=== PATIENT | female | born 1945 | race Caucasian/White ===

== ENCOUNTER → 2016-11-15 | Outpatient (CLI) | payer MEDICARE ==
--- NOTE | 2016-11-15 16:33 | CT ---
EXAMINATION TYPE: CT sinus wo con DATE OF EXAM: 11/15/2016 4:27 PM COMPARISON: CT facial bones September 17, 2012 HISTORY: Sinus pressure, cough, sore throat, and low grade fever. Chronic sinusitis per order CT DLP: 666.00 mGycm. Automated Exposure Control for Dose Reduction was Utilized. TECHNIQUE: CT scan of the sinuses is performed without contrast, axial images are obtained, coronal r eformatted images are also reviewed. FINDINGS: There is new mild to moderate mucosal thickening in the dominant right sphenoid sinus with some patchy opacification along right lateral aspect identified. The maxillary, ethmoid, and bilatera l frontal sinuses are well aerated without suspicious opacification. Left sphenoid sinus is felt wit hin normal limits The ostiomeatal complex is patent bilaterally on the coronal images. Visualized portion of mastoid air cells show no abnormal opacification. The globes are intact bilate rally. Visualized portion of brain parenchyma is unremarkable. IMPRESSION: Acute on chronic right sphenoid sinus disease is now present.
== END | disposition home or self-care (01) ==
LOC: RADCTMAIN 15:43
PROVIDERS: ATTEND Internal Medicine
DX: J01.30 Acute sphenoidal sinusitis, unspecified (principal); J32.3 Chronic sphenoidal sinusitis
CPT/HCPCS: 70486

== ENCOUNTER → 2017-01-20 | Outpatient (CLI) | payer MEDICARE ==
[2017-01-20 08:32] LABS: Ionized Calcium 5.7 mg/dL (4.5-5.3)
[2017-01-20 10:54] LABS: Hemoglobin A1C 6.1 % (4.2-6.1)
[2017-01-20 11:40] LABS: ALT 50 U/L (9-52); AST 32 U/L (14-36); Alkaline Phosphatase 70 U/L (38-126); Anion Gap 8 mmol/L; Blood Urea Nitrogen 15 mg/dL (7-17); Calcium 10.6 mg/dL (8.4-10.2); Carbon Dioxide 30 mmol/L (22-30); Chloride 106 mmol/L (98-107); Cholesterol 217 mg/dL (<200); Glucose 101 mg/dL (74-99); HDL Cholesterol 98 mg/dL (40-60); Magnesium 2.1 mg/dL (1.6-2.3); Non-African American GFR(MDRD) >60 (>60 ml/min/1.73 sqM); Potassium 4.5 mmol/L (3.5-5.1); Sodium 144 mmol/L (137-145); Triglycerides 99 mg/dL (<150)
[2017-01-20 17:13] LABS: ACTH <5.00 pg/mL (0.00-45.99)
== END ==
LOC: LABWHC1 07:59
PROVIDERS: ATTEND Internal Medicine Endocrinology, Diabetes & Metabolism
DX: E27.9 Disorder of adrenal gland, unspecified (principal); I10 Essential (primary) hypertension; E55.9 Vitamin D deficiency, unspecified; R73.09 Other abnormal glucose
CPT/HCPCS: 36415; 80053; 80061; 82024; 82306; 82330; 82533; 83036; 83735; 83970

== ENCOUNTER → 2017-02-20 | Outpatient (CLI) | payer MEDICARE ==
--- NOTE | 2017-02-20 14:04 | MM ---
Reason for exam: screening (asymptomatic). Last mammogram was performed 1 year and 3 months ago. History: Patient is postmenopausal. Family history of premenopausal breast cancer in mother at age 50. Reductions of both breasts, July 2005. Benign stereotactic core biopsy of the right breast, February 23, 2003. Benign stereotactic core biopsy of the left breast, August 28, 2000. Benign core biopsy of the left breast. Benign core biopsy of the right breast. Benign excisional biopsy of the right breast. Took estrogen for 20 years beginning at age 47. Physical Findings: A clinical breast exam by your physician is recommended on an annual basis and results should be correlated with mammographic findings. MG 3D Screening Mammo W/Cad Bilateral CC and MLO view(s) were taken. Prior study comparison: November 24, 2015, bilateral MG 3d screening mammo w/cad. June 28, 2014, bilateral MG diagnostic mammo w CAD CHARY. There are scattered fibroglandular densities. Finding: There are stable typically benign calcifications. There are typically benign calcifications. There is no discrete abnormality. Stable post operative changes. No significant changes in finding since November 24, 2015 and June 28, 2014. ASSESSMENT: Benign, BI-RAD 2 RECOMMENDATION: Routine screening mammogram of both breasts in 1 year.
== END | disposition home or self-care (01) ==
LOC: RADMAMWWP 09:43
PROVIDERS: ATTEND Internal Medicine Critical Care Medicine
DX: Z12.31 Encounter for screening mammogram for malignant neoplasm of breast (principal)
CPT/HCPCS: 77063; G0202

== ENCOUNTER → 2017-03-20 | Outpatient (CLI) | payer MEDICARE ==
--- NOTE | 2017-03-20 11:05 | US ---
EXAMINATION TYPE: US venous Doppler duplex LE LT DATE OF EXAM: 03/20/2017 10:34 AM COMPARISON: US 30 July 2016 CLINICAL HISTORY: M11.262 M25.562 Left Knee and calf pain. Torn left meniscus per patient. SIDE PERFORMED: Left TECHNIQUE: The lower extremity deep venous system is examined utilizing real time linear array sonog esteban with graded compression, Doppler sonography and color-flow sonography. VESSELS IMAGED: Common Femoral Vein Deep Femoral Vein Greater Saphenous Vein * Femoral Vein Popliteal Vein Small Saphenous Vein * Proximal Calf Veins (* superficial vessels) There is normal compressibility and color flow, normal spectral Doppler waveforms Left Leg: Negative for DVT Tech findings called to Sara at Dr Shetty's Office at exam's end. IMPRESSION: No evident deep venous thrombosis within the deep veins of the left lower extremity as de scribed, follow-up as indicated.
== END | disposition home or self-care (01) ==
LOC: RADUSWWP 10:06
PROVIDERS: ATTEND Orthopaedic Surgery
DX: M25.562 Pain in left knee (principal); M79.669 Pain in unspecified lower leg

== ENCOUNTER → 2017-04-14 | Outpatient (CLI) | payer MEDICARE ==
[2017-04-14 09:43] LABS: Aty Lym Flag Slight; CH 32.4; HCT 40.2 % (34.0-46.0); HDW 2.52; HGB 13.6 gm/dL (11.4-16.0); MCH 32.4 pg (25.0-35.0); MCHC 33.7 g/dL (31.0-37.0); MCV 95.9 fL (80.0-100.0); Mean Platelet Volume 6.8; RBC 4.19 m/uL (3.80-5.40); RDW 12.8 % (11.5-15.5); WBC 3.5 k/uL (3.8-10.6); WBC (Perox) 3.63
[2017-04-14 10:54] LABS: Add Differential Manual Differential
[2017-04-14 10:58] LABS: Nucleated Red Blood Cells 0 /100 WBC (0-0); Total Cells Counted 100
[2017-04-14 10:59] LABS: Manual Review Performed
[2017-04-14 12:03] LABS: ALT 42 U/L (9-52); AST 38 U/L (14-36); Alkaline Phosphatase 60 U/L (38-126); Anion Gap 9 mmol/L; Blood Urea Nitrogen 9 mg/dL (7-17); Calcium 10.4 mg/dL (8.4-10.2); Carbon Dioxide 29 mmol/L (22-30); Chloride 105 mmol/L (98-107); Glucose 96 mg/dL (74-99); Non-African American GFR(MDRD) >60 (>60 ml/min/1.73 sqM); Sodium 143 mmol/L (137-145); Total Bilirubin 0.4 mg/dL (0.2-1.3); Total Protein 6.5 g/dL (6.3-8.2)
== END | disposition home or self-care (01) ==
LOC: LABWHC1 08:38
PROVIDERS: ATTEND Internal Medicine Endocrinology, Diabetes & Metabolism
DX: R00.2 Palpitations (principal); I10 Essential (primary) hypertension; E21.0 Primary hyperparathyroidism; R73.09 Other abnormal glucose; D34 Benign neoplasm of thyroid gland; E27.9 Disorder of adrenal gland, unspecified
CPT/HCPCS: 36415; 80053; 82306; 84439; 84443; 84481; 85025

== ENCOUNTER → 2017-05-08 | Outpatient (CLI) | payer MEDICARE | END | disposition home or self-care (01) | LOC: LABWHC1 11:32 | PROVIDERS: ATTEND Psychiatry & Neurology Neurology | DX: G60.9 Hereditary and idiopathic neuropathy, unspecified (principal); G62.9 Polyneuropathy, unspecified; D68.9 Coagulation defect, unspecified | CPT/HCPCS: 36415; 82607; 84165; 84207; 85730 ==

== ENCOUNTER → 2017-05-14 | Outpatient (CLI) | payer MEDICARE ==
[2017-05-14 19:18] LABS: Blood Urea Nitrogen 16 mg/dL (7-17); Non-African American GFR(MDRD) >60 (>60 ml/min/1.73 sqM)
--- NOTE | 2017-05-14 20:11 | CT ---
EXAMINATION TYPE: CT abdomen w con DATE OF EXAM: 05/14/2017 COMPARISON: 10/07/2015 HISTORY: Bilateral upper quadrant pain, worse on left x several months. Some lower abdominal pain. CT DLP: 561.90 mGycm Automated exposure control for dose reduction was used. TECHNIQUE: Helical acquisition of images was performed from the lung bases through the top of iliac crest to include entire abdomen. CONTRAST: Performed with Oral Contrast and with IV Contrast, patient injected with 100 mL of Omnipaque 300. FINDINGS: Lung bases are clear. There is no pleural effusion. There is no pericardial effusion. Liver spleen pancreas gallbladder appear normal. Bile ducts are not dilated. There is no adrenal mass . There are multiple bilateral renal cortical cysts that measure up to 2.5 cm. There is no hydronephr osis. There is no retroperitoneal adenopathy. I see no bony destructive process. I see no intestinal wall thickening. There are no dilated loops. There is no ascites. IMPRESSION: SMALL RENAL CORTICAL CYSTS WITH PROBABLY NO CHANGE COMPARED TO OLD CT SCAN. SPONDYLOTIC CHANGES NOTED IN THE LUMBAR SPINE. THERE IS MILD SPINAL STENOSIS AT L4-5.
== END | disposition home or self-care (01) ==
LOC: RADCTMAIN 18:44
PROVIDERS: ATTEND Internal Medicine Critical Care Medicine
DX: R10.84 Generalized abdominal pain (principal)
CPT/HCPCS: 82565; 84520; 74160; 36415; Q9967

== ENCOUNTER → 2017-06-05 | Outpatient (CLI) | payer MEDICARE | END | disposition home or self-care (01) | LOC: LABWHC1 09:24 | PROVIDERS: ATTEND Pathology Anatomic Pathology & Clinical Pathology | DX: Z02.89 Encounter for other administrative examinations (principal) | CPT/HCPCS: 36415 ==

== ENCOUNTER 2017-06-27 10:59 | Day surgery (SDC) | payer MEDICARE ==
[2017-06-25 10:06] VITALS: BMI 29.1
[~2017-06-27 10:59] MED LIST: DEXAMETHASONE SOD PHOSPHATE 10 MG/ML 1 ML VIAL IV ONE; HYDROmorphone 1 MG/ML 1 ML SYRINGE IVP PRN; LACTATED RINGERS 1,000 ML IV SCH; MIDAZOLAM 2 MG/2 ML VIAL IV PRN; ONDANSETRON 4 MG/2 ML VIAL IVP ONE; Pre Op ABX Message 1 EACH MISC MISCELLANE ONE
[2017-06-27 11:21] VITALS: RESP 16
[2017-06-27] MEDS ORDERED: LIDOCAINE 1% 20 ML VIAL (10MG/ML) FOR IV START INTRADERMA ONE (11:34)
[2017-06-27 11:39] LABS: Glucose,Whole Blood 101 mg/dL (75-99)
[2017-06-27] MEDS ORDERED: HYDROCORTISONE SUCCINATE 100 MG/2 ML VIAL IV ONE (11:46)
[2017-06-27] MEDS ORDERED: SUCCINYLCHOLINE CHLORIDE 100 MG/5 ML SYR IV ONE (12:36)
[2017-06-27] MEDS ORDERED: fentaNYL (PF) 50 MCG/ML 2 ML AMP ONE (12:36)
[2017-06-27] MEDS ORDERED: MIDAZOLAM 2 MG/2 ML VIAL ONE (12:36)
[2017-06-27] MEDS ORDERED: LIDOCAINE 1% INJ 10MG/ML (20 ML MDV) ONE (12:36)
[2017-06-27] MEDS ORDERED: BUPIVACAINE (PF) 0.25% 30 ML VIAL INTRAARTIC ONE (12:36)
[2017-06-27] MEDS ORDERED: PROPOFOL 10 MG/ML 20 ML VIAL IV ONE (12:36)
[2017-06-27] MEDS ORDERED: KETOROLAC 30 MG/ML 1 ML VIAL ONE (12:36)
[2017-06-27 13:46] VITALS: TEMP 98
--- NOTE | 2017-06-27 13:52 | P.OP ---
Date of Procedure: 06/27/17 Preoperative Diagnosis: Postoperative Diagnosis: Procedure(s) Performed: PREOPERATIVE DIAGNOSIS: 1. Right knee lateral meniscus tear 2. Right knee osteoarthritis, tricompartmental POSTOPERATIVE DIAGNOSIS: 1. Right knee lateral meniscus tear, degenerative posterior horn 2. Right knee medial meniscus tear, posterior horn degenerative 3. Right knee osteoarthritis, patellofemoral, grade 3, medial grade 2, lateral grade 4 PROCEDURES PERFORMED: 1. Right knee arthroscopy, with partial lateral meniscectomy (25)%, posterior horn 2. Arthroscopic partial medial meniscectomy 10%, posterior horn 2. Right knee arthroscopic chondroplasty of patellofemoral and lateral compartments 2. Right knee arthroscopic partial synovectomy ANESTHESIA: owner spa director: None COMPLICATIONS: none ESTIMATED BLOOD LOSS: Less than 10 ml DISPOSITION: To post-anesthesia care unit INDICATIONS: Mrs. Thorpe is a 71-year-old female with a history of right knee pain consistent with arthritis and meniscus tear. She is having mechanical symptoms of catching snapping and popping. Patient presents to the operating room today for arthroscopy with trimming of the meniscus or repair as necessary as well as chondroplasty or smoothing of the articular surfaces. I have explained the procedure in detail as well as potential risks and complications as being inclusive of but not limited to: Bleeding, infection, scarring, discomfort, blood vessel and/or nerve damage, failure to relieve symptoms, persistence or recurrence and/or worsening of symptoms, blood clot, pulmonary embolism, limp, , and other risks, including the need for knee replacement. The consent form has been signed. PROCEDURE: After appropriate consent was obtained, the patient was taken to the operating room and placed supine on the operating table. General anesthesia was initiated. The knee was examined under anesthesia. Medial collateral, lateral collateral, anterior and posterior cruciate ligaments were all intact. Range of motion was 0-125 with mild crepitus in the patellofemoral compartment. Mild effusion but no soft tissue swelling was noted. Prepping and draping of the operative knee was performed in the usual sterile fashion using ChloraPrep. Care was taken that all pressure points were adequately padded. Leg lion and pneumotourniquet were used. ``Time-out" was called according to [facility] standards, confirming patient identity, surgical procedure, side, and antibiotic administration. The surgical portals were placed directly next to the patellar tendon medially and laterally. Camera and instruments were carefully inserted into the knee and arthroscopy was performed. Patellofemoral joint was first inspected. Mild synovitis was seen, and was resected where it appeared particularly inflamed. Patellofemoral joint was noted to be arthritic, with grade 3 changes present over 80 %. Chondroplasty was performed using a shaver and radiofrequency probe, removing unstable cartilage elements and smoothing the surface to eliminate step-off. Lateral compartment was then examined. Lateral meniscus tear was noted involving the posterior horn and appeared to be a stellate-type tear after visualization and probing. The meniscus tear was resected using a combination of basket forceps and shaver. Approximately 25 % of the meniscus was resected. The remaining meniscus was noted to be intact and stable. Hyaline cartilage showed grade 4 changes especially over the lateral femoral condyle. Chondroplasty was performed using a shaver and radiofrequency at a low setting. Medial compartment was then examined. Medial meniscus tear was noted involving the posterior horn and appeared to be a minimal undersurface degenerative-type tear after visualization and probing. The meniscus tear was resected using a combination of basket forceps and shaver. Approximately 10 % of the meniscus was resected. The remaining meniscus was noted to be intact and stable. Hyaline cartilage showed grade 2 changes without need for chondroplasty. Cruciate ligaments were noted to be intact. No loose bodies or ganglion cysts were noted around the cruciate ligaments. Medial and lateral gutters showed no evidence of loose bodies, but some mild synovitis was present and was resected with a shaver. Portals were then closed with 4-0 Monocryl suture. A quantity of Marcaine solution was injected into the knee and around the portal sites. Steri-Strips were applied and tourniquet was deflated. Sterile dressing and light compressive dressing was applied using Webril and WEN wrap. Patient tolerated the procedure well and taken to recovery room in stable condition. Sponge and needle counts were correct. Implants: Indications for Procedure: Operative Findings: Description of Procedure:
[2017-06-27] MEDS ORDERED: MEPERIDINE 50 MG/ML SYRINGE IVP ONE (14:16)
[2017-06-27] MEDS ORDERED: LACTATED RINGERS 1,000 ML IV ONE (14:20)
[2017-06-27 15:43] VITALS: PULSE 65
[2017-06-27 15:59] VITALS: BP 124/61
--- NOTE | 2017-07-02 08:31 | CDI ---
Dr. Kendrick Shetty Mrs. Tohrpe was seen on 06/27 for arthroscopic menisectomy and chondroplasty. The H&P indicates the laterality of the procedure to be on the Left knee. However, the OR indicates the procedure was done on the Right knee. Please clarify this conflicting documentation. Please clarify: *Menisectomy/Chondroplasty done on the LEFT knee *Menisectomy/Chondroplasty done on the RIGHT knee PLEASE RESPOND TO THIS QUERY BY DICTATING AN ADDENDUM TO YOUR OPERATIVE REPORT. Thank you for your assistance. RICH Kearney If you have any question, please contact Ornamental Iron Worker, Janey Rodriguez at . [employer]
--- NOTE | 2017-07-22 20:09 | CDI ---
Dr. Kendrick Shetty Mrs. Thorpe was seen on 06/27 for arthroscopic menisectomy and chondroplasty. The H&P and anesthesia record indicate the laterality of the procedure to be on the Left knee. However, the OR indicates the procedure was done on the Right knee. Please clarify this conflicting documentation. Please clarify: *Menisectomy/Chondroplasty done on the LEFT knee *Menisectomy/Chondroplasty done on the RIGHT knee PLEASE RESPOND TO THIS QUERY BY DICTATING AN ADDENDUM TO YOUR OPERATIVE REPORT. Thank you for your assistance. RICH Kearney If you have any question, please contact Drafter Plumbing, Janey Rodriguez at . [facility]ICJeff
== END 2017-06-27 17:00 | disposition home or self-care (01) ==
LOC: OR 10:59
PROVIDERS: ATTEND Orthopaedic Surgery
DX: M23.251 Derangement of posterior horn of lateral meniscus due to old tear or injury, right knee (principal); M23.221 Derangement of posterior horn of medial meniscus due to old tear or injury, right knee; M17.11 Unilateral primary osteoarthritis, right knee; M65.9 Synovitis and tenosynovitis, unspecified
CPT/HCPCS: 29880; J2250; J1100; J1720; J2175; J2405; J2001; J3010; J1885; J0330; J2704

== ENCOUNTER → 2017-09-01 | Outpatient (CLI) | payer MEDICARE | END | disposition home or self-care (01) | LOC: LABWHC1 12:53 | PROVIDERS: ATTEND Internal Medicine Critical Care Medicine | DX: R10.9 Unspecified abdominal pain (principal) | CPT/HCPCS: 36415; 80074 ==

== ENCOUNTER → 2017-11-12 | Outpatient (CLI) | payer MEDICARE ==
--- NOTE | 2017-11-12 13:26 | XR ---
EXAMINATION TYPE: XR chest w ap lordotic DATE OF EXAM: 11/12/2017 COMPARISON: 11/05/2017 HISTORY: Abnormal chest x-ray TECHNIQUE: Apical lordotic, PA, and lateral views of the chest are obtained. FINDINGS: There is no focal air space opacity, pleural effusion, or pneumothorax seen. The cardiac silhouette size is within normal limits. The osseous structures are intact. IMPRESSION: No acute cardiopulmonary process.
[2017-11-12 20:40] LABS: Parathyroid Hormone Intact 58.9 pg/mL (14.0-72.0)
[2017-11-12 22:37] LABS: DHEA Sulfate <3.0 ug/dL (26.0-430.0)
== END | disposition home or self-care (01) ==
LOC: LABWHC1 12:14
PROVIDERS: ATTEND Internal Medicine Endocrinology, Diabetes & Metabolism
DX: R91.8 Other nonspecific abnormal finding of lung field (principal); E83.52 Hypercalcemia; E27.9 Disorder of adrenal gland, unspecified
CPT/HCPCS: 36415; 71047; 82330; 82627; 83970; 86334; 86335

== ENCOUNTER → 2018-01-19 | Outpatient (CLI) | payer MEDICARE ==
[2018-01-19 09:33] LABS: Ionized Calcium 5.7 mg/dL (4.5-5.3)
[2018-01-19 09:49] LABS: ALT 30 U/L (9-52); AST 26 U/L (14-36); Alkaline Phosphatase 62 U/L (38-126); Anion Gap 7 mmol/L; Blood Urea Nitrogen 11 mg/dL (7-17); Calcium 10.6 mg/dL (8.4-10.2); Carbon Dioxide 32 mmol/L (22-30); Chloride 102 mmol/L (98-107); Cholesterol 173 mg/dL (<200); Glucose 93 mg/dL (74-99); HDL Cholesterol 82 mg/dL (40-60); LDL Cholesterol,Calculated 78 mg/dL (0-99); Potassium 4.6 mmol/L (3.5-5.1); Sodium 141 mmol/L (137-145); Total Bilirubin 0.9 mg/dL (0.2-1.3); Total Protein 6.7 g/dL (6.3-8.2); Triglycerides 63 mg/dL (<150)
[2018-01-19 17:17] LABS: Parathyroid Hormone Intact 46.2 pg/mL (14.0-72.0)
[2018-01-19 17:37] LABS: Vitamin D 25 Hydroxy 66.1 ng/mL (30.0-100.0)
[2018-01-19 19:52] LABS: Hemoglobin A1C 5.8 % (4.0-6.0)
== END | disposition home or self-care (01) ==
LOC: LABWHC1 08:35
PROVIDERS: ATTEND Internal Medicine Endocrinology, Diabetes & Metabolism
DX: E55.9 Vitamin D deficiency, unspecified (principal); E27.9 Disorder of adrenal gland, unspecified; D34 Benign neoplasm of thyroid gland; E78.5 Hyperlipidemia, unspecified
CPT/HCPCS: 36415; 80053; 80061; 82306; 82330; 83036; 83970; 84443

== ENCOUNTER → 2018-03-02 | Outpatient (CLI) | payer MEDICARE ==
--- NOTE | 2018-03-03 08:53 | MM ---
Reason for exam: additional evaluation requested from prior study. Last mammogram was performed 1 year ago. History: Patient is postmenopausal. Family history of premenopausal breast cancer in mother at age 50. Reductions of both breasts, July 2005. Benign stereotactic core biopsy of the right breast, February 23, 2003. Benign stereotactic core biopsy of the left breast, August 28, 2000. Benign core biopsy of the left breast. Benign core biopsy of the right breast. Benign excisional biopsy of the right breast. Took estrogen for 20 years beginning at age 47. Physical Findings: Nurse Summary: 0.5cm nodule in the right breast at 2 o'clock (nurse john). MG 3D Diag Mammo W/Cad CHARY Bilateral CC and MLO view(s) were taken. Prior study comparison: February 20, 2017, bilateral MG 3d screening mammo w/cad. November 24, 2015, bilateral MG 3d screening mammo w/cad. There are scattered fibroglandular densities. Finding: There are typically benign calcifications in both breasts. No suspicious abnormality. Bilateral post surgical change. Bilateral biopsy markers noted. These results were verbally communicated with the patient and result sheet given to the patient on 03/02/18. ASSESSMENT: Benign, BI-RAD 2 RECOMMENDATION: Routine screening mammogram of both breasts in 1 year.
== END | disposition home or self-care (01) ==
LOC: RADMAMWWP 10:10
PROVIDERS: ATTEND Internal Medicine Critical Care Medicine
DX: N64.4 Mastodynia (principal)
CPT/HCPCS: 77066; G0279

== ENCOUNTER → 2018-04-07 | Day surgery (SDC) | payer MEDICARE ==
[2018-03-31 09:10] VITALS: BMI 27.5
[~2018-04-07] MED LIST changes: +BUPIVACAINE (PF) 0.75% 5 ML, HYALURONIDASE, HUMAN RECOMB 150 UNIT, LIDOCAINE 2% (PF) 10... MISCELLANE ONE; +CYCLOPENTOLATE 1% OPHTH SOLN 2 ML BTL OP ONE; -DEXAMETHASONE SOD PHOSPHATE 10 MG/ML 1 ML VIAL IV ONE; +FLURBIPROFEN 0.03% OPHTH DROPS 2.5 ML BTL OP ONE; +GENTAMICIN/PREDNISOL AC OPHTH OINT 3.5GM OPHTHALMIC ONE; -HYDROmorphone 1 MG/ML 1 ML SYRINGE IVP PRN; +LIDOCAINE 1% 20 ML VIAL (10MG/ML) FOR IV START INTRADERMA PRN; -ONDANSETRON 4 MG/2 ML VIAL IVP ONE; +PHENYLEPHRINE 10% OPHTH DROPS 5 ML BTL OP ONE; -Pre Op ABX Message 1 EACH MISC MISCELLANE ONE; +TIMOLOL 0.5% OPHTH DROPS 5 ML BTL OP ONE
== END ==
LOC: OR 12:00
PROVIDERS: ATTEND Ophthalmology
DX: Z53.9 Procedure and treatment not carried out, unspecified reason (principal); H25.13 Age-related nuclear cataract, bilateral; Z88.1 Allergy status to other antibiotic agents

== ENCOUNTER → 2018-04-21 | Outpatient (CLI) | payer MEDICARE ==
[2018-04-21 17:11] LABS: Blood Urea Nitrogen 15 mg/dL (7-17)
--- NOTE | 2018-04-21 18:23 | CT ---
EXAMINATION TYPE: CT angio chest DATE OF EXAM: 04/21/2018 6:13 PM COMPARISON: NONE HISTORY: Patient complains of low grade fever and chest contusions post fall [address] DLP: 542 mGycm Automated exposure control for dose reduction was used. CONTRAST: CTA scan of the thorax is performed with IV Contrast, patient injected with 100 mL of Isovue 370, pul monary embolism protocol. There are 3-D post processed images.. FINDINGS: There is some coarsening of interstitial markings in the lower lung reyes. There is no evidence of a pulmonary mass. There is no pleural effusion. Heart appears enlarged. There is a rounded 5 cm densit y at the right cardiac border at the diaphragm. There is no mediastinal adenopathy. There are no hil ar masses. There is normal contrast opacification of the pulmonary arteries. I see no filling defect. There is no evidence of thoracic aortic aneurysm or dissection. IMPRESSION: NO EVIDENCE OF PULMONARY EMBOLISM. MINIMAL PULMONARY FIBROTIC CHANGES. 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
== END | disposition home or self-care (01) ==
LOC: RADCTMAIN 16:30
PROVIDERS: ATTEND Orthopaedic Surgery
DX: I26.99 Other pulmonary embolism without acute cor pulmonale (principal); M25.561 Pain in right knee; S80.01XD Contusion of right knee, subsequent encounter; M25.572 Pain in left ankle and joints of left foot; S92.102D Unspecified fracture of left talus, subsequent encounter for fracture with routine healing; M79.661 Pain in right lower leg; S80.11XD Contusion of right lower leg, subsequent encounter; S92.355D Nondisplaced fracture of fifth metatarsal bone, left foot, subsequent encounter for fracture with routine healing; R07.82 Intercostal pain
CPT/HCPCS: 82565; 84520; 71275; 36415; Q9967

== ENCOUNTER 2018-05-23 11:45 | Emergency (ER) | payer MEDICARE ==
--- NOTE | 2018-05-23 12:40 | ED ---
General Adult HPI - General Chief complaint: Skin/Abscess/Foreign Body Stated complaint: Rash on forehead Time Seen by Provider: 05/23/18 12:11 Source: patient, RN notes reviewed Mode of arrival: wheelchair Limitations: no limitations - History of Present Illness Initial comments: Patient is a pleasant 72-year-old female presenting to the emergency department with rash. Onset was around the fifth or seventh. Patient did see her primary care physician several days ago and was started on Valtrex. Patient states rash has progressed since that time. Patient does have mild discomfort. Patient states there is some mild irritation as well. Patient's original lesion started on the right upper eyelid/eyebrow region. Patient states this has slightly improved. Patient also has developed lesions of her right forehead and a couple in her right frontal scalp. Patient is unclear if there is any ear discomfort. Patient does have some chronic headaches. Patient states there is some discomfort of the skin near the area of the lesions. Patient states overall is becoming somewhat worse. - Related Data Home Medications Medication Instructions Recorded Confirmed Acetaminophen/Diphenhydramine 1 - 2 tab PO HS PRN 04/13/15 03/31/18 [Tylenol PM 500-25mg] Aspirin 81 mg PO BID 04/13/15 03/31/18 Azelastine HCl 2 sprays EA NOSTRIL BID 04/13/15 03/31/18 Diltiazem Oral [Cardizem*] 30 mg PO QAM 04/13/15 03/31/18 Hypromellose [Artificial Tears] 1 drop BOTH EYES TID PRN 04/13/15 03/31/18 Montelukast [Singulair] 10 mg PO HS 04/13/15 03/31/18 cycloSPORINE [Restasis] 1 drop BOTH EYES BID 04/13/15 03/31/18 Olopatadine HCl [Pataday] 1 drop BOTH EYES QAM 10/03/15 03/31/18 Rosuvastatin Calcium [Crestor] 10 mg PO HS 12/05/15 03/31/18 Budesonide/Formoterol Fumarate 2 puff IH BID 03/13/16 03/31/18 [Symbicort 80-4.5 Mcg Inhaler] Ranitidine HCl 150 mg PO HS 03/13/16 03/31/18 Albuterol Nebulized [Ventolin 2.5 mg INHALATION Q4H PRN 06/25/17 03/31/18 Nebulized] Baclofen 15 mg PO HS 06/25/17 03/31/18 Cetirizine HCl [Zyrtec] 10 mg PO DAILY 06/25/17 03/31/18 Diltiazem HCl 60 mg PO HS 06/25/17 03/31/18 Fluticasone Nasal [place] [Flonase 1 spray EA NOSTRIL DAILY PRN 06/25/17 03/31/18 Nasal [place]] Hydrocortisone [Cortef] 10 mg PO QAM 06/25/17 03/31/18 Bcaa 2 cap PO BID 03/31/18 Biotagen 1 scoop PO DAILY 03/31/18 Curcumin 1 each PO BID 03/31/18 Digestive Enzyme 1 tab PO TID-W/MEALS 03/31/18 Fish Oil 2300mg 2,300 mg PO DAILY 03/31/18 Gi Revive 2 tsp PO BID 03/31/18 Personalized Nutrition Compoun 1 package PO DAILY 03/31/18 Prasterone (Dhea)/Calcium Carb 10 mg PO DAILY 03/31/18 03/31/18 [Dhea 10 mg Tablet] Therbiotic Complete 1 cap PO DAILY 03/31/18 Ut Syngery 1 cap PO BID-W/MEALS 03/31/18 Previous Rx's Medication Instructions Recorded Sodium Chloride 0.65% Nasal [Deep 2 spray NASAL QID PRN #0 spray 12/08/15 Sea (Saline)] Allergies Allergy/AdvReac Type Severity Reaction Status Date / Time levofloxacin [From Levaquin] Allergy Rash/Hives Verified 05/23/18 11:58 Milk Containing Products AdvReac avoids Verified 05/23/18 11:58 [Dairy] dairy products wheat AdvReac avoids Verified 05/23/18 11:58 wheat products processed foods AdvReac avoids Uncoded 05/23/18 11:58 processed foods Review of Systems ROS Statement: Those systems with pertinent positive or pertinent negative responses have been documented in the HPI. ROS Other: All systems not noted in ROS Statement are negative. Constitutional: Denies: fever, chills Eyes: Denies: eye pain ENT: Denies: ear pain Respiratory: Denies: cough Cardiovascular: Denies: chest pain Endocrine: Denies: fatigue Gastrointestinal: Denies: abdominal pain Genitourinary: Denies: dysuria Musculoskeletal: Denies: back pain Skin: Reports: rash Neurological: Reports: headache (Patient states she does have chronic headaches and is on Neurontin secondary to this. Headaches are unchanged.). 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 History of Any Multi-Drug Resistant Organisms: C-DIFF Date of last positivie culture/infection: 09-27-2015 MDRO Source:: stool Past Surgical History: Adenoidectomy, Breast Surgery, Heart Catheterization, Hysterectomy, Joint Replacement, Orthopedic Surgery, Tonsillectomy Additional Past Surgical History / Comment(s): parathyroidectomy, left shoulder arthroscopy -bone spurs removed), epidural injections in back , egd/dilations for pyloric stenosis, pyloroplasty(d/T ulcer),colonoscopy-neg, lt breast bx neg , ventral hernia repair,mole on neck removed-neg, mainor breast reduction and abdominalplasty, LT KNEE SCOPE Past Anesthesia/Blood Transfusion Reactions: No Reported Reaction Additional Past Anesthesia/Blood Transfusion Reaction / Comment(s): takes a little while to wake up.no hx blood transfusion. Past Psychological History: No Psychological Hx Reported Smoking Status: Never smoker Past Alcohol Use History: None Reported Past Drug Use History: None Reported - Past Family History Brother(s) Family Medical History: Coronary Artery Disease (CAD) Additional Family Medical History / Comment(s): heart stents,2nd brother CABG Mother Family Medical History: Cancer Additional Family Medical History / Comment(s): ovarian and breast cancer Father Family Medical History: Coronary Artery Disease (CAD), Hyperlipidemia, Hypertension Additional Family Medical History / Comment(s): quad bypass in his 40's General Exam Limitations: no limitations General appearance: alert, in no apparent distress Head exam: Present: atraumatic Eye exam: Present: normal appearance, PERRL, EOMI, other (Flurosyn staining of the right eye does not reveal any uptake or dendritic change.) ENT exam: Present: normal oropharynx Neck exam: Present: normal inspection Respiratory exam: Present: normal lung sounds bilaterally Cardiovascular Exam: Present: regular rate, normal rhythm GI/Abdominal exam: Present: soft. Absent: tenderness Neurological exam: Present: alert Psychiatric exam: Present: normal affect, normal mood Skin exam: Present: other (Patient does have a single lesion of her right upper eyelid near the eyebrow that does appear to be improving.There may be a small eschar. Lesion of the right forehead does have some secondary satellite lesions. There is a small area of vesicular appearance. Scalp has 2-3 lesions as well. All lesions have mild tenderness.) Course Vital Signs 05/23/18 11:53 Temperature 98.1 F Pulse Rate 63 Respiratory 17 Rate Blood Pressure 143/79 O2 Sat by Pulse 100 Oximetry Medical Decision Making - Medical Decision Making Patient presents with symptoms similar to shingles/herpes zoster. Patient is informed of this and that she is on appropriate treatment. There is no signs of secondary infection at this time. Patient is advised that she can try medicated shampoo for her scalp if desired. Patient is advised of need for close follow-up with ophthalmology. Patient states she does see Dr. Springer. Disposition Clinical Impression: Shingles Disposition: HOME SELF-CARE Condition: Stable Instructions: Shingles (ED) Additional Instructions: Please follow-up with [facility] physician in the next couple days for recheck. Please follow-up with ophthalmology on Friday. Return for fever, increased rash, increased redness, swelling, eye problems, worsening symptoms or any other concerns. You may use Selsun Blue or other similar medicated shampoo to the scalp only. Is patient prescribed a controlled substance at d/c from ED?: No Referrals: Robson Curtis DO [Primary Care Provider] - 1-2 days Daren Cabrales MD [STAFF PHYSICIAN] - 1-2 days Franco French MD [STAFF PHYSICIAN] - 1-2 days Time of Disposition: 12:40
[2018-05-23 12:56] VITALS: BP 139/78; PULSE 70; RESP 16; TEMP 98
== END 2018-05-23 12:55 | disposition home or self-care (01) ==
LOC: EC 11:45
DX: B02.9 Zoster without complications (principal); J45.909 Unspecified asthma, uncomplicated; K21.9 Gastro-esophageal reflux disease without esophagitis; I10 Essential (primary) hypertension; E78.5 Hyperlipidemia, unspecified; G47.30 Sleep apnea, unspecified; Z99.89 Dependence on other enabling machines and devices; Z95.818 Presence of other cardiac implants and grafts; Z79.82 Long term (current) use of aspirin; Z79.51 Long term (current) use of inhaled steroids; Z79.52 Long term (current) use of systemic steroids; Z79.899 Other long term (current) drug therapy; Z88.1 Allergy status to other antibiotic agents; Z91.011 Allergy to milk products; Z91.018 Allergy to other foods
CPT/HCPCS: 99282

== ENCOUNTER → 2018-05-29 | Outpatient (CLI) | payer MEDICARE ==
--- NOTE | 2018-05-30 16:59 | ECHOF ---
Referral Reason:J98.5 Mass in the Mediastinum MEASUREMENTS -------- HEIGHT: 165.1 cm WEIGHT: 75.7 kg BP: RVIDd: 2.4 cm (< 3.3) IVSd: 1.1 cm (0.6 - 1.1) LVIDd: 4.0 cm (3.9 - 5.3) LVPWd: 1.0 cm (0.6 - 1.1) IVSs: 1.3 cm LVIDs: 2.6 cm LVPWs: 1.2 cm LA Diam: 3.0 cm (2.7 - 3.8) LAESV Index (A-L): 23.89 ml/m Ao Diam: 2.9 cm (2.0 - 3.7) AV Cusp: 1.8 cm (1.5 - 2.6) LA Diam: 3.8 cm (2.7 - 3.8) MV EXCURSION: 20.824 mm (> 18.000) MV EF SLOPE: 90 mm/s (70 - 150) EPSS: 0.4 cm MV E Mateo: 0.55 m/s MV DecT: 281 ms MV A Mateo: 0.81 m/s MV E/A Ratio: 0.67 RAP: 5.00 mmHg RVSP: 20.18 mmHg FINDINGS -------- Sinus rhythm. This was a technically good study. LV size, wall thickness and systolic function are normal, with an EF greater than 55%. The left hemal tricular size is normal. The right ventricle is normal in size. The left atrial size is normal. Normal LA size by volume 22+/-6 ml/m2. The right atrial size is normal. The aortic valve is trileaflet, and appears structurally normal. No aortic stenosis or regurgitation. The mitral valve is normal. Mild mitral regurgitation is present. Mild tricuspid regurgitation present. There is no evidence of pulmonary hypertension. The right v entricular systolic pressure, as measured by Doppler, is 20.18mmHg. Trace/mild (physiologic) pulmonic regurgitation. The aortic root size is normal. There is no pericardial effusion. CONCLUSIONS -------- 1. Sinus rhythm. 2. LV size, wall thickness and systolic function are normal, with an EF greater than 55%. 3. The left ventricular size is normal. 4. The left atrial size is normal. 5. The right atrial size is normal. 6. The aortic valve is trileaflet, and appears structurally normal. No aortic stenosis or regurgitati on. 7. Mild mitral regurgitation is present. 8. Mild tricuspid regurgitation present. 9. There is no evidence of pulmonary hypertension. 10. Trace/mild (physiologic) pulmonic regurgitation. 11. The aortic root size is normal. 12. There is no pericardial effusion. AUTO WASHER: Patt Miner RDCS
== END | disposition home or self-care (01) ==
LOC: RADECHMAIN 12:54
PROVIDERS: ATTEND Thoracic Surgery (Cardiothoracic Vascular Surgery)
DX: I08.1 Rheumatic disorders of both mitral and tricuspid valves (principal); Z88.1 Allergy status to other antibiotic agents
CPT/HCPCS: 93306

== ENCOUNTER → 2018-06-11 | Outpatient (CLI) | payer MEDICARE ==
[2018-06-11 08:11] LABS: Blood Urea Nitrogen 14 mg/dL (7-17)
--- NOTE | 2018-06-11 09:43 | CT ---
EXAMINATION TYPE: CT chest abdomen w con DATE OF EXAM: 06/11/2018 COMPARISON: 04/21/2018 and 05/14/2017 and 10/07/2015 HISTORY: 72-year-old female Mediastinal mass, inferior vena cava syndrome. TECHNIQUE: Contiguous axial scanning of the abdomen chest and abdomen following administration of 100 ml Isovue 300 IV contrast. Delayed images through the kidneys and coronal/sagittal reconstructions performed. CT DLP: 519.3 mGycm Automated exposure control for dose reduction was used. FINDINGS: Chest: Heart normal size without pericardial effusion. Mild coronary vessel calcifications are present. Mild atherosclerotic calcifications with conventional arch was a branching anatomy and normal aortic caliber. Small 8 mm nodule the left thyroid gland. No thoracic lymphadenopathy. Redemonstrated dilatation of the thoracic IVC at 4.5 cm wide. In retrospect, this was present back to at least 10/07/2015. There may be focal narrowing as the IVC descends to the liver but most of the h epatic IVC is normal caliber as is the remainder of the abdominal IVC. Minimal scattered emphysematous cysts. Mild subpleural interstitial scarring in the upper lungs. No c onsolidation or pleural effusion. ABDOMEN: Liver normal size. No focal liver lesion. No biliary ductal dilatation. Portal venous system is paten t Gallbladder, adrenal glands, spleen, and mildly atrophic pancreas show no gross abnormality. Multiple hypodense lesions in the kidneys, some of which are too small for accurate CT characterizati on, largest measuring 2.0 cm lateral right kidney compatible with cysts. No dilated small bowel, free fluid, or free air. No mesenteric or retroperitoneal lymphadenopathy. Normal appendix. Scattered moderate stool without pericolonic inflammatory change seen in the visuali zed upper abdomen. Bones: Degenerative disc disease and levoconvex scoliosis lumbar spine. Mild superior endplate compression d eformity of T11 was present back on 04/21/2018 but seems to be new from 05/14/2017. IMPRESSION: 1. 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 UNCHANGED BACK TO AT LEAST 10/07/2015. POSSIBLE POST STENOTIC DILATATION GIVEN SOMEWHAT NARROWED APPEARANCE TO THE IVC AT THE JUNCTION WITH THE HEPATIC IV C. 2. THE HEPATIC IVC AND THE REMAINDER OF THE ABDOMINAL IVC ARE NORMAL CALIBER AND PATENCY IS MAINTAINE D. 3. MINIMAL EMPHYSEMATOUS CHANGE.
== END | disposition home or self-care (01) ==
LOC: RADCTMAIN 07:25
PROVIDERS: ATTEND Thoracic Surgery (Cardiothoracic Vascular Surgery)
DX: J43.9 Emphysema, unspecified (principal); I87.8 Other specified disorders of veins
CPT/HCPCS: 82565; 84520; 71260; 74160; 36415; Q9967

== ENCOUNTER → 2018-07-30 | Outpatient (CLI) | payer MEDICARE ==
[2018-07-30 10:29] LABS: ALT 24 U/L (9-52); AST 24 U/L (14-36); Albumin 3.9 g/dL (3.5-5.0); Alkaline Phosphatase 55 U/L (38-126); Anion Gap 4 mmol/L; Blood Urea Nitrogen 11 mg/dL (7-17); Calcium 10.3 mg/dL (8.4-10.2); Carbon Dioxide 32 mmol/L (22-30); Chloride 106 mmol/L (98-107); Cholesterol 196 mg/dL (<200); Glucose 92 mg/dL (74-99); HDL Cholesterol 65 mg/dL (40-60); LDL Cholesterol,Calculated 120 mg/dL (0-99); Potassium 4.3 mmol/L (3.5-5.1); Sodium 142 mmol/L (137-145); Total Bilirubin 0.7 mg/dL (0.2-1.3); Total Protein 6.4 g/dL (6.3-8.2); Triglycerides 56 mg/dL (<150)
[2018-07-30 17:32] LABS: Vitamin D 25 Hydroxy 59.3 ng/mL (30.0-100.0)
[2018-07-30 17:48] LABS: Parathyroid Hormone Intact 56.8 pg/mL (14.0-72.0)
[2018-07-30 18:20] LABS: ACTH 14.3 pg/mL (0.00-45.99)
[2018-07-30 19:37] LABS: Hemoglobin A1C 5.5 % (4.0-6.0)
== END | disposition home or self-care (01) ==
LOC: LABWHC1 08:38
PROVIDERS: ATTEND Internal Medicine Endocrinology, Diabetes & Metabolism
DX: E55.9 Vitamin D deficiency, unspecified (principal); E27.9 Disorder of adrenal gland, unspecified; D34 Benign neoplasm of thyroid gland; E21.0 Primary hyperparathyroidism; I10 Essential (primary) hypertension; R73.09 Other abnormal glucose
CPT/HCPCS: 36415; 80053; 80061; 82024; 82306; 82533; 83036; 83970; 84443

== ENCOUNTER → 2018-08-04 | Outpatient (CLI) | payer MEDICARE | LOC: LABWHC1 06:40 | PROVIDERS: ATTEND Internal Medicine | DX: R53.83 Other fatigue (principal) | CPT/HCPCS: 36415 ==

== ENCOUNTER → 2019-01-14 | Outpatient (CLI) | payer MEDICARE | END | disposition home or self-care (01) | LOC: LABWHC1 08:28 | PROVIDERS: ATTEND Internal Medicine Endocrinology, Diabetes & Metabolism | DX: E27.0 Other adrenocortical overactivity (principal) | CPT/HCPCS: 36415; 82024; 82533 ==

== ENCOUNTER → 2019-03-11 | Outpatient (CLI) | payer MEDICARE ==
[2019-03-11 11:41] LABS: Albumin 4.2 g/dL (3.80-4.90); Albumin/Globulin Ratio 2.47 (1.60-3.17); Anion Gap 7.3 mmol/L (4.00-12.00); Calcium 10.3 mg/dL (8.7-10.3); Carbon Dioxide 30.7 mmol/L (21.6-31.8); Globulin 1.7 g/dL (1.6-3.3); Potassium 3.9 mmol/L (3.5-5.5); Total Bilirubin 0.8 mg/dL (0.2-1.2); Total Protein 5.9 g/dL (6.2-8.2)
[2019-03-11 12:21] LABS: T4, Free (Free Thyroxine) 0.8 ng/dL (0.80-1.80)
[2019-03-11 14:36] LABS: Hemoglobin A1C 5.8 % (4.0-6.0)
== END | disposition home or self-care (01) ==
LOC: LABWHC1 07:32
PROVIDERS: ATTEND Internal Medicine Endocrinology, Diabetes & Metabolism
DX: E21.0 Primary hyperparathyroidism (principal); E78.5 Hyperlipidemia, unspecified; R73.09 Other abnormal glucose
CPT/HCPCS: 36415; 80053; 80061; 82024; 82533; 83036; 84439; 84443

== ENCOUNTER → 2019-03-24 | Outpatient (CLI) | payer MEDICARE ==
--- NOTE | 2019-03-24 12:02 | BD ---
EXAMINATION TYPE: Axial Bone Density DATE OF EXAM: 03/24/2019 COMPARISON: 06.06.2016 CLINICAL HISTORY: M 85.80 Height: 65 Weight: 170.4 FRAX RISK QUESTIONS: Alcohol (3 or more units per day): no Family History (Parent hip fracture): no Glucocorticoids (More than 3mos): yes (Ex: prednisone, prednisolone, methylprednisolone, dexamethasone, and hydrocortisone). History of Fracture in Adulthood: yes Secondary Osteoporosis: 1. Type 1 Diabetes: no 2. Hyperthyroidism: no 3. Menopause before 45: yes 4. Malnutrition: no 5. Chronic liver disease: no Rheumatoid Arthritis: no Current Tobacco Use: no RISK FACTORS HISTORY OF: Family History of Osteoporosis: no Active: sometimes Diet low in dairy products/other sources of calcium: no Postmenopausal woman: hysterectomy age 45 Lost more than 2 inches in height since high school: no Frequent falls: no Adrenal Insufficiency: yes MEDICATIONS: many supplements, crestor, baclofen, allergy meds, inhalers, heart meds, Neurontin, aspi rin, hydrocortisone Prednisone or other steroids: yes How Lon years Additional History: EXAM MEASUREMENTS: Bone mineral densitometry was performed using the [employer] System. Bone mineral density as measured about the Lumbar spine is: ----- L1-L4(G/cm2): 1.198 T Score Values are as follows: ----- L2: -1.0 ----- L3: 1.3 ----- L4: 1.3 ----- L1-L4: 0.1 Bone mineral density has: decreased -0.1 % since study of: 06.06.2016 Bone mineral density about the R hip (g/cm2): 0.827 Bone mineral density about the L hip (g/cm2): 0.761 T Score values are as follows: -----R Neck: -1.5 -----L Neck: -2.0 -----R Total: -1.2 -----L Total: -1.8 Bone mineral density has: decreased -7.3 % since study of: 06.06.2016 IMPRESSION: Osteopenia (T Score between -2.5 and -1). There is slightly increased risk of fracture and the patient may be considered for treatment. Re-Screen 2-5 years. NOTE: T-SCORE=SD OF THE YOUNG ADULT MEAN.
== END | disposition home or self-care (01) ==
LOC: RADBDWWP 08:02
PROVIDERS: ATTEND Internal Medicine Endocrinology, Diabetes & Metabolism
DX: M85.80 Other specified disorders of bone density and structure, unspecified site (principal)
CPT/HCPCS: 77080

== ENCOUNTER → 2019-04-27 | Outpatient (CLI) | payer MEDICARE | END | disposition home or self-care (01) | LOC: LABWHC1 09:03 | PROVIDERS: ATTEND Internal Medicine Endocrinology, Diabetes & Metabolism | DX: E27.9 Disorder of adrenal gland, unspecified (principal) | CPT/HCPCS: 36415; 82024; 82533 ==

== ENCOUNTER → 2019-06-08 | Outpatient (CLI) | payer MEDICARE ==
[2019-06-08 16:07] LABS: Appearance,Urine Clear (Clear); Bilirubin,Urine Negative (Negative); Blood,Urine Moderate (Negative); Color,Urine Yellow; Glucose,Urine (UA) Negative (Negative); Ketones,Urine Negative (Negative); Leukocyte Esterase,Urine Small (Negative); Nitrite,Urine Negative (Negative); PH, Urine 7.5 (5.0-8.0); Protein,Urine Negative (Negative); RBC,Urine 10 /hpf (0-5); Specific Gravity,Urine 1.006 (1.001-1.035); Squamous Epithelial Cell,Urine 1 /hpf (0-4); Urobilinogen,Urine <2.0 mg/dL (<2.0); WBC,Urine 6 /hpf (0-5)
== END | disposition home or self-care (01) ==
LOC: LABWHC1 14:13
PROVIDERS: ATTEND Internal Medicine Critical Care Medicine
DX: N39.0 Urinary tract infection, site not specified (principal)
CPT/HCPCS: 81001; 87086

== ENCOUNTER → 2019-06-09 | Outpatient (CLI) | payer MEDICARE ==
--- NOTE | 2019-06-10 10:13 | MM ---
Reason for exam: additional evaluation requested from prior study. Last mammogram was performed 1 year and 3 months ago. History: Patient is postmenopausal. Family history of premenopausal breast cancer in mother at age 50. Reductions of both breasts, July 2005. Benign stereotactic core biopsy of the right breast, February 23, 2003. Benign stereotactic core biopsy of the left breast, August 28, 2000. Benign core biopsy of the left breast. Benign core biopsy of the right breast. Benign excisional biopsy of the right breast. Took estrogen for 20 years beginning at age 47. Physical Findings: Nurse did not find any significant physical abnormalities on exam. MG 3D Diag Mammo W/Cad CHARY Bilateral CC and MLO view(s) were taken. Prior study comparison: March 02, 2018, bilateral MG 3d diag mammo w/cad CHARY. February 20, 2017, bilateral MG 3d screening mammo w/cad. There are scattered fibroglandular densities. Benign appearing bilateral calcifications. Lateral left middle depth asymmetry appears stable. Left biopsy marker noted. These results were verbally communicated with the patient and result sheet given to the patient on 06/09/19. ASSESSMENT: Benign, BI-RAD 2 RECOMMENDATION: Routine screening mammogram of both breasts in 1 year. Manage on a clinical basis with regard to right lateral erythema, improving per history.
== END | disposition home or self-care (01) ==
LOC: RADMAMWWP 13:35
PROVIDERS: ATTEND Internal Medicine Critical Care Medicine
DX: N64.4 Mastodynia (principal)
CPT/HCPCS: 77066; G0279; 77062

== ENCOUNTER → 2019-06-10 | Outpatient (CLI) | payer MEDICARE | LOC: CPPFTMAIN 13:50 | PROVIDERS: ATTEND Internal Medicine Critical Care Medicine | DX: J45.909 Unspecified asthma, uncomplicated (principal) | CPT/HCPCS: 94060; 94726; 94729 ==

== ENCOUNTER → 2019-07-14 | Outpatient (CLI) | payer MEDICARE ==
[2019-07-14 18:08] LABS: Amorphous Sediment,Urine Rare /hpf; Appearance,Urine Clear (Clear); Bacteria,Urine Rare /hpf; Bilirubin,Urine Negative (Negative); Blood,Urine Moderate (Negative); Color,Urine Light Yellow; Glucose,Urine (UA) Negative (Negative); Ketones,Urine Negative (Negative); Leukocyte Esterase,Urine Small (Negative); Mucus,Urine Rare /hpf; Nitrite,Urine Negative (Negative); PH, Urine 6.5 (5.0-8.0); Protein,Urine Negative (Negative); RBC,Urine 39 /hpf (0-5); Specific Gravity,Urine 1.004 (1.001-1.035); Squamous Epithelial Cell,Urine 1 /hpf (0-4); Urobilinogen,Urine <2.0 mg/dL (<2.0); WBC,Urine 8 /hpf (0-5)
== END | disposition home or self-care (01) ==
LOC: LABWHC1 16:05
PROVIDERS: ATTEND Internal Medicine Critical Care Medicine
DX: R50.82 Postprocedural fever (principal)
CPT/HCPCS: 36415; 81001; 87040; 87086

== ENCOUNTER → 2019-07-22 | Outpatient (CLI) | payer MEDICARE ==
[2019-07-22 09:17] LABS: Basophils # (A) 0.1 k/uL (0-0.2); Basophils % (A) 1 %; Eosinophils # (A) 0.2 k/uL (0-0.7); Eosinophils % (A) 3 %; HGB 11.7 gm/dL (11.4-16.0); Lymphocytes # (A) 2.1 k/uL (1.0-4.8); Lymphocytes % (A) 39 %; MCH 31.7 pg (25.0-35.0); MCHC 32.5 g/dL (31.0-37.0); MCV 97.5 fL (80.0-100.0); Mean Platelet Volume 6.6; Monocytes # (A) 0.4 k/uL (0-1.0); Monocytes % (A) 8 %; Neutrophils # (A) 2.5 k/uL (1.3-7.7); Neutrophils % (A) 46 %; Platelet Count 325 k/uL (150-450); RDW 12.9 % (11.5-15.5); WBC 5.5 k/uL (3.8-10.6)
[2019-07-22 16:37] LABS: Vitamin D 25 Hydroxy 34.5 ng/mL (30.0-100.0)
[2019-07-22 16:40] LABS: African American GFR (CKD) 106.3 (60.0-200.0); Albumin 4.2 g/dL (3.80-4.90); Albumin/Globulin Ratio 2.21 (1.60-3.17); Anion Gap 8.1 mmol/L (4.00-12.00); BUN/Creat Ratio 16.67 Ratio (12.00-20.00); Calcium 10.6 mg/dL (8.7-10.3); Carbon Dioxide 24.9 mmol/L (21.6-31.8); Globulin 1.9 g/dL (1.6-3.3); Potassium 4.1 mmol/L (3.5-5.5); Total Bilirubin 0.5 mg/dL (0.3-1.2); Total Protein 6.1 g/dL (6.2-8.2)
[2019-07-22 18:40] LABS: ACTH 20.7 pg/mL (0.00-45.99)
== END | disposition home or self-care (01) ==
LOC: LABWHC1 08:46
PROVIDERS: ATTEND Internal Medicine Infectious Disease
DX: E27.40 Unspecified adrenocortical insufficiency (principal); M81.0 Age-related osteoporosis without current pathological fracture; E55.9 Vitamin D deficiency, unspecified
CPT/HCPCS: 36415; 80053; 82024; 82306; 82533; 83970; 85025

== ENCOUNTER 2019-08-09 19:31 | Emergency (ER) | payer MEDICARE ==
[2019-08-09 20:56] LABS: Basophils # (A) 0.1 k/uL (0-0.2); Basophils % (A) 1 %; Eosinophils # (A) 0.1 k/uL (0-0.7); Eosinophils % (A) 1 %; HCT 38.4 % (34.0-46.0); HGB 13.1 gm/dL (11.4-16.0); Lymphocytes # (A) 2.5 k/uL (1.0-4.8); Lymphocytes % (A) 27 %; MCH 31.7 pg (25.0-35.0); MCHC 34.1 g/dL (31.0-37.0); MCV 93.2 fL (80.0-100.0); Monocytes # (A) 0.6 k/uL (0-1.0); Monocytes % (A) 7 %; Neutrophils # (A) 5.8 k/uL (1.3-7.7); Neutrophils % (A) 63 %; Platelet Count 368 k/uL (150-450); RBC 4.12 m/uL (3.80-5.40); RDW 12.5 % (11.5-15.5); WBC 9.2 k/uL (3.8-10.6)
[2019-08-09 21:03] LABS: Appearance,Urine Clear (Clear); Bilirubin,Urine Negative (Negative); Blood,Urine Moderate (Negative); Color,Urine Light Yellow; Glucose,Urine (UA) Negative (Negative); Ketones,Urine Negative (Negative); Leukocyte Esterase,Urine Small (Negative); Mucus,Urine Rare /hpf; Nitrite,Urine Negative (Negative); PH, Urine 6.5 (5.0-8.0); Protein,Urine Negative (Negative); RBC,Urine 10 /hpf (0-5); Specific Gravity,Urine 1.003 (1.001-1.035); Squamous Epithelial Cell,Urine <1 /hpf (0-4); Urobilinogen,Urine <2.0 mg/dL (<2.0); WBC,Urine 4 /hpf (0-5)
[2019-08-09 21:05] LABS: ALT 25 U/L (9-52); AST 29 U/L (14-36); African American GFR (CKD) >90 (>60 ml/min/1.73 sqM); Albumin 4.5 g/dL (3.5-5.0); Alkaline Phosphatase 111 U/L (38-126); Anion Gap 14 mmol/L; Blood Urea Nitrogen 9 mg/dL (7-17); Calcium 11.4 mg/dL (8.4-10.2); Carbon Dioxide 24 mmol/L (22-30); Chloride 103 mmol/L (98-107); Creatine Kinase 57 U/L (30-135); Glucose 97 mg/dL (74-99); Phosphorus 3.3 mg/dL (2.5-4.5); Potassium 3.8 mmol/L (3.5-5.1); Sodium 141 mmol/L (137-145); Total Bilirubin 0.6 mg/dL (0.2-1.3); Total Protein 7.5 g/dL (6.3-8.2)
--- NOTE | 2019-08-09 21:06 | ED ---
Arrhythmia/Palpitations HPI - General Chief Complaint: Arrhythmia/Palpitations Stated Complaint: Heart Palpitations, Dizziness Time Seen by Provider: 08/09/19 20:26 Source: patient, RN notes reviewed, old records reviewed Mode of arrival: wheelchair Limitations: no limitations - History of Present Illness Initial Comments: This is a 73-year-old female the ER for evaluation. Patient is today for evaluation of palpitations and elevated heart rate. Patient does have history of atrial tachycardia of some sort and blood pressure which she does take dil tiazem 4. Patient fell and she had palpitations heart rate in the 120s prior to arrival. Symptoms resolved patient was not doing anything cardioverted no significant physical activity no chest pain or shortness of breath and diaphoresis. Patient denies drug or alcohol abuse. No other recent change in medications, patient currently asymptomatic MD Complaint: "heart racing", palpitations -: minutes(s), hour(s) Context: occurred during rest Arrhythmia History: SVT, on anti-coagulants Treatments Prior to Arrival: calcium channel gina - Related Data Home Medications Medication Instructions Recorded Confirmed Aspirin 81 mg PO BID 04/13/15 08/09/19 Diltiazem Oral [Cardizem*] 30 mg PO QAM 04/13/15 08/09/19 Montelukast [Singulair] 10 mg PO 04/13/15 08/09/19 Budesonide/Formoterol Fumarate 2 puff INHALATION RT-BID 03/13/16 08/09/19 [Symbicort 80-4.5 Mcg Inhaler] Albuterol Nebulized [Ventolin 2.5 mg INHALATION RT-QID PRN 06/25/17 08/09/19 Nebulized] Baclofen 10 mg PO 06/25/17 08/09/19 Diltiazem HCl 60 mg PO 06/25/17 08/09/19 Bcaa 2 cap PO BID 03/31/18 08/09/19 Biotagen 1 scoop PO DAILY 03/31/18 08/09/19 Digestive Enzyme 1 tab PO TID-W/MEALS 03/31/18 08/09/19 Gi Revive 2 tsp PO BID 03/31/18 08/09/19 Personalized Nutrition Compoun 1 package PO DAILY 03/31/18 08/09/19 Therbiotic Complete 1 cap PO DAILY 03/31/18 08/09/19 Cholecalciferol [Vitamin D3 (25 5,000 unit PO HS 08/09/19 08/09/19 Mcg = 1000 Iu)] Diltiazem Oral [Cardizem Oral] 30 mg PO ONCE PRN 08/09/19 08/09/19 Pregabalin [Lyrica] 50 mg PO BID 08/09/19 08/09/19 Rosuvastatin Calcium [Crestor] 10 mg PO HS 08/09/19 08/09/19 Allergies Allergy/AdvReac Type Severity Reaction Status Date / Time levofloxacin [From Levaquin] Allergy Rash/Hives Verified 08/09/19 20:26 Milk Containing Products AdvReac avoids Verified 08/09/19 20:26 [Dairy] dairy products wheat AdvReac avoids Verified 08/09/19 20:26 wheat products processed foods AdvReac avoids Uncoded 08/09/19 20:26 processed foods Review of Systems ROS Statement: Those systems with pertinent positive or pertinent negative responses have been documented in the HPI. ROS Other: All systems not noted in ROS Statement are negative. 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 History of Any Multi-Drug Resistant Organisms: C-DIFF Date of last positivie culture/infection: 09-27-2015 MDRO Source:: stool Past Surgical History: Adenoidectomy, Breast Surgery, Heart Catheterization, Hysterectomy, Joint Replacement, Orthopedic Surgery, Tonsillectomy Additional Past Surgical History / Comment(s): parathyroidectomy, left shoulder arthroscopy -bone spurs removed), epidural injections in back , egd/dilations for pyloric stenosis, pyloroplasty(d/T ulcer),colonoscopy-neg, lt breast bx neg, ventral hernia repair,mole on neck removed-neg, mainor breast reduction and abdominalplasty, LT KNEE SCOPE, spinal fusion 06/17/19 Past Anesthesia/Blood Transfusion Reactions: No Reported Reaction Additional Past Anesthesia/Blood Transfusion Reaction / Comment(s): takes a little while to wake up.no hx blood transfusion. Past Psychological History: No Psychological Hx Reported Smoking Status: Never smoker Past Alcohol Use History: None Reported Past Drug Use History: None Reported - Past Family History Brother(s) Family Medical History: Coronary Artery Disease (CAD) Additional Family Medical History / Comment(s): heart stents,2nd brother CABG Mother Family Medical History: Cancer Additional Family Medical History / Comment(s): ovarian and breast cancer Father Family Medical History: Coronary Artery Disease (CAD), Hyperlipidemia, Hypertension Additional Family Medical History / Comment(s): quad bypass in his 40's General Exam Limitations: no limitations General appearance: alert, in no apparent distress, anxious Head exam: Present: atraumatic, normocephalic, normal inspection Eye exam: Present: normal appearance, PERRL, EOMI. Absent: scleral icterus, con junctival injection, periorbital swelling ENT exam: Present: normal exam, mucous membranes moist Neck exam: Present: normal inspection. Absent: tenderness, meningismus, lymphadenopathy Respiratory exam: Present: normal lung sounds bilaterally. Absent: respiratory distress, wheezes, rales, rhonchi, stridor Cardiovascular Exam: Present: regular rate, normal rhythm, normal heart sounds. Absent: systolic murmur, diastolic murmur, rubs, gallop, clicks GI/Abdominal exam: Present: soft, normal bowel sounds. Absent: distended, tenderness, guarding, rebound, rigid Extremities exam: Present: normal inspection, full ROM, normal capillary refill. Absent: tenderness, pedal edema, joint swelling, calf tenderness Back exam: Present: normal inspection Neurological exam: Present: alert, oriented X3, CN II-XII intact Psychiatric exam: Present: normal affect, normal mood Skin exam: Present: warm, dry, intact, normal color. 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 Symptoms resolved here in ER patient's a symptomatically labwork is normal EKG is negative and patient can be discharged home - Lab Data Result diagrams: 08/09/19 20:22 08/09/19 20:22 Lab Results 08/09/19 08/09/19 08/09/19 Range/Units 20:20 20:22 20:22 WBC 9.2 (3.8-10.6) k/uL RBC 4.12 (3.80-5.40) m/uL Hgb 13.1 (11.4-16.0) gm/dL Hct 38.4 (34.0-46.0) % MCV 93.2 (80.0-100.0) fL MCH 31.7 (25.0-35.0) pg MCHC 34.1 (31.0-37.0) g/dL RDW 12.5 (11.5-15.5) % Plt Count 368 (150-450) k/uL Neutrophils % 63 % Lymphocytes % 27 % Monocytes % 7 % Eosinophils % 1 % Basophils % 1 % Neutrophils # 5.8 (1.3-7.7) k/uL Lymphocytes # 2.5 (1.0-4.8) k/uL Monocytes # 0.6 (0-1.0) k/uL Eosinophils # 0.1 (0-0.7) k/uL Basophils # 0.1 (0-0.2) k/uL PT (9.0-12.0) sec INR (<1.2) APTT (22.0-30.0) sec Sodium 141 (137-145) mmol/L Potassium 3.8 (3.5-5.1) mmol/L Chloride 103 (98-107) mmol/L Carbon Dioxide 24 (22-30) mmol/L Anion Gap 14 mmol/L BUN 9 (7-17) mg/dL Creatinine 0.53 (0.52-1.04) mg/dL Est GFR (CKD-EPI)AfAm >90 (>60 ml/min/1.73 sqM) Est GFR (CKD-EPI)NonAf >90 (>60 ml/min/1.73 sqM) Glucose 97 (74-99) mg/dL Calcium 11.4 H (8.4-10.2) mg/dL Phosphorus 3.3 (2.5-4.5) mg/dL Magnesium 2.0 (1.6-2.3) mg/dL Total Bilirubin 0.6 (0.2-1.3) mg/dL AST 29 (14-36) U/L ALT 25 (9-52) U/L Alkaline Phosphatase 111 (38-126) U/L Creatine Kinase 57 (30-135) U/L Troponin I (0.000-0.034) ng/mL NT-Pro-B Natriuret Pep pg/mL Total Protein 7.5 (6.3-8.2) g/dL Albumin 4.5 (3.5-5.0) g/dL TSH 1.800 (0.465-4.680) mIU/L Urine Color Light Yellow Urine Appearance Clear (Clear) Urine pH 6.5 (5.0-8.0) Ur Specific [place] 1.003 (1.001-1.035) Urine Protein Negative (Negative) Urine Glucose (UA) Negative (Negative) Urine Ketones Negative (Negative) Urine Blood Moderate H (Negative) Urine Nitrite Negative (Negative) Urine Bilirubin Negative (Negative) Urine Urobilinogen <2.0 (<2.0) mg/dL Ur Leukocyte Esterase Small H (Negative) Urine RBC 10 H (0-5) /hpf Urine WBC 4 (0-5) /hpf Ur Squamous Epith Cells <1 (0-4) /hpf Urine Mucus Rare H (None) /hpf 08/09/19 08/09/19 08/09/19 Range/Units 20:22 20:22 20:22 WBC (3.8-10.6) k/uL RBC (3.80-5.40) m/uL Hgb (11.4-16.0) gm/dL Hct (34.0-46.0) % MCV (80.0-100.0) fL MCH (25.0-35.0) pg MCHC (31.0-37.0) g/dL RDW (11.5-15.5) % Plt Count (150-450) k/uL Neutrophils % % Lymphocytes % % Monocytes % % Eosinophils % % Basophils % % Neutrophils # (1.3-7.7) k/uL Lymphocytes # (1.0-4.8) k/uL Monocytes # (0-1.0) k/uL Eosinophils # (0-0.7) k/uL Basophils # (0-0.2) k/uL PT 11.1 (9.0-12.0) sec INR 1.0 (<1.2) APTT 24.6 (22.0-30.0) sec Sodium (137-145) mmol/L Potassium (3.5-5.1) mmol/L Chloride (98-107) mmol/L Carbon Dioxide (22-30) mmol/L Anion Gap mmol/L BUN (7-17) mg/dL Creatinine (0.52-1.04) mg/dL Est GFR (CKD-EPI)AfAm (>60 ml/min/1.73 sqM) Est GFR (CKD-EPI)NonAf (>60 ml/min/1.73 sqM) Glucose (74-99) mg/dL Calcium (8.4-10.2) mg/dL Phosphorus (2.5-4.5) mg/dL Magnesium (1.6-2.3) mg/dL Total Bilirubin (0.2-1.3) mg/dL AST (14-36) U/L ALT (9-52) U/L Alkaline Phosphatase (38-126) U/L Creatine Kinase (30-135) U/L Troponin I <0.012 (0.000-0.034) ng/mL NT-Pro-B Natriuret Pep 189 pg/mL Total Protein (6.3-8.2) g/dL Albumin (3.5-5.0) g/dL TSH (0.465-4.680) mIU/L Urine Color Urine Appearance (Clear) Urine pH (5.0-8.0) Ur Specific [place] (1.001-1.035) Urine Protein (Negative) Urine Glucose (UA) (Negative) Urine Ketones (Negative) Urine Blood (Negative) Urine Nitrite (Negative) Urine Bilirubin (Negative) Urine Urobilinogen (<2.0) mg/dL Ur Leukocyte Esterase (Negative) Urine RBC (0-5) /hpf Urine WBC (0-5) /hpf Ur Squamous Epith Cells (0-4) /hpf Urine Mucus (None) /hpf - Radiology Data Radiology results: report reviewed (This x-rays negative for acute disease), image reviewed Disposition Clinical Impression: Tachycardia, Palpitations Disposition: HOME SELF-CARE Condition: Good Instructions (If sedation given, give patient instructions): Heart Palpitations (ED) Is patient prescribed a controlled substance at d/c from ED?: No Referrals: Robson Curtis DO [Primary Care Provider] - 1-2 days
[2019-08-09 21:09] LABS: Partial Thromboplastin Time 24.6 sec (22.0-30.0); Prothrombin Time 11.1 sec (9.0-12.0)
--- NOTE | 2019-08-09 21:09 | XR ---
EXAMINATION TYPE: XR chest 2V DATE OF EXAM: 08/09/2019 COMPARISON: 12/19/2017 12/19/2017 HISTORY: Syncope TECHNIQUE: Frontal and lateral views of the chest are obtained. FINDINGS: Heart and mediastinum are normal. Lungs are clear. Diaphragm is normal. There are chest le ads. Bony thorax is intact. IMPRESSION: Normal chest. No change.
[2019-08-09 23:09] VITALS: BP 133/88; PULSE 78; RESP 18; TEMP 98
== END 2019-08-09 23:04 | disposition home or self-care (01) ==
LOC: EC 19:31
DX: R00.2 Palpitations (principal); R00.0 Tachycardia, unspecified; J45.909 Unspecified asthma, uncomplicated; E78.5 Hyperlipidemia, unspecified; I10 Essential (primary) hypertension; M19.90 Unspecified osteoarthritis, unspecified site; G47.30 Sleep apnea, unspecified; Z88.1 Allergy status to other antibiotic agents; Z91.011 Allergy to milk products; Z91.018 Allergy to other foods; Z79.01 Long term (current) use of anticoagulants; Z79.51 Long term (current) use of inhaled steroids; Z79.82 Long term (current) use of aspirin; Z79.899 Other long term (current) drug therapy; Z95.818 Presence of other cardiac implants and grafts; Z98.1 Arthrodesis status; Z86.79 Personal history of other diseases of the circulatory system; Z99.89 Dependence on other enabling machines and devices; Z82.49 Family history of ischemic heart disease and other diseases of the circulatory system
CPT/HCPCS: 36415; 71046; 80053; 81001; 82550; 83735; 83880; 84100; 84443; 84484; 85025; 85610; 85730; 93005; 99285

== ENCOUNTER → 2019-08-13 | Outpatient (CLI) | payer MEDICARE ==
[2019-08-13 11:29] LABS: Ionized Calcium 6.2 mg/dL (4.5-5.3)
[2019-08-13 12:56] LABS: ACTH 36.3 pg/mL (0.00-45.99)
[2019-08-13 13:39] LABS: Vitamin D 25 Hydroxy 56.9 ng/mL (30.0-100.0)
[2019-08-13 14:01] LABS: African American GFR (CKD) 106.3 (60.0-200.0); Albumin 4.3 g/dL (3.80-4.90); Albumin/Globulin Ratio 2.15 (1.60-3.17); Anion Gap 9.7 mmol/L (4.00-12.00); BUN/Creat Ratio 13.33 Ratio (12.00-20.00); Carbon Dioxide 24.3 mmol/L (21.6-31.8); Phosphorus 3.2 mg/dL (2.4-5.1); Potassium 4.1 mmol/L (3.5-5.5); Total Bilirubin 0.6 mg/dL (0.3-1.2); Total Protein 6.3 g/dL (6.2-8.2)
[2019-08-13 18:24] LABS: Calcium 24 Hour,Urine 206.4 mg/24Hr (100.0-250.0)
== END | disposition home or self-care (01) ==
LOC: LABWHC1 06:40
PROVIDERS: ATTEND Internal Medicine
DX: E21.0 Primary hyperparathyroidism (principal); E27.9 Disorder of adrenal gland, unspecified
CPT/HCPCS: 36415; 80053; 81050; 82024; 82306; 82330; 82340; 82533; 83970; 84100

== ENCOUNTER 2019-08-19 08:28 | Inpatient (IN) | payer MEDICARE ==
[2019-08-19 10:35] LABS: Basophils % (A) 1 %; Eosinophils # (A) 0.1 k/uL (0-0.7); Eosinophils % (A) 2 %; HCT 36.8 % (34.0-46.0); HGB 12.2 gm/dL (11.4-16.0); Lymphocytes # (A) 1.9 k/uL (1.0-4.8); Lymphocytes % (A) 36 %; MCH 32.3 pg (25.0-35.0); MCHC 33.1 g/dL (31.0-37.0); MCV 97.4 fL (80.0-100.0); Mean Platelet Volume 5.8; Monocytes # (A) 0.4 k/uL (0-1.0); Monocytes % (A) 7 %; Neutrophils # (A) 2.7 k/uL (1.3-7.7); Neutrophils % (A) 51 %; Platelet Count 297 k/uL (150-450); RBC 3.78 m/uL (3.80-5.40); RDW 12.5 % (11.5-15.5); WBC 5.3 k/uL (3.8-10.6)
[2019-08-19 10:44] LABS: Partial Thromboplastin Time 24.1 sec (22.0-30.0); Prothrombin Time 10.6 sec (9.0-12.0)
[2019-08-19 10:48] LABS: ALT 22 U/L (9-52); AST 29 U/L (14-36); African American GFR (CKD) >90 (>60 ml/min/1.73 sqM); Albumin 4.1 g/dL (3.5-5.0); Alkaline Phosphatase 98 U/L (38-126); Anion Gap 7 mmol/L; Blood Urea Nitrogen 9 mg/dL (7-17); Carbon Dioxide 27 mmol/L (22-30); Chloride 108 mmol/L (98-107); Creatine Kinase 50 U/L (30-135); Glucose 91 mg/dL (74-99); Magnesium 2.1 mg/dL (1.6-2.3); Potassium 3.8 mmol/L (3.5-5.1); Sodium 142 mmol/L (137-145); Total Bilirubin 0.5 mg/dL (0.2-1.3); Total Protein 6.8 g/dL (6.3-8.2)
[2019-08-19 11:04] LABS: D-Dimer 4.03 mg/L FEU (<0.60)
--- NOTE | 2019-08-19 11:27 | CT ---
EXAMINATION TYPE: CT angio chest DATE OF EXAM: 08/19/2019 COMPARISON: 06/29/2018 HISTORY: 73 year-old female shortness of breath, Positive DVT TECHNIQUE: Contiguous axial scanning of the chest performed with IV Contrast, patient injected with 8 0 mL of Isovue 370. Coronal/sagittal MIP reconstructions performed. CT DLP: 367.2 mGycm Automated exposure control for dose reduction was used. FINDINGS: Heart limits of normal in size without pericardial effusion. Aorta is normal caliber with conventional arch vessel branching anatomy. Satisfactory opacification of the pulmonary arterial system with a segmental branch pulmonary embolus left upper lobe. No flattening of the interventricular septum or reflux of contrast into the hepatic veins. No thoracic lymphadenopathy by CT size criteria. Prominent dependent atelectasis. Calcified granuloma right lower lobe. Mild biapical pleural-parenchy mal scarring. Right upper lobe emphysematous cyst. Visualized upper abdomen shows unilateral right renal cyst measuring 2.1 cm and suggestion of a tiny hernia. Bones: No osseous destructive process. IMPRESSION: 1. EXAM POSITIVE FOR A SOLITARY SEGMENTAL BRANCH LEFT UPPER LOBE PULMONARY EMBOLUS. 2. COPD WITH MINIMAL EMPHYSEMATOUS CYST IN THE RIGHT UPPER LOBE. Findings called to the Dr. Blount in the ER at 11:24 AM.
--- NOTE | 2019-08-19 12:47 | ED ---
Extremity Problem HPI - General Chief complaint: Extremity Problem,Nontraumatic Stated complaint: positive DVT Time Seen by Provider: 08/19/19 09:01 Source: patient, RN notes reviewed Mode of arrival: wheelchair Limitations: no limitations - History of Present Illness Initial comments: This is a 73-year-old female who was sent in today by her doctor for venous Dopplers to rule out DVT. She does have positive findings on both lower extremities to the popliteal veins. Additionally she does states she's been having some intermittent episodes of shortness of breath no overt chest pain no palpitations or other symptoms. She currently does have an event monitor on she's had on for about 2 weeks and will extend out to MD Complaint: extremity pain, extremity swelling - Related Data Home Medications Medication Instructions Recorded Confirmed Diltiazem Oral [Cardizem*] 30 mg PO QAM 04/13/15 08/19/19 Montelukast [Singulair] 10 mg PO HS 04/13/15 08/19/19 Budesonide/Formoterol Fumarate 2 puff INHALATION RT-BID 03/13/16 08/19/19 [Symbicort 80-4.5 Mcg Inhaler] Albuterol Nebulized [Ventolin 2.5 mg INHALATION RT-QID PRN 06/25/17 08/19/19 Nebulized] Baclofen 10 mg PO HS 06/25/17 08/19/19 Diltiazem HCl 60 mg PO HS 06/25/17 08/19/19 Cholecalciferol [Vitamin D3 (25 5,000 unit PO HS 08/09/19 08/19/19 Mcg = 1000 Iu)] Pregabalin [Lyrica] 50 mg PO BID 08/09/19 08/19/19 Rosuvastatin Calcium [Crestor] 10 mg PO HS 08/09/19 08/19/19 L.acidoph,Paracasei, B.lactis 1 cap PO TID 08/19/19 08/19/19 [Probiotic] Allergies Allergy/AdvReac Type Severity Reaction Status Date / Time levofloxacin [From Levaquin] Allergy Rash/Hives Verified 08/19/19 09:44 lacosamide [From Vimpat] AdvReac Confusion Verified 08/19/19 09:44 Milk Containing Products AdvReac avoids Verified 08/19/19 09:44 [Dairy] dairy products wheat AdvReac avoids Verified 08/19/19 09:44 wheat products processed foods AdvReac avoids Uncoded 08/19/19 09:44 processed foods Review of Systems ROS Statement: Those systems with pertinent positive or pertinent negative responses have been documented in the HPI. ROS Other: All systems not noted in ROS Statement are negative. Past Medical History Past Medical History: Asthma, Eye Disorder, GERD/Reflux, Hyperlipidemia, Hypertension, Osteoarthritis (OA), Skin Disorder, Sleep Apnea/CPAP/BIPAP, Thyroid Disorder Additional Past Medical History / Comment(s): chronic neck pain, back pain- ddd/djd, BILAT cataracts, shingles 2004, SECONDARY adrenal insufficiency R/T HEALTH SAFETY COORDINATOR STEROID USE History of Any Multi-Drug Resistant Organisms: C-DIFF Date of last positivie culture/infection: 09-27-2015 MDRO Source:: stool Past Surgical History: Adenoidectomy, Breast Surgery, Heart Catheterization, Hysterectomy, Joint Replacement, Orthopedic Surgery, Tonsillectomy Additional Past Surgical History / Comment(s): parathyroidectomy, left shoulder arthroscopy -bone spurs removed), epidural injections in back , egd/dilations f or pyloric stenosis, pyloroplasty(d/T ulcer),colonoscopy-neg, lt breast bx neg, ventral hernia repair,mole on neck removed-neg, mainor breast reduction and abdominalplasty, LT KNEE SCOPE, spinal fusion 06/17/19 Past Anesthesia/Blood Transfusion Reactions: No Reported Reaction Additional Past Anesthesia/Blood Transfusion Reaction / Comment(s): takes a li ttle while to wake up.no hx blood transfusion. Past Psychological History: No Psychological Hx Reported Smoking Status: Never smoker Past Alcohol Use History: None Reported Past Drug Use History: None Reported - Past Family History Brother(s) Family Medical History: Coronary Artery Disease (CAD) Additional Family Medical History / Comment(s): heart stents,2nd brother CABG Mother Family Medical History: Cancer Additional Family Medical History / Comment(s): ovarian and breast cancer Father Family Medical History: Coronary Artery Disease (CAD), Hyperlipidemia, Hypertension Additional Family Medical History / Comment(s): quad bypass in his 40's General Exam - General Exam Comments Initial Comments: This is a well-developed well-nourished awake alert oriented x 3 female Limitations: no limitations General appearance: alert, in no apparent distress Head exam: Present: atraumatic, normocephalic, normal inspection Eye exam: Present: normal appearance, PERRL, EOMI. Absent: scleral icterus, conjunctival injection, periorbital swelling ENT exam: Present: normal exam, mucous membranes moist Neck exam: Present: normal inspection. Absent: tenderness, meningismus, lymphadenopathy Respiratory exam: Present: normal lung sounds bilaterally. Absent: respiratory distress, wheezes, rales, rhonchi, stridor Cardiovascular Exam: Present: regular rate, normal rhythm, normal heart sounds. Absent: systolic murmur, diastolic murmur, rubs, gallop, clicks GI/Abdominal exam: Present: soft, normal bowel sounds. Absent: distended, tenderness, guarding, rebound, rigid Extremities exam: Present: full ROM, tenderness, normal capillary refill, calf tenderness. Absent: pedal edema, joint swelling Back exam: Present: normal inspection Neurological exam: Present: alert, oriented X3, CN II-XII intact Psychiatric exam: Present: normal affect, normal mood Skin exam: Present: warm, dry, intact, normal color. Absent: rash Course Vital Signs 08/19/19 08/19/19 08/19/19 08:29 09:00 09:30 Temperature 97.4 F L Pulse Rate 78 82 Respiratory 18 Rate Blood Pressure 152/79 147/82 150/69 O2 Sat by Pulse 98 99 99 Oximetry 08/19/19 08/19/19 08/19/19 10:00 12:00 12:30 Temperature Pulse Rate 88 82 80 Respiratory 18 18 16 Rate Blood Pressure 155/74 119/85 171/77 O2 Sat by Pulse 98 100 100 Oximetry 08/19/19 13:00 Temperature Pulse Rate 79 Respiratory 16 Rate Blood Pressure 175/76 O2 Sat by Pulse 100 Oximetry Medical Decision Making - Medical Decision Making Patient will be admitted I did discuss case with Dr. Curtis. Patient be admitted to Dr. Billings's group. - Lab Data Result diagrams: 08/19/19 10:12 08/19/19 10:12 Lab Results 08/19/19 08/19/19 08/19/19 Range/Units 10:12 10:12 10:12 WBC 5.3 (3.8-10.6) k/uL RBC 3.78 L (3.80-5.40) m/uL Hgb 12.2 (11.4-16.0) gm/dL Hct 36.8 (34.0-46.0) % MCV 97.4 (80.0-100.0) fL MCH 32.3 (25.0-35.0) pg MCHC 33.1 (31.0-37.0) g/dL RDW 12.5 (11.5-15.5) % Plt Count 297 (150-450) k/uL Neutrophils % 51 % Lymphocytes % 36 % Monocytes % 7 % Eosinophils % 2 % Basophils % 1 % Neutrophils # 2.7 (1.3-7.7) k/uL Lymphocytes # 1.9 (1.0-4.8) k/uL Monocytes # 0.4 (0-1.0) k/uL Eosinophils # 0.1 (0-0.7) k/uL Basophils # 0.0 (0-0.2) k/uL PT 10.6 (9.0-12.0) sec INR 1.0 (<1.2) APTT 24.1 (22.0-30.0) sec D-Dimer 4.03 H (<0.60) mg/L FEU Sodium 142 (137-145) mmol/L Potassium 3.8 (3.5-5.1) mmol/L Chloride 108 H (98-107) mmol/L Carbon Dioxide 27 (22-30) mmol/L Anion Gap 7 mmol/L BUN 9 (7-17) mg/dL Creatinine 0.50 L (0.52-1.04) mg/dL Est GFR (CKD-EPI)AfAm >90 (>60 ml/min/1.73 sqM) Est GFR (CKD-EPI)NonAf >90 (>60 ml/min/1.73 sqM) Glucose 91 (74-99) mg/dL Calcium 11.0 H (8.4-10.2) mg/dL Magnesium 2.1 (1.6-2.3) mg/dL Total Bilirubin 0.5 (0.2-1.3) mg/dL AST 29 (14-36) U/L ALT 22 (9-52) U/L Alkaline Phosphatase 98 (38-126) U/L Creatine Kinase 50 (30-135) U/L Troponin I (0.000-0.034) ng/mL Total Protein 6.8 (6.3-8.2) g/dL Albumin 4.1 (3.5-5.0) g/dL 08/19/19 Range/Units 10:12 WBC (3.8-10.6) k/uL RBC (3.80-5.40) m/uL Hgb (11.4-16.0) gm/dL Hct (34.0-46.0) % MCV (80.0-100.0) fL MCH (25.0-35.0) pg MCHC (31.0-37.0) g/dL RDW (11.5-15.5) % Plt Count (150-450) k/uL Neutrophils % % Lymphocytes % % Monocytes % % Eosinophils % % Basophils % % Neutrophils # (1.3-7.7) k/uL Lymphocytes # (1.0-4.8) k/uL Monocytes # (0-1.0) k/uL Eosinophils # (0-0.7) k/uL Basophils # (0-0.2) k/uL PT (9.0-12.0) sec INR (<1.2) APTT (22.0-30.0) sec D-Dimer (<0.60) mg/L FEU Sodium (137-145) mmol/L Potassium (3.5-5.1) mmol/L Chloride (98-107) mmol/L Carbon Dioxide (22-30) mmol/L Anion Gap mmol/L BUN (7-17) mg/dL Creatinine (0.52-1.04) mg/dL Est GFR (CKD-EPI)AfAm (>60 ml/min/1.73 sqM) Est GFR (CKD-EPI)NonAf (>60 ml/min/1.73 sqM) Glucose (74-99) mg/dL Calcium (8.4-10.2) mg/dL Magnesium (1.6-2.3) mg/dL Total Bilirubin (0.2-1.3) mg/dL AST (14-36) U/L ALT (9-52) U/L Alkaline Phosphatase (38-126) U/L Creatine Kinase (30-135) U/L Troponin I <0.012 (0.000-0.034) ng/mL Total Protein (6.3-8.2) g/dL Albumin (3.5-5.0) g/dL - EKG Data -: EKG Interpreted by Me EKG shows normal: sinus rhythm (Sinus rhythm with PACs rate was 70. Interval 182 QRS duration 96 QT since QTC 422/435) - Radiology Data Radiology results: report reviewed (I did review the imaging and report bilateral popliteal vein DVTs additionally a left upper lobe), image reviewed Critical Care Time Critical Care Time: Yes Critical Care Time: 31 minutes of critical care time which includes initial presentation with history physical labs x-rays several reevaluation the patient discussed with patient and her regarding findings discussed with the admitting physician consultation the patient wears neck mentation the above Disposition Clinical Impression: Pulmonary embolism on left, DVT, bilateral lower limbs Disposition: ADMITTED IP TO THIS [facility] Condition: Fair Referrals: Robson Curtis DO [Primary Care Provider] - 1-2 days
[2019-08-19] MEDS ORDERED: HEPARIN SODIUM,PORCINE 5,000 UNIT/ML 1 ML VIAL IV PRN (13:29)
[2019-08-19] MEDS ORDERED: HEPARIN SODIUM,PORCINE 10,000 UNIT/ML 1 ML VIAL IV ONE (13:29)
[2019-08-19] MEDS ORDERED: NALOXONE 0.4 MG/ML 1 ML VIAL IV PRN (13:32)
[2019-08-19] MEDS ORDERED: ALBUTEROL NEBULIZED 2.5 MG/3 ML INHALATION PRN (13:36)
[2019-08-19] MEDS: HEPARIN SOD,PORK IN 0.45% NACL 25,000 UNIT in 0.45% NACL 1 250ML.BAG IV SCH (13:40)
[2019-08-19] MEDS ORDERED: SODIUM CHLORIDE 0.9% 1,000 ML IV SCH (13:45)
[2019-08-19] MEDS ORDERED: INFLUENZA VACCINE (6 MOS+) 60 MCG/0.5 ML SYRINGE IM ONE (15:17)
[2019-08-19] MEDS ORDERED: ALPRAZolam 0.25 MG TAB PO PRN (16:05)
[2019-08-19] MEDS ORDERED: diphenhydrAMINE 25 MG CAP PO PRN (16:05)
[2019-08-19] MEDS ORDERED: HYDROcodone/APAP 5-325MG 1 EACH TAB PO PRN (16:25)
[2019-08-19] MEDS: ACETAMINOPHEN TAB 325 MG TAB PO SCH (16:54)
[2019-08-19] MEDS: LACTOBACILLUS ACIDOPH & BULGAR 1 EACH PACKET PO SCH ×2 (16:54→20:22)
[2019-08-19] MEDS: ATORVASTATIN 20 MG TAB PO SCH ×2 (16:57→20:33)
--- NOTE | 2019-08-19 17:03 | CT ---
EXAMINATION TYPE: CT brain wo con DATE OF EXAM: 08/19/2019 COMPARISON: 10/03/2015 HISTORY: Headache. CT DLP: 1098.4 mGycm Automated exposure control for dose reduction was used. FINDINGS: Ventricles have normal size. There is no mass effect nor midline shift. There is no sign of intracran ial hemorrhage. The calvarium is intact. IMPRESSION: NEGATIVE CT SCAN OF THE BRAIN. NO CHANGE.
--- NOTE | 2019-08-19 18:38 | HP ---
HISTORY AND PHYSICAL CHIEF COMPLAINTS: Episode of palpitation, shortness of breath and as well as leg swelling. HISTORY OF PRESENT ILLNESS: This 73-year-old woman with a past medical history of multiple medical problems including GERD, history of hypertension, hyperlipidemia, history of DJD, history of sleep apnea, history of C difficile, history of breast surgery, adenoidectomy, being followed by Dr. Curtis in the outpatient setting, recently had a spinal fusion surgery at [facility]. The patient is recovering from the surgery, but 1 week ago, the patient had an episode of palpitation and tachycardia. Patient also had shortness of breath after that. The patient evaluated in outpatient setting by patient's own dairy manager in [facility] who recommended an ultrasound of the legs which showed bilateral veins. Patient came to [facility] and was admitted for further evaluation and treatment. D-dimer was elevated. CT angio of the chest showed evidence of left upper lobe subsegmental pulmonary embolism. Patient admitted to the hospital for further evaluation and treatment. IV heparin was initiated. There is no history of fever, rigors or chills. No history of headache, loss of consciousness or seizures. The patient reports that the patient was supposed to have at least 2 or 3 hours walking time, but the patient is only doing up to 1 according to her. There is no history of any fever, rigor or chills. No history of headache, loss of consciousness, seizures. PAST MEDICAL HISTORY: History of asthma, history of GERD, hypertension, hyperlipidemia, sleep apnea, history of the C difficile, history of pneumonia, history of DJD, spinal fusion. Hyperparathyroidism. MEDICATIONS: Prior to admission include: 1. Tylenol 650 q.6h p.r.n. 2. Benadryl 25 mg q.h.s. 3. Vitamin D2 50,000 q.7 days. 4. Astepro 274 mcg nasally b.i.d. 5. Probiotic 1 capsule t.i.d. 6. Albuterol 2.5 q.i.d. p.r.n. 7. Crestor 10 mg q.h.s. 8. Lyrica 50 mg p.o. b.i.d. 9. Singulair 10 mg q.h.s. 10.Cardizem 30 mg q.a.m. 11.Diltiazem 60 mg q.h.s. 12.Vitamin D3 5000 q.h.s. 13.Symbicort 80/4.5 two puffs b.i.d. 14.Baclofen 10 mg q.h.s. ALLERGIES: LEVAQUIN, VIMPAT, DAIRY, WHEAT AND PROCESSED FOODS. FAMILY HISTORY: History of hypertension, hyperlipidemia, history of ovarian cancer, history of breast cancer. SOCIAL HISTORY: No history of smoking. No history of alcohol. REVIEW OF SYSTEMS: ENT: No diminished vision. No diminished hearing. CARDIOVASCULAR: No angina or palpitations. RESPIRATORY: As mentioned earlier. GI no nausea or vomiting. no dysuria. NERVOUS SYSTEM: No numbness or weakness. ALLERGY/IMMUNOLOGY: No asthma or hayfever. MUSCULOSKELETAL as mentioned earlier. HEMATOLOGY/ONCOLOGY: No history of anemia. ENDOCRINE: No history of diabetes or hypothyroidism. CONSTITUTIONAL: As mentioned earlier. DERMATOLOGY: Negative. RHEUMATOLOGY negative. PSYCHIATRY as mentioned earlier. PHYSICAL EXAMINATION: Alert and oriented times three. Pulse 75. Blood pressure 155/97, respiration 18, temperature 97.4, pulse ox 98% on room air. HEENT: Conjunctivae normal. Oral mucosa moist. NECK is no jugular venous distention. No carotid bruit. No lymph node enlargement. Cardiovascular system: S1, S2. No S3, no S4. RESPIRATIONS: Breath sounds diminished in the bases. No rhonchi. No crackles. ABDOMEN: Soft, nontender. No mass palpable. LEGS: No edema. No swelling. NERVOUS SYSTEM: Higher functions as mentioned earlier. Moves all 4 limbs. No focal motor or sensory deficits. Lymphatics: No lymph nodes palpable in the neck, axillae or groin. SKIN: No ulcer, rashes or bleeding. JOINTS: No active deforming arthropathy. LEGS: Minimal bilateral pitting edema present. LABS: WBC 5.2, hemoglobin 12.2. D-dimer 4.03, calcium is 11. ASSESSMENT: 1. Acute bilateral leg deep vein thrombosis and acute pulmonary embolism. 2. Elevated D-dimer. 3. Hypercalcemia secondary to hyperparathyroidism. 4. History of asthma. 5. History of recent spinal fusion surgery for degenerative joint disease. 6. History of hypertension. 7. Hyperlipidemia. 8. History of pneumonia. 9. History of sleep apnea. 10.History of hypothyroidism. 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 12.History of irritable bowel syndrome. 13.History of adrenal insufficiency. 14.History of C difficile colitis. 15.FULL CODE. RECOMMENDATIONS AND DISCUSSION: This 73-year-old woman who presented with multiple complex medical issues, at this time, I recommend continue the current medications, management and symptomatic treatment. IV heparin was initiated. We will monitor the PT, INR closely. Closely follow with Dr. Curtis. Otherwise, the patient will be a candidate for one of the non- vitamin K anticoagulants. Otherwise, resume the home medications. Symptomatic treatment. I would also recommend a 2D echo with Doppler and further recommendations to follow. A copy of this dictation being forwarded to Dr. Curtis who is the primary physician. I would also recommend a CT scan of the brain which the patient is complaining of some vague headaches as well as tinnitus of the left ear also which might require outpatient followup. VALERIY / AIRAMN: [id number] / MTDD
[2019-08-19] MEDS: SYMBICORT 80-4.5 MCG INHALER INHALATION SCH (19:39)
[2019-08-19] MEDS: PREGABALIN 50 MG CAP PO SCH (20:31)
[2019-08-19] MEDS: CHOLECALCIFEROL 1,000 UNIT TAB PO SCH (20:31)
[2019-08-19] MEDS: DILTIAZEM ORAL 60 MG TAB PO SCH (20:31)
[2019-08-19] MEDS: BACLOFEN 10 MG TAB PO SCH (20:31)
[2019-08-19] MEDS: MONTELUKAST 10 MG TAB PO SCH (20:33)
[2019-08-19] MEDS: AZELASTINE 137MCG/SPRAY NASAL SCH (20:33)
[2019-08-19] MEDS: diphenhydrAMINE 25 MG CAP PO SCH (20:42)
[2019-08-20] MEDS: ACETAMINOPHEN TAB 325 MG TAB PO SCH ×4 (00:44→17:38)
[2019-08-20 03:43] LABS: Basophils % (A) 0 %; Eosinophils # (A) 0.2 k/uL (0-0.7); Eosinophils % (A) 3 %; HCT 34.2 % (34.0-46.0); HGB 11.4 gm/dL (11.4-16.0); Lymphocytes # (A) 2.5 k/uL (1.0-4.8); Lymphocytes % (A) 45 %; MCH 32.5 pg (25.0-35.0); MCHC 33.2 g/dL (31.0-37.0); MCV 97.8 fL (80.0-100.0); Mean Platelet Volume 5.8; Monocytes # (A) 0.4 k/uL (0-1.0); Monocytes % (A) 7 %; Neutrophils # (A) 2.3 k/uL (1.3-7.7); Neutrophils % (A) 42 %; Platelet Count 281 k/uL (150-450); RDW 12.5 % (11.5-15.5); WBC 5.7 k/uL (3.8-10.6)
[2019-08-20] MEDS: SYMBICORT 80-4.5 MCG INHALER INHALATION SCH ×2 (07:49→20:22)
[2019-08-20] MEDS: PREGABALIN 50 MG CAP PO SCH ×2 (08:45→21:58)
[2019-08-20] MEDS: DILTIAZEM ORAL 30 MG TAB PO SCH (08:45)
[2019-08-20] MEDS: AZELASTINE 137MCG/SPRAY NASAL SCH ×2 (08:48→21:59)
[2019-08-20] MEDS: HEPARIN SOD,PORK IN 0.45% NACL 25,000 UNIT in 0.45% NACL 1 250ML.BAG IV SCH ×2 (08:49→13:50)
[2019-08-20] MEDS: LACTOBACILLUS ACIDOPH & BULGAR 1 EACH PACKET PO SCH (09:06)
--- NOTE | 2019-08-20 11:34 | ECHOF ---
Referral Reason:chf MEASUREMENTS -------- HEIGHT: 165.1 cm WEIGHT: 78.0 kg BP: 131/71 IVSd: 0.9 cm (0.6 - 1.1) LVIDd: 4.2 cm (3.9 - 5.3) LVPWd: 1.1 cm (0.6 - 1.1) IVSs: 1.3 cm LVIDs: 3.1 cm LVPWs: 1.5 cm LA Diam: 3.0 cm (2.7 - 3.8) LAESV Index (A-L): 21.01 ml/m Ao Diam: 3.1 cm (2.0 - 3.7) AV Cusp: 1.7 cm (1.5 - 2.6) LA Diam: 3.0 cm (2.7 - 3.8) MV EXCURSION: 21.150 mm (> 18.000) MV EF SLOPE: 111 mm/s (70 - 150) EPSS: 0.3 cm MV E Mateo: 0.50 m/s MV DecT: 281 ms MV A Mateo: 0.81 m/s MV E/A Ratio: 0.63 RAP: 5.00 mmHg RVSP: 14.07 mmHg TAPSE: 23.60 mm FINDINGS -------- Sinus rhythm. This was a technically good study. LV size, wall thickness and systolic function are normal, with an EF greater than 55%. The left hemal tricular size is normal. The right ventricle is normal in size. The left atrial size is normal. The right atrial size is normal. The aortic valve is trileaflet, and appears structurally normal. No aortic stenosis or regurgitation. Mild mitral annular calcification present. Mild mitral regurgitation is present. Mild tricuspid regurgitation present. Right ventricular systolic pressure is normal at < 35 mmHg. There is no evidence of pulmonary hypertension. There is no pulmonic regurgitation present. The aortic root size is normal. There is no pericardial effusion. CONCLUSIONS -------- 1. Sinus rhythm. 2. This was a technically good study. 3. LV size, wall thickness and systolic function are normal, with an EF greater than 55%. 4. The left ventricular size is normal. 5. The right ventricle is normal in size. 6. The left atrial size is normal. 7. The right atrial size is normal. 8. The aortic valve is trileaflet, and appears structurally normal. No aortic stenosis or regurgitati on. 9. Mild mitral annular calcification present. 10. Mild mitral regurgitation is present. 11. Mild tricuspid regurgitation present. 12. Right ventricular systolic pressure is normal at < 35 mmHg. 13. There is no evidence of pulmonary hypertension. 14. There is no pulmonic regurgitation present. 15. The aortic root size is normal. 16. There is no pericardial effusion. CROSSING FLAGMAN: Patt Miner RDCS
--- NOTE | 2019-08-20 15:27 | CONS ---
CONSULTATION PULMONARY/CRITICAL CARE CONSULTATION: DATE OF CONSULTATION: 08/20/2019 This is a 73-year-old female with multiple medical problems, who apparently was seen by her weed inspector recently. She apparently was noted to have increasing leg swelling and some soreness in her legs. For that reason, a Doppler was ordered. The Dopplers were positive bilaterally for DVT. Anyway, the patient states that she also was noticing some intermittent shortness of breath. No chest pain, palpitations, or chest pressure. The patient apparently was seen in the emergency room on August 19, admitted with a diagnosis is bilateral DVT and pulmonary embolism. The patient is resting comfortably in bed. She is not on any supplemental oxygen. She is not having any complaints at this time. The patient recently had significant spinal surgery. She was in the hospital over at [place] for 19 days. She was inactive and sedentary during that entire time. Since she has been home, she has also been somewhat sedentary. She has been using a 4-legged walker with wheels to get around. Other than going to doctor's appointments, the patient really has not done very much. I suspect the trigger for her DVT and pulmonary embolism relates to her recent surgery as well as her inactivity. Again, the patient seems to be doing relatively well. I did explain to the patient because this was a provoked DVT, she probably could get away with 3 months of treatment. I may modify that. MEDICATIONS: Her home medications are reviewed. She is on Cardizem, Singulair, Symbicort, albuterol updrafts, baclofen, Cardizem, vitamin D3, Lyrica, Crestor, and probiotic. ALLERGIES: Include the LEVAQUIN, VIMPAT, MILK CONTAINING PRODUCTS, WHEAT and PROCESSED FOODS. MEDICAL HISTORY: Positive for chronic bronchial asthma, GERD, hyperlipidemia, hypertension, DJD, sleep apnea syndrome, adrenal insufficiency, hypothyroidism, chronic neck pain, chronic back pain, degenerative disc disease, bilateral cataracts, shingles, and C. difficile colitis. SURGICAL HISTORY: Includes adenoidectomy, breast surgery, heart catheterization, hysterectomy, joint replacement, tonsillectomy, parathyroidectomy, arthroscopy, epidural injections in the back, EGD, surgery for pyloric stenosis, pyloroplasty, colonoscopy, ventral hernia repair, bilateral breast reduction and abdominoplasty. Her most recent surgery was a spinal fusion in June at [facility]. SOCIAL HISTORY: Negative for tobacco use. No alcohol or illicit drug use. FAMILY HISTORY: Positive for father with CAD, hyperlipidemia, hypertension. He had a quadruple bypass in his 40s. Mother has a history of ovarian, breast cancer. Brother has a history of CAD with previous stents and a second brother with a bypass grafting. REVIEW OF SYSTEMS: CONSTITUTIONAL: Negative. NEUROLOGIC: Negative. HEENT: Negative. CARDIOVASCULAR: Negative. PULMONARY: Intermittent shortness of breath, more likely related to her asthma than PE. GI: Negative. : Negative. RHEUMATOLOGIC: Negative. IMMUNOLOGIC: Negative. ENDOCRINOLOGIC: Negative. DERMATOLOGIC: Negative. Her other major complaint was lower extremity edema and mild soreness. Current vital signs are reviewed, temperature is 98.5, heart rate 70, respiratory rate 18, blood pressure 129/71 mean 90, room air saturation 95%. Appears in no acute distress, whatsoever. No conversational dyspnea or use of accessory muscles. HEENT: Examination is grossly unremarkable. Mucous membranes moist. No oral lesions. NECK: Supple. Full range of motion. CARDIOVASCULAR: Examination reveals regular rhythm and rate. Heart rate 70. S1, S2 normal. No S3, S4, murmur. LUNGS: Reveal clear breath sounds. No wheezes, rhonchi, or crackles. Breath sounds equal bilaterally. ABDOMEN: Soft. Bowel sounds are heard. EXTREMITIES: Reveal very mild edema. No cyanosis or clubbing. SKIN: Without rash. NEUROLOGIC: Examination is brief but nonfocal. LABS: Reviewed. White count 5.7, hemoglobin 11.4, hematocrit 34.2, platelet count 381,000. Her D-dimer was 4.03. Her sodium and potassium were normal. Chloride is 108, CO2 is 27, anion gap is 7. BUN and creatinine were 9 and 0.5. Her stools for occult blood were negative. Calcium was 11. A CT scan of the chest was positive for a solitary segmental left upper lobe pulmonary embolism. Dopplers of the lower extremities were positive for bilateral popliteal DVT. Medications are reviewed. ASSESSMENT: 1. Bilateral lower extremity deep venous thromboses and left upper lobe pulmonary embolism. 2. Recent spinal surgery with prolonged hospitalization and significant inactivity/sedentary lifestyle, likely the risk factor for deep venous thrombosis and pulmonary embolism. 3. History of chronic bronchial asthma. 4. History of Clostridium difficile colitis. 5. History of pyloric stenosis. 6. History of gastroesophageal reflux disease. 7. History of hyperlipidemia. 8. History of hypertension. 9. Degenerative joint disease. 10.History of sleep apnea syndrome. 11.Adrenal insufficiency. 12.History of cataracts. 13.History of shingles. 14.Multiple surgical procedures including breast reduction surgery and abdominoplasty. PLAN: The patient could be started on a factor Xa inhibitor. I will see her in the office in followup. She should probably be treated for at least 3 months. She will need repeat Dopplers of the lower extremities as well as a repeat CT angiogram. Additional recommendations and suggestions are forthcoming. She can be started on a factor Xa inhibitor today. No additional recommendations are made. MMODL / IJN: [id number] /
[2019-08-20] MEDS: RIVAROXABAN 15 MG TAB PO SCH (17:33)
[2019-08-20] MEDS: BACLOFEN 10 MG TAB PO SCH (21:58)
[2019-08-20] MEDS: MONTELUKAST 10 MG TAB PO SCH (21:58)
[2019-08-20] MEDS: CHOLECALCIFEROL 1,000 UNIT TAB PO SCH (21:58)
[2019-08-20] MEDS: DILTIAZEM ORAL 60 MG TAB PO SCH (21:58)
[2019-08-20] MEDS: diphenhydrAMINE 25 MG CAP PO SCH (21:59)
[2019-08-21] MEDS: ACETAMINOPHEN TAB 325 MG TAB PO SCH ×2 (00:38→09:15)
[2019-08-21 06:19] LABS: Basophils % (A) 1 %; Eosinophils # (A) 0.1 k/uL (0-0.7); Eosinophils % (A) 3 %; HCT 34.7 % (34.0-46.0); HGB 11.5 gm/dL (11.4-16.0); Lymphocytes # (A) 2.1 k/uL (1.0-4.8); Lymphocytes % (A) 46 %; MCH 32.5 pg (25.0-35.0); MCHC 33.2 g/dL (31.0-37.0); MCV 97.9 fL (80.0-100.0); Mean Platelet Volume 5.7; Monocytes # (A) 0.4 k/uL (0-1.0); Monocytes % (A) 9 %; Neutrophils # (A) 1.8 k/uL (1.3-7.7); Neutrophils % (A) 39 %; Platelet Count 282 k/uL (150-450); RBC 3.54 m/uL (3.80-5.40); RDW 12.5 % (11.5-15.5); WBC 4.6 k/uL (3.8-10.6)
[2019-08-21] MEDS: SYMBICORT 80-4.5 MCG INHALER INHALATION SCH (08:42)
[2019-08-21] MEDS: RIVAROXABAN 15 MG TAB PO SCH (09:16)
[2019-08-21] MEDS: PREGABALIN 50 MG CAP PO SCH (09:16)
[2019-08-21] MEDS: DILTIAZEM ORAL 30 MG TAB PO SCH (09:16)
[2019-08-21] MEDS: AZELASTINE 137MCG/SPRAY NASAL SCH (09:17)
[2019-08-21 10:29] VITALS: RESP 18; TEMP 98.6
--- NOTE | 2019-08-21 12:16 | P.PN ---
Subjective Progress Note Date: 08/21/19 Principal diagnosis: PE/DVT Patient is seen today August 21 2019 in follow-up on the selective care unit. She is currently sitting up in a chair at the bedside. Awake and alert in no acute distress. She has been transitioned to Xarelto. She is maintaining O2 saturations in the upper 90s on room air. She's been afebrile. Hemodynamically stable. Objective - Vital Signs Vital signs: Vital Signs Temp 98.6 F 08/21/19 08:20 Pulse 75 08/21/19 08:20 Resp 18 08/21/19 08:20 BP 126/62 08/21/19 08:20 Pulse Ox 98 08/21/19 08:20 Intake & Output 08/20/19 08/21/19 08/21/19 18:59 06:59 18:59 Intake Total 917.033 240 250 Balance 917.033 240 250 Weight 78.1 kg Intake: Intake, IV Titration 77.033 Amount Heparin Sod,Pork in 0.45% 77.033 NaCl 25,000 unit In 0.45 % NaCl 1 250ml.bag @ 18 UNITS/KG/HR 13.88 mls/hr IV .Q18H1M [facility] Rx#: [id number] Oral 840 240 250 Other: Voiding Method Toilet # Voids 2 1 1 - Exam GENERAL EXAM: Alert, active, comfortable in no apparent distress. On room air. HEAD: Normocephalic. EYES: Normal reaction of pupils, equal size. NOSE: Clear with pink turbinates. THROAT: No erythema or exudates. NECK: No masses, no JVD. CHEST: No chest wall deformity. Back brace in place LUNGS: Equal air entry with no crackles, wheeze, rhonchi or dullness. CVS: S1 and S2 normal with no audible murmur, regular rhythm. ABDOMEN: No hepatosplenomegaly, normal bowel sounds, no guarding or rigidity. SPINE: No scoliosis or deformity SKIN: No rashes CENTRAL NERVOUS SYSTEM: No focal deficits, tone is normal in all 4 extremities. EXTREMITIES: There is no peripheral edema. No clubbing, no cyanosis. Peripheral pulses are intact. - Labs CBC & Chem 7: 08/21/19 05:40 08/19/19 10:12 Labs: Abnormal Lab Results - Last 24 Hours (Table) 08/21/19 Range/Units 05:40 RBC 3.54 L (3.80-5.40) m/uL Assessment and Plan Assessment: Impression: #1 Bilateral lower extremity DVT and a left upper lobe pulmonary embolism. #2 Recent spinal surgery with prolonged hospitalization and significant inactivity/sedentary lifestyle, likely the risk factor for the DVT and PE. #3 History of chronic bronchial asthma, currently inactive and stable. #4 Clostridium difficile colitis, history of. #5 History of pyloric stenosis. #6 History of esophageal reflux disease. #7 Hyperlipidemia. #8 Hypertension. #9 Degenerative joint disease. #10 History of sleep apnea. #11 Adrenal insufficiency. Plan: The patient was seen and evaluated by Dr. Curtis. She is stable from the pulmonary standpoint. She could be discharged home today on her Xarelto. Follow up with him in the office in 1-2 weeks' time. I, the cosigning physician, performed a history & physical examination of the patient. Lungs sounds are clear. Maintaining good O2 saturations in the 90s on room air. I discussed the assessment and plan of care with my nurse practitioner, Suzi Kolb. I attest to the above note as dictated by her.
[2019-08-21 13:42] VITALS: BP 137/63; PULSE 70
--- NOTE | 2019-08-21 17:38 | P.PN ---
Subjective Progress Note Date: 08/20/19 Principal diagnosis: Acute bilateral DVT and pulmonary embolism Patient is a 73-year-old female with a known history of hypertension, hyperlipidemia, sleep apnea, history of breast surgery, recent spinal fusion surgery at [facility] about a week ago came to ER with complaints of palpitations and tachycardia and shortness of breath. Patient was also having bilateral lower extremities swelling. Patient was found to have elevated d- dimer and CT angios the chest showed left upper lobe subsegmental pulmonary embolism. 08/20/2019 Currently patient denied any complaints of chest pain or shortness of breath. Leg swelling is much improved. Pain improved as well. Was continued on IV heparin changed to xarelto 15 mg twice daily No complaints of fever or chills. No nausea vomiting or diarrhea. FOBT negative. 2-D echo cardiac exam showed normal ejection fraction. No wall motion abnormalities noted. Current medications reviewed. Objective - Vital Signs Vital signs: Vital Signs Temp 98.5 F 08/20/19 08:30 Pulse 70 08/20/19 08:30 Resp 18 08/20/19 08:30 BP 129/71 08/20/19 08:30 Pulse Ox 95 08/20/19 08:30 Intake & Output 08/19/19 08/20/19 08/20/19 18:59 06:59 18:59 Intake Total 172.769 30.226 Output Total 1999 Balance -1999 172.769 30.226 Weight 77.111 kg 78.1 kg Intake: Intake, IV Titration 172.769 30.226 Amount Heparin Sod,Pork in 0.45% 172.769 30.226 NaCl 25,000 unit In 0.45 % NaCl 1 250ml.bag @ 18 UNITS/KG/HR 13.88 mls/hr IV .Q18H1M [facility] Rx#: [id number] Output: Urine 1999 Other: # Voids 2 # Bowel Movements 5 - Exam PHYSICAL EXAMINATION: Patient is lying in the bed comfortably, no acute distress, awake alert and mora ented.. HEENT: Normocephalic. Neck is supple. Pupils reactive. Nostrils clear. Oral cavity is moist. Ears reveal no drainage. Neck reveals no JVD, carotid bruits, or thyromegaly. CHEST EXAMINATION: Trachea is central. Symmetrical expansion. Lung reyes clear to auscultation and percussion. CARDIAC: Normal S1, S2 with no gallops. No murmurs ABDOMEN: Soft. Bowel sounds normal. No organomegaly. No abdominal bruits. Extremities: reveal no edema. Mild right calf tenderness. No clubbing or cya nosis Neurologically awake, alert, oriented x3 with well-coordinated movements. No focal deficits noted Skin: No rash or skin lesions. Psychiatric: Coperative. Nonsuicidal Musculoskeletal: No joint swelling or deformity. Normal range of motion. - Labs CBC & Chem 7: 08/21/19 05:40 08/19/19 10:12 Labs: Abnormal Lab Results - Last 24 Hours (Table) 08/19/19 08/20/19 08/20/19 Range/Units 19:47 03:22 03:22 RBC 3.50 L (3.80-5.40) m/uL APTT >200.0 H* 103.4 H* (22.0-30.0) sec 08/20/19 Range/Units 11:07 RBC (3.80-5.40) m/uL APTT 43.0 H (22.0-30.0) sec Assessment and Plan Assessment: Acute bilateral lower extremity DVT and left upper lobe subsegmental pulmonary embolism. Likely provoked Recent spinal surgery with prolonged hospitalization Asthma stable History of C. diff colitis History of pyloric stenosis GERD Hypertension Hyperlipidemia Recently joint disease History of obstructive sleep apnea Adrenal insufficiency Plan: Patient was continued on heparin drip and changed to xarelto today. Continue to monitor closely and continue the current management. Pulmonary is on board. Further conditions based on the clinical course. Anticipate discharge in next 24 hours. Xarelto Prescription was sent to pharmacy. Time with Patient: Greater than 30
[2019-08-24] MEDS ORDERED: ERGOCALCIFEROL 50,000 UNIT CAP PO SCH (09:00)
--- NOTE | 2019-08-26 15:42 | CDI ---
Documentation Clarification Form Date: 08/26/19 From: Sunitha Hwang Phone: If questions call Miri Rodriguez @ [phone], Hours-8:30 am & 5 pm M- F Admit Date: 08/19/2019 1:32:00 PM Patient Name: Odalys Thorpe Visit Number: [id number] Discharge Date: 08/21/2019 2:39:00 PM ATTENTION: The Clinical Documentation Specialists (CDI) and [facility] Coding Staff appreciate your assistance in clarifying documentation. Please respond to the clarification below the line at the bottom and electronically sign. The CDI & [facility] Coding staff will review the response and follow-up if needed. Please note: Queries are made part of the Legal Health Record. If you have any questions, please contact the author of this message via ITS. Dr. Michelle Bender Patient developed bilateral DVTs of legs and pulmonary embolism ss documented in the HP. Patient is status post recent spinal fusion at another hospital. She developed palpitation and tachycardia w SOB as on OP. US of legs showed bilateral DVT of the legs. She was admitted to showing D-dimer elevated and CT angio of chest showed evidence of LEIF subsegmental PE. Treatment: IV Heparin, Xarelto Consults: Pulm In order to accurately reflect this patients severity of illness, please clarify if bilateral leg DVTs and PE are the postop complications of the surgical procedure? Yes No Other, please specify Unable to determine yes MTDD
--- NOTE | 2019-08-31 21:34 | P.DS ---
Providers Date of admission: 08/19/19 13:32 Expected date of discharge: 08/21/19 Attending physician: Carlitos Billings Consults: 08/19/19 13:35 Consult Physician Urgent Consulting Provider: Robson Curtis Consult Reason/Comments: Pulmonary embolism Do you want consulting provider notified?: Already Contacted Primary care physician: Robson Curtis Hospital Course: Discharge diagnosis Acute bilateral lower extremity DVT and left upper lobe subsegmental pulmonary embolism. Likely provoked Recent spinal surgery with prolonged hospitalization Asthma stable History of C. diff colitis History of pyloric stenosis GERD Hypertension Hyperlipidemia Recently joint disease History of obstructive sleep apnea Adrenal insufficiency Hospital course Patient is a 73-year-old female with a known history of hypertension, hyperlipidemia, sleep apnea, history of breast surgery, recent spinal fusion surgery at [facility] about a week ago came to ER with complaints of palpitations and tachycardia and shortness of breath. Patient was also having bilateral lower extremities swelling. Patient was found to have elevated d- dimer and CT angios the chest showed left upper lobe subsegmental pulmonary embolism. 08/20/2019 Currently patient denied any complaints of chest pain or shortness of breath. Leg swelling is much improved. Pain improved as well. Was continued on IV heparin changed to xarelto 15 mg twice daily No complaints of fever or chills. No nausea vomiting or diarrhea. FOBT negative. 2-D echo cardiac exam showed normal ejection fraction. No wall motion abnormalities noted. Current medications reviewed. Plan: Patient was continued on heparin drip and changed to xarelto. PHYSICAL EXAMINATION: Patient is lying in the bed comfortably, no acute distress, awake alert and oriented.. HEENT: Normocephalic. Neck is supple. Pupils reactive. Nostrils clear. Oral cavity is moist. Ears reveal no drainage. Neck reveals no JVD, carotid bruits, or thyromegaly. CHEST EXAMINATION: Trachea is central. Symmetrical expansion. Lung reyes clear to auscultation and percussion. CARDIAC: Normal S1, S2 with no gallops. No murmurs ABDOMEN: Soft. Bowel sounds normal. No organomegaly. No abdominal bruits. Extremities: reveal no edema. No clubbing or cyanosis Neurologically awake, alert, oriented x3 with well-coordinated movements. No focal deficits noted Skin: No rash or skin lesions. Psychiatric: Coperative. Nonsuicidal Musculoskeletal: No joint swelling or deformity. Normal range of motion. Vital Signs Temp 98.6 F 08/21/19 08:20 Pulse 75 08/21/19 08:20 Resp 18 08/21/19 08:20 BP 126/62 08/21/19 08:20 Pulse Ox 98 08/21/19 08:20 Total time taken greater than 35 minutes including 18 minutes for counseling and coordination of care. Patient Condition at Discharge: Fair Plan - Discharge Summary Discharge Rx Participant: No New Discharge Prescriptions: New Rivaroxaban [Xarelto Starter Pack] 1 each PO DIRECTED #1 packet Continue Montelukast [Singulair] 10 mg PO HS Diltiazem Oral [Cardizem*] 30 mg PO QAM Budesonide/Formoterol Fumarate [Symbicort 80-4.5 Mcg Inhaler] 2 puff INHALATION RT-BID Diltiazem HCl 60 mg PO HS Baclofen 10 mg PO HS Albuterol Nebulized [Ventolin Nebulized] 2.5 mg INHALATION RT-QID PRN PRN Reason: Shortness Of Breath Rosuvastatin Calcium [Crestor] 10 mg PO HS Pregabalin [Lyrica] 50 mg PO BID Cholecalciferol [Vitamin D3 (25 Mcg = 1000 Iu)] 5,000 unit PO HS L.acidoph,Paracasei, B.lactis [Probiotic] 1 cap PO TID Azelastine HCl [Astepro] 274 mcg NASAL BID Acetaminophen Tab [Tylenol] 650 mg PO Q6H Ergocalciferol [Vitamin D2 (DRISDOL)] 50,000 unit PO Q7D diphenhydrAMINE [Benadryl] 25 mg PO HS Discharge Medication List Diltiazem Oral [Cardizem*] 30 mg PO QAM 04/13/15 [History] Montelukast [Singulair] 10 mg PO HS 04/13/15 [History] Budesonide/Formoterol Fumarate [Symbicort 80-4.5 Mcg Inhaler] 2 puff INHALATION RT-BID 03/13/16 [History] Albuterol Nebulized [Ventolin Nebulized] 2.5 mg INHALATION RT-QID PRN 06/25/17 [History] Baclofen 10 mg PO HS 06/25/17 [History] Diltiazem HCl 60 mg PO HS 06/25/17 [History] Cholecalciferol [Vitamin D3 (25 Mcg = 1000 Iu)] 5,000 unit PO HS 08/09/19 [H istory] Pregabalin [Lyrica] 50 mg PO BID 08/09/19 [History] Rosuvastatin Calcium [Crestor] 10 mg PO HS 08/09/19 [History] Acetaminophen Tab [Tylenol] 650 mg PO Q6H 08/19/19 [History] Azelastine HCl [Astepro] 274 mcg NASAL BID 08/19/19 [History] Ergocalciferol [Vitamin D2 (DRISDOL)] 50,000 unit PO Q7D 08/19/19 [History] L.acidoph,Paracasei, B.lactis [Probiotic] 1 cap PO TID 08/19/19 [History] diphenhydrAMINE [Benadryl] 25 mg PO HS 08/19/19 [History] Rivaroxaban [Xarelto Starter Pack] 1 each PO DIRECTED #1 packet 08/21/19 [Rx] Follow up Appointment(s)/Referral(s): Robson Curtis DO [Primary Care Provider] - 09/01/19 10:15 am (Please keep previous follow up appointment.) Patient Instructions/Handouts: Pulmonary Embolism (DC), Deep Vein Thrombosis (DC), Safe Use of Anticoagulants (DC) Activity/Diet/Wound Care/Special Instructions: Xarelto covered by insurance, copay is $40/month. Free day coupon to be mariana lied. Rx filled at [facility]. D/C RX patient. Discharge Disposition: HOME SELF-CARE
== END 2019-08-21 14:39 | disposition home or self-care (01) | DRG 300 ==
LOC: EC 08:28 → 3SCARD 13:32
PROVIDERS: ADMIT Hospitalist; ATTEND Hospitalist
DX: T81.718A Complication of other artery following a procedure, not elsewhere classified, initial encounter (principal); I97.89 Other postprocedural complications and disorders of the circulatory system, not elsewhere classified; I82.403 Acute embolism and thrombosis of unspecified deep veins of lower extremity, bilateral; E27.49 Other adrenocortical insufficiency; I26.93 Single subsegmental thrombotic pulmonary embolism without acute cor pulmonale; T81.72XA Complication of vein following a procedure, not elsewhere classified, initial encounter; Z23 Encounter for immunization; E89.2 Postprocedural hypoparathyroidism; J45.909 Unspecified asthma, uncomplicated; K21.9 Gastro-esophageal reflux disease without esophagitis; E03.9 Hypothyroidism, unspecified; E78.5 Hyperlipidemia, unspecified; I10 Essential (primary) hypertension; G47.33 Obstructive sleep apnea (adult) (pediatric); M19.90 Unspecified osteoarthritis, unspecified site; G89.29 Other chronic pain; M54.2 Cervicalgia; M54.9 Dorsalgia, unspecified; K58.9 Irritable bowel syndrome, unspecified; Z79.51 Long term (current) use of inhaled steroids; Z79.899 Other long term (current) drug therapy; Z86.19 Personal history of other infectious and parasitic diseases; Z87.01 Personal history of pneumonia (recurrent); Z98.890 Other specified postprocedural states; Z98.1 Arthrodesis status; Z90.710 Acquired absence of both cervix and uterus; Z98.42 Cataract extraction status, left eye; Z98.41 Cataract extraction status, right eye; Z96.1 Presence of intraocular lens; Z87.2 Personal history of diseases of the skin and subcutaneous tissue; Z88.1 Allergy status to other antibiotic agents; Z91.02 Food additives allergy status; Z91.011 Allergy to milk products; Z88.8 Allergy status to other drugs, medicaments and biological substances; Z91.018 Allergy to other foods; Z82.49 Family history of ischemic heart disease and other diseases of the circulatory system; Z80.3 Family history of malignant neoplasm of breast; Z80.41 Family history of malignant neoplasm of ovary; Z83.49 Family history of other endocrine, nutritional and metabolic diseases; Y83.4 Other reconstructive surgery as the cause of abnormal reaction of the patient, or of later complication, without mention of misadventure at the time of the procedure
CPT/HCPCS: 36415; 70450; 71275; 80053; 82272; 82550; 83735; 84484; 85025; 85379; 85610; 85730; 93005; 93306; 94640; 96365; 96376; 99285

== ENCOUNTER → 2019-08-19 | Outpatient (CLI) | payer MEDICARE ==
--- NOTE | 2019-08-19 08:08 | US ---
EXAMINATION TYPE: US venous doppler duplex LE BI DATE OF EXAM: 08/19/2019 7:41 AM COMPARISON: Left lower extremity venous ultrasound March 20, 2017. CLINICAL HISTORY: R60.0 EDEMA,R50.9 LOW GRADE FEVER. Edema and redness bilateral legs, worse on the r ight. Spinal fusion surgery 06/28 SIDE PERFORMED: bilateral TECHNIQUE: The lower extremity deep venous system is examined utilizing real time linear array sonog esteban with graded compression, doppler sonography and color-flow sonography. VESSELS IMAGED: External Iliac Vein (EIV) Common Femoral Vein Deep Femoral Vein Greater Saphenous Vein * Femoral Vein Popliteal Vein Small Saphenous Vein * Proximal Calf Veins (* superficial vessels) Right Leg: +Positive for DVT right popiteal vein Left Leg: +positive for DVT left popliteal vein Grayscale, color doppler, spectral doppler imaging performed of the deep veins of the bilateral lower extremities. There is normal flow, compressibility, vascular waveforms above the popliteal veins. IMPRESSION: Bilateral acute DVT involving the popliteal veins on current study. Ordering physician made aware of results by apparatus engineering technologist shortly after exam was completed.
== END | disposition home or self-care (01) ==
LOC: RADUSWWP 07:06
PROVIDERS: ATTEND Internal Medicine
DX: I82.433 Acute embolism and thrombosis of popliteal vein, bilateral (principal); R50.9 Fever, unspecified
CPT/HCPCS: 93970

== ENCOUNTER → 2019-09-14 | Outpatient (CLI) | payer MEDICARE ==
--- NOTE | 2019-09-14 09:22 | US ---
EXAMINATION TYPE: US venous doppler duplex LE DATE OF EXAM: 09/14/2019 8:56 AM COMPARISON: Prior ultrasound August 19, 2019 CLINICAL HISTORY: I82.453 DVT, R60.0 EDEMA BOTH LEGS. SIDE PERFORMED: Bilateral TECHNIQUE: The lower extremity deep venous system is examined utilizing real time linear array sonog esteban with graded compression, doppler sonography and color-flow sonography. VESSELS IMAGED: External Iliac Vein (EIV) Common Femoral Vein Deep Femoral Vein Greater Saphenous Vein * Femoral Vein Popliteal Vein Small Saphenous Vein * Proximal Calf Veins (* superficial vessels) Right Leg: Positive for DVT right popliteal vein Left Leg: Negative for DVT Bakers cyst measuring 5.1 x 1.2 x 1.9cm Grayscale, color doppler, spectral doppler imaging performed of the deep veins of the bilateral lower extremities. There is normal flow, compressibility, vascular waveforms about the popliteal vein lev el bilaterally. IMPRESSION: Interval resolution of acute DVT left lower extremity. Persistent occlusive thrombus rig ht popliteal vein level noted.
== END | disposition home or self-care (01) ==
LOC: RADUSWWP 08:12
PROVIDERS: ATTEND Internal Medicine
DX: I82.431 Acute embolism and thrombosis of right popliteal vein (principal); I26.99 Other pulmonary embolism without acute cor pulmonale; R00.2 Palpitations; R60.0 Localized edema
CPT/HCPCS: 93970

== ENCOUNTER → 2019-09-21 | Outpatient (CLI) | payer MEDICARE ==
--- NOTE | 2019-09-22 08:30 | NM ---
EXAMINATION TYPE: NM parathyroid w/spect DATE OF EXAM: 09/21/2019 COMPARISON: NONE HISTORY: Hyperparathyroidism TECHNIQUE: Following administration of 25.1 mCi Tc99m Sestamibi. Anterior projection images of the neck and ches t were obtained 10 minutes and 3 hours post injection. SPECT images of the neck and chest were obtai nilda and reconstructed in three axes. FINDINGS: Thyroid tracer washout: Delayed images demonstrate near-complete tracer washout from the thyroid. Parathyroid uptake: None. The two-hour delayed images do not demonstrate any focal abnormal persisten t uptake in the region of the parathyroid glands to suggest parathyroid adenoma. Normal uptake: There is physiological tracer uptake in the myocardium, liver, salivary glands, and th yroid gland. IMPRESSION: Normal parathyroid imaging study. No evidence for mediastinal uptake to suggest mediastinal parathyro id adenoma
== END | disposition home or self-care (01) ==
LOC: RADNMMAIN 11:25
PROVIDERS: ATTEND Internal Medicine Critical Care Medicine
DX: E21.3 Hyperparathyroidism, unspecified (principal)
CPT/HCPCS: 78071; A9500

== ENCOUNTER → 2019-09-30 | Outpatient (CLI) | payer MEDICARE ==
[2019-09-30 18:06] LABS: African American GFR (CKD) 106.3 (60.0-200.0); BUN/Creat Ratio 16.67 Ratio (12.00-20.00); Calcium 9.8 mg/dL (8.7-10.3); Non-African American GFR(CKD) 91.7 (60.0-200.0); Potassium 4.1 mmol/L (3.5-5.5)
== END | disposition home or self-care (01) ==
LOC: LABWHC1 08:26
PROVIDERS: ATTEND Internal Medicine
DX: E27.40 Unspecified adrenocortical insufficiency (principal); E83.52 Hypercalcemia
CPT/HCPCS: 36415; 80048; 82024; 82533; 83970

== ENCOUNTER → 2019-10-28 | Outpatient (CLI) | payer MEDICARE ==
[~2019-10-28] MED LIST changes: -BUPIVACAINE (PF) 0.75% 5 ML, HYALURONIDASE, HUMAN RECOMB 150 UNIT, LIDOCAINE 2% (PF) 10... MISCELLANE ONE; -CYCLOPENTOLATE 1% OPHTH SOLN 2 ML BTL OP ONE; -FLURBIPROFEN 0.03% OPHTH DROPS 2.5 ML BTL OP ONE; -GENTAMICIN/PREDNISOL AC OPHTH OINT 3.5GM OPHTHALMIC ONE; -LACTATED RINGERS 1,000 ML IV SCH; -LIDOCAINE 1% 20 ML VIAL (10MG/ML) FOR IV START INTRADERMA PRN; -MIDAZOLAM 2 MG/2 ML VIAL IV PRN; -PHENYLEPHRINE 10% OPHTH DROPS 5 ML BTL OP ONE; +SODIUM CHLORIDE 0.9% 500 ML 500 ML in EMPTY BAG 1 BAG IV PRN; -TIMOLOL 0.5% OPHTH DROPS 5 ML BTL OP ONE; +ZOLEDRONIC ACID 5 MG in SODIUM CHLORIDE 0.9% 100 ML IV NR
[2019-10-28 12:49] VITALS: BP 154/80; PULSE 71; RESP 18; TEMP 98
== END | disposition home or self-care (01) ==
LOC: PROCWHC3 12:20
PROVIDERS: ATTEND Internal Medicine
DX: M81.0 Age-related osteoporosis without current pathological fracture (principal)
CPT/HCPCS: 96365; J3489

== ENCOUNTER → 2019-11-12 | Outpatient (CLI) | payer MEDICARE ==
[2019-11-12 12:34] LABS: African American GFR (CKD) >90 (>60 ml/min/1.73 sqM); Blood Urea Nitrogen 12 mg/dL (7-17); Non-African American GFR(CKD) >90 (>60 ml/min/1.73 sqM)
--- NOTE | 2019-11-12 13:29 | US ---
EXAMINATION TYPE: US venous doppler duplex LE BI DATE OF EXAM: 11/12/2019 1:08 PM COMPARISON: NONE CLINICAL HISTORY: 74-year-old female I82.409 ACUTE EMBOLISMS DEEP VEIN LOWER EXT. SIDE PERFORMED: Bilateral TECHNIQUE: The lower extremity deep venous system is examined utilizing real time linear array sonog esteban with graded compression, doppler sonography and color-flow sonography. FINDINGS: VESSELS IMAGED: External Iliac Vein (EIV) Common Femoral Vein Deep Femoral Vein Greater Saphenous Vein * Femoral Vein Popliteal Vein Small Saphenous Vein * Proximal Calf Veins (* superficial vessels) Right Leg: Improvement of right popliteal vein DVT, there is flow seen in popliteal vein, the color flow is narrowed compatible with nonocclusive, mural based thrombus. Left Leg: Negative for DVT There is a small to moderate-sized 4.3 x 3.8 x 1.1 cm Mccray's cyst noted on the left. IMPRESSION: 1. No evidence for DVT within the left lower extremity imaged from the groin to the upper calf. 2. On the right, there is been improvement with partial clearance of his popliteal DVT. Now, residual , nonocclusive chronic DVT remains.
--- NOTE | 2019-11-12 14:23 | CT ---
CT CHEST FOR PULMONARY EMBOLISM. EXAMINATION TYPE: CT angio chest DATE OF EXAM: 11/12/2019 INDICATION: History of PE 10-19. CT DLP: 260.4 mGycm, Automated exposure control for dose reduction was used. CONTRAST: Patient injected with 100 mL of Isovue 370. COMPARISON: 08/19/2019 TECHNIQUE: CT of the chest is performed on a spiral scan at 2 mm thick sections. Study is performed with intravenous contrast timed for evaluation for pulmonary embolism. This will limit additional po rtions of the evaluation. 3-D MIP images reconstructed by the technologist are reviewed on the compu ter in the coronal and sagittal planes. FINDINGS: No persistent filling defects are evident to suggest an acute pulmonary embolism. No mediastinal or hilar adenopathy enlarged by CT criteria is evident. The ascending aorta diameter at the level of the main pulmonary artery is 3.2 cm. The main pulmonary artery diameter at the bifur cation is 2.1 cm. No right heart strain is evident. Lung windows are clear. Limited CT section through the upper abdomen are unremarkable. IMPRESSIONS: 1. No acute pulmonary embolism. 2. Previous left upper lobe pulmonary embolism is not identified on the current study.
== END | disposition home or self-care (01) ==
LOC: RADUSWWP 12:01
PROVIDERS: ATTEND Internal Medicine Critical Care Medicine
DX: I82.501 Chronic embolism and thrombosis of unspecified deep veins of right lower extremity (principal); I82.91 Chronic embolism and thrombosis of unspecified vein; I82.409 Acute embolism and thrombosis of unspecified deep veins of unspecified lower extremity; Z88.1 Allergy status to other antibiotic agents
CPT/HCPCS: 82565; 84520; 93970; 71275; 36415; Q9967

== ENCOUNTER → 2019-11-26 | Outpatient (CLI) | payer MEDICARE ==
[2019-11-26 17:52] LABS: African American GFR (CKD) 105.5 (60.0-200.0); Albumin 4.3 g/dL (3.80-4.90); Albumin/Globulin Ratio 2.39 (1.60-3.17); Anion Gap 10.1 mmol/L (4.00-12.00); BUN/Creat Ratio 18.33 Ratio (12.00-20.00); Calcium 9.4 mg/dL (8.7-10.3); Carbon Dioxide 24.9 mmol/L (21.6-31.8); Chol/HDL Ratio 2.32; Globulin 1.8 g/dL (1.6-3.3); LDL Cholesterol,Calculated 72.4 mg/dL (0.0-131.0); Non-African American GFR(CKD) 91.1 (60.0-200.0); Potassium 4.1 mmol/L (3.5-5.5); Total Bilirubin 0.6 mg/dL (0.3-1.2); Total Protein 6.1 g/dL (6.2-8.2); VLDL Calculation 14.6 mg/dL (5.00-40.00)
== END | disposition home or self-care (01) ==
LOC: LABWHC1 07:37
PROVIDERS: ATTEND Internal Medicine
DX: E21.0 Primary hyperparathyroidism (principal); M81.0 Age-related osteoporosis without current pathological fracture; E55.9 Vitamin D deficiency, unspecified; E78.5 Hyperlipidemia, unspecified; E27.40 Unspecified adrenocortical insufficiency
CPT/HCPCS: 36415; 80053; 80061; 82024; 82306; 82533; 83970; 84681

== ENCOUNTER → 2019-12-24 | Outpatient (CLI) | payer MEDICARE ==
--- NOTE | 2019-12-24 14:43 | US ---
EXAMINATION TYPE: US thyroid st tissue head/neck DATE OF EXAM: 12/24/2019 COMPARISON: US 02/29/2016 CLINICAL HISTORY: E04.1 THYROID NODULE. F/U nodules GLAND SIZE: Right Lobe: 4.5 x 1.1 x 1.4 cm Overall Parenchyma: homogenous Left Lobe: 4.5 x 1.1 x 1.3 cm Overall Parenchyma: homogeneous Isthmus Thickness: 0.2 cm NODULES RIGHT: # of nodules measured on right: 1 1. 0.6 X 0.3 x 0.5 cm hypoechoic mixed nodule at the lower pole with well-defined margins;This nodu le is wider than tall and shows intranodular vascularity. Prior size: 0.6 x 0.3 x 0.5 cm LEFT: # of nodules measured on left: 1 1. 0.9 X 0.7 x 0.8 cm hypoechoic solid nodule at the mid pole with well-defined margins;This nodule is wider than tall and shows intranodular vascularity. Prior size: 1.0 x 0.6 x 0.7 cm Bilateral neck scanned, no evidence of lymphadenopathy. Stable sub-centimeter nodules bilaterally. IMPRESSION: Small bilateral thyroid nodules, less than 1 cm at this time. No significant change from the prior.
== END | disposition home or self-care (01) ==
LOC: RADUSWWP 13:20
PROVIDERS: ATTEND Allergy & Immunology
DX: E04.2 Nontoxic multinodular goiter (principal)
CPT/HCPCS: 76536

== ENCOUNTER → 2019-12-24 | Outpatient (CLI) | payer MEDICARE ==
--- NOTE | 2019-12-24 14:29 | US ---
EXAMINATION TYPE: US venous doppler duplex LE RT DATE OF EXAM: 12/24/2019 1:55 PM COMPARISON: US 11/12/2019 CLINICAL HISTORY: right leg dvt I82.409. F/U previous DVT right leg SIDE PERFORMED: Right TECHNIQUE: The lower extremity deep venous system is examined utilizing real time linear array sonog esteban with graded compression, doppler sonography and color-flow sonography. VESSELS IMAGED: External Iliac Vein (EIV) Common Femoral Vein Deep Femoral Vein Greater Saphenous Vein * Femoral Vein Popliteal Vein Small Saphenous Vein * Proximal Calf Veins (* superficial vessels) Right Leg: Negative for acute DVT, thrombus within right popliteal vein shows improvement with angelique r blood flow and compressibility IMPRESSION: Improved blood flow and compressibility of the popliteal vein in comparison to prior 11/12 with small eccentric chronic deep venous thrombosis focally in the popliteal vein. No acute de ep venous thrombosis.
== END | disposition home or self-care (01) ==
LOC: RADUSWWP 13:23
PROVIDERS: ATTEND Internal Medicine Critical Care Medicine
DX: I82.401 Acute embolism and thrombosis of unspecified deep veins of right lower extremity (principal)

== ENCOUNTER → 2020-03-27 | Outpatient (CLI) | payer MEDICARE ==
--- NOTE | 2020-03-27 15:50 | MR ---
EXAMINATION TYPE: MR lumbar spine wo con DATE OF EXAM: 03/27/2020 COMPARISON: Prior MRI lumbar spine October 17, [address] abdomen May 14, 2017 HISTORY: Pressure, Numbness and Pain on the Rt Side of lower back into Front of thighs. Limited Mobil ity. Spinal stenosis status post arthrodesis and other biomechanical lesions all per order. TECHNIQUE: Multiplanar, multisequence imaging of the lumbar spine is performed without IV contrast. FINDINGS: There is redemonstration of right lateral positioning L4 on L3. Sagittal images redemonstra te straightening of lumbar spine. Interval surgery with artifact from posterior interpedicular rods a nd screws at L4 and L5 levels bilaterally. Alignment stable at this level. Multilevel disc desiccatio n redemonstrated. Mild to moderate disc space narrowing L2-L3 through L4-L5 levels again seen. The co nus medullaris remains stable in position and signal ending mid T12 level. Mild to moderate multileve l anterior spurring with heterogeneous Modic type II endplate changes for reference anterior L2-L3 le savita. Axial images show the T12-L1 and L1-L2 levels to remain within normal limits. Axial images at L2-L3 level redemonstrate mild to moderate broad disc bulge minimally effacing anteri or thecal sac and causing mild left-sided anterior inferior neural foraminal narrowing. Right-sided n eural foramen is patent. No significant change from prior MRI. Axial images at L3-L4 level show artifact from posterior fusion hardware. There is moderate broad-bas ed posterior disc protrusion redemonstrated more prominent from prior study with mild to moderate fac et arthropathy and ligament flavum hypertrophy. There is effacement the anterior and the posterior la teral thecal sac. There is mild right greater than left bilateral anterior inferior neural foraminal narrowing. Axial images at L4-L5 level show moderate facet degenerative changes bilaterally slightly effacing po sterior lateral thecal sac. There is successful posterior decompression. Artifact from posterior fusi on hardware. There is new left paracentral/foraminal disc protrusion axial image 11 of effacing anter olateral thecal sac and causing fairly moderate left-sided neural foraminal narrowing. Right-sided ne ural foramen is patent. Axial images at L5-S1 level shows broad disc bulge with central disc protrusion component mildly effa cing anterior thecal sac with moderate facet degenerative changes bilaterally. Progression from prior MRI noted. Bilateral neural foramina are felt patent. Several simple-appearing thin-walled cysts are thought present scattered throughout both kidneys. Par aspinal muscle bulk preserved. IMPRESSION: Interval L4-L5 surgery with stable alignment. Multilevel degenerative changes as detailed above with progression in degenerative findings from prior MRI noted at L3-L4 and L5-S1 levels.
== END | disposition home or self-care (01) ==
LOC: RADMRIMAIN 14:37
PROVIDERS: ATTEND Specialist
DX: M48.062 Spinal stenosis, lumbar region with neurogenic claudication (principal); M99.83 Other biomechanical lesions of lumbar region; Z98.1 Arthrodesis status
CPT/HCPCS: 72148

== ENCOUNTER → 2020-03-28 | Outpatient (CLI) | payer MEDICARE ==
--- NOTE | 2020-03-28 16:12 | US ---
LOWER EXTREMITY VENOUS INSUFFICIENCY CLINICAL HISTORY: M25.472,I82.501 DVT EDEMA. Swelling bilateral ankles SIDE PERFORMED: Bilateral 1) Color flow is present and patency is documented in the following vessels. No DVT or SVT is noted . EIV Common Femoral Vein Deep Femoral Vein Femoral Vein Popliteal Vein Proximal Calf Veins Greater Saph Vein Upper Small Saph Vein 2) There is venous reflux noted at the following venous levels: No reflux noted IMPRESSION: 1. Bilateral lower extremity ultrasound without evidence of venous reflux.
== END | disposition home or self-care (01) ==
LOC: RADUSMAIN 15:06
PROVIDERS: ATTEND Internal Medicine
DX: I82.501 Chronic embolism and thrombosis of unspecified deep veins of right lower extremity (principal); M25.472 Effusion, left ankle
CPT/HCPCS: 93970

== ENCOUNTER → 2020-04-05 | Outpatient (CLI) | payer MEDICARE ==
[2020-04-05 15:51] LABS: African American GFR (CKD) 105.5 (60.0-200.0); Albumin/Globulin Ratio 1.82 (1.60-3.17); Anion Gap 7.7 mmol/L (4.00-12.00); BUN/Creat Ratio 16.67 Ratio (12.00-20.00); Calcium 9.9 mg/dL (8.7-10.3); Carbon Dioxide 29.3 mmol/L (21.6-31.8); Globulin 2.2 g/dL (1.6-3.3); Non-African American GFR(CKD) 91.1 (60.0-200.0); Phosphorus 3.3 mg/dL (2.4-5.1); Potassium 4.2 mmol/L (3.5-5.5); Total Bilirubin 0.7 mg/dL (0.3-1.2); Total Protein 6.2 g/dL (6.2-8.2)
== END | disposition home or self-care (01) ==
LOC: LABWHC1 08:13
PROVIDERS: ATTEND Internal Medicine
DX: E21.0 Primary hyperparathyroidism (principal); E27.40 Unspecified adrenocortical insufficiency
CPT/HCPCS: 36415; 80053; 82533; 83970; 84100

== ENCOUNTER 2020-04-28 12:04 | Emergency (ER) | payer MEDICARE ==
[2020-04-28 12:12] VITALS: RESP 18
[2020-04-28] MEDS ORDERED: ONDANSETRON 4 MG/2 ML VIAL IVP STA (12:34)
[2020-04-28] MEDS ORDERED: SODIUM CHLORIDE 0.9% 1,000 ML IV STA (12:34)
[2020-04-28] MEDS ORDERED: IBUPROFEN 600 MG TAB PO STA ×2 (12:35→13:56)
[2020-04-28] MEDS ORDERED: ACETAMINOPHEN TAB 500 MG TAB PO STA (12:36)
--- NOTE | 2020-04-28 13:11 | ED ---
General Adult HPI - General Chief complaint: Nausea/Vomiting/Diarrhea Stated complaint: fever, nausea/vomiting Time Seen by Provider: 04/28/20 12:10 Source: patient, RN notes reviewed, old records reviewed Mode of arrival: wheelchair Limitations: no limitations - History of Present Illness Initial comments: This is a 74-year-old female who presents emergency department claiming that she hasn't been feeling good for the last 3-4 days and today she woke up with a low- grade fever 100.5. Patient states she also vomited in quite a bit of loose stools. Patient denies any abdominal pain she states she occasionally she's had some cramping but no pain. Patient denies chest pain difficulty breathing or cough per patient denies any lightheadedness or dizziness. Patient states he does have some minor headache. Patient denies numbness weakness. Patient denies any blood in the stool or in the emesis. - Related Data Home Medications Medication Instructions Recorded Confirmed Diltiazem Oral [Cardizem*] 15 mg PO QAM 04/13/15 04/28/20 Montelukast [Singulair] 10 mg PO HS 04/13/15 04/28/20 Baclofen 10 mg PO HS 06/25/17 04/28/20 Rosuvastatin Calcium [Crestor] 10 mg PO HS 08/09/19 04/28/20 Azelastine HCl [Astepro] 2 spray EA NOSTRIL BID 08/19/19 04/28/20 Ergocalciferol [Vitamin D2 50,000 unit PO TU 08/19/19 04/28/20 (DRISDOL)] Acetaminophen [Tylenol Arthritis] 650 mg PO Q12H PRN 04/28/20 04/28/20 Acetaminophen/Diphenhydramine 1 tab PO DAILY PRN 04/28/20 04/28/20 [Tylenol PM 500-25mg] Aspirin EC [Ecotrin Low Dose] 81 mg PO HS 04/28/20 04/28/20 Budesonide/Formoterol Fumarate 2 puff INHALATION RT-BID 04/28/20 04/28/20 [Symbicort 160-4.5 Mcg Inhaler] Cetirizine HCl [Zyrtec] 10 mg PO DAILY PRN 04/28/20 04/28/20 Diltiazem HCl 15 mg PO BID@0800,1200 04/28/20 04/28/20 Diltiazem HCl 60 mg PO HS 04/28/20 04/28/20 Multivitamins, Thera [Multivitamin 1 tab PO DAILY 04/28/20 04/28/20 (formulary)] Olopatadine HCl [Pataday] 1 drop BOTH EYES DAILY 04/28/20 04/28/20 Omeprazole 20 mg PO DAILY 04/28/20 04/28/20 Pregabalin [Lyrica] 25 mg PO DAILY 04/28/20 04/28/20 Pregabalin [Lyrica] 50 mg PO HS 04/28/20 04/28/20 Allergies Allergy/AdvReac Type Severity Reaction Status Date / Time levofloxacin [From Levaquin] Allergy Rash/Hives Verified 04/28/20 12:56 lacosamide [From Vimpat] AdvReac Confusion Verified 04/28/20 12:56 Milk Containing Products AdvReac avoids Verified 04/28/20 12:56 [Dairy] dairy products wheat AdvReac avoids Verified 04/28/20 12:56 wheat products processed foods AdvReac avoids Uncoded 04/28/20 12:12 processed foods Review of Systems ROS Statement: Those systems with pertinent positive or pertinent negative responses have been documented in the HPI. ROS Other: All systems not noted in ROS Statement are negative. 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 History of Any Multi-Drug Resistant Organisms: C-DIFF Date of last positivie culture/infection: 2018-march MDRO Source:: stool Past Surgical History: Adenoidectomy, Breast Surgery, Heart Catheterization, Hysterectomy, Joint Replacement, Orthopedic Surgery, Tonsillectomy Additional Past Surgical History / Comment(s): Spinal fusion-recent/laminectomy, epidural back injections, L knee arthroscopy, L shoulder arthroscopy for rotator cuff/bone spurs, EGDs/dilatations for pyloric stenosis, pyloroplasty d/t ulcer, esophageal manometry, colonoscopy, bladder cystogram, ventral hernia, L breast benign bx, bilateral breast reductions, abdominoplasty, bilateral cataract removals/lens implants. Past Anesthesia/Blood Transfusion Reactions: No Reported Reaction Additional Past Anesthesia/Blood Transfusion Reaction / Comment(s): takes a little while to wake up.no hx blood transfusion. Past Psychological History: No Psychological Hx Reported Smoking Status: Never smoker Past Alcohol Use History: Rare Past Drug Use History: None Reported - Past Family History Brother(s) Family Medical History: Coronary Artery Disease (CAD) Additional Family Medical History / Comment(s): heart stents,2nd brother CABG Mother Family Medical History: Cancer, Hyperlipidemia, Hypertension Additional Family Medical History / Comment(s): Mother of ovarian cancer at the age of 69yrs. She also had breast cancer Father Family Medical History: Coronary Artery Disease (CAD), Hyperlipidemia, Hypertension Additional Family Medical History / Comment(s): quad bypass in his 40's General Exam - General Exam Comments Initial Comments: GENERAL: Patient is well-developed and well-nourished. Patient is nontoxic and well-h ydrated and is in mildl distress. ENT: Neck is soft and supple. No significant lymphadenopathy is noted. Oropharynx is clear. Moist mucous membranes. Neck has full range of motion without eliciting any pain. EYES: The sclera were anicteric and conjunctiva were pink and moist. Extraocular mo vements were intact and pupils were equal round and reactive to light. Eyelids were unremarkable. PULMONARY: Unlabored respirations. Good breath sounds bilaterally. No audible rales rhonchi or wheezing was noted. CARDIOVASCULAR: There is a regular rate and rhythm without any murmurs gallops or rubs. ABDOMEN: Soft and nontender with normal bowel sounds. SKIN: Skin is clear with no lesions or rashes and otherwise unremarkable. NEUROLOGIC: Patient is alert and oriented x3. Cranial nerves II through XII are grossly intact. Motor and sensory are also intact. Normal speech, volume and content. Symmetrical smile. MUSCULOSKELETAL: Normal extremities with adequate strength and full range of motion. LYMPHATICS: No significant lymphadenopathy is noted PSYCHIATRIC: Normal psychiatric evaluation. Limitations: no limitations Course Vital Signs 04/28/20 12:09 Temperature 99.3 F Pulse Rate 104 H Respiratory 18 Rate Blood Pressure 122/67 O2 Sat by Pulse 98 Oximetry Medical Decision Making - Medical Decision Making I EKG showed normal sinus rhythm at 89 bpm AZ interval 260 QRS is 94 QT interval 376 QTC is 457. Patient's EKG shows no ST segment elevation or depression. Patient received a liter of water and some Zofran. Patient also received Motrin for fever. I went back into the room to reevaluate the patient she was feeling considerably better and she was no longer nauseated. Patient felt good enough to go home. - Lab Data Result diagrams: 04/28/20 12:52 04/28/20 12:52 Lab Results 04/28/20 04/28/20 04/28/20 Range/Units 12:52 12:52 12:52 WBC 11.6 H (3.8-10.6) k/uL RBC 4.13 (3.80-5.40) m/uL Hgb 13.0 (11.4-16.0) gm/dL Hct 40.4 (34.0-46.0) % MCV 97.7 (80.0-100.0) fL MCH 31.4 (25.0-35.0) pg MCHC 32.1 (31.0-37.0) g/dL RDW 12.4 (11.5-15.5) % Plt Count 319 (150-450) k/uL Neutrophils % 85 % Lymphocytes % 6 % Monocytes % 6 % Eosinophils % 2 % Basophils % 0 % Neutrophils # 9.8 H (1.3-7.7) k/uL Lymphocytes # 0.7 L (1.0-4.8) k/uL Monocytes # 0.7 (0-1.0) k/uL Eosinophils # 0.2 (0-0.7) k/uL Basophils # 0.0 (0-0.2) k/uL Sodium 139 (137-145) mmol/L Potassium 3.6 (3.5-5.1) mmol/L Chloride 105 (98-107) mmol/L Carbon Dioxide 29 (22-30) mmol/L Anion Gap 5 mmol/L BUN 17 (7-17) mg/dL Creatinine 0.53 (0.52-1.04) mg/dL Est GFR (CKD-EPI)AfAm >90 (>60 ml/min/1.73 sqM) Est GFR (CKD-EPI)NonAf >90 (>60 ml/min/1.73 sqM) Glucose 130 H (74-99) mg/dL Plasma Lactic Acid Walter 1.2 (0.7-2.0) mmol/L Calcium 9.4 (8.4-10.2) mg/dL Total Bilirubin 0.9 (0.2-1.3) mg/dL AST 22 (14-36) U/L ALT 19 (4-34) U/L Alkaline Phosphatase 49 (38-126) U/L Total Protein 6.4 (6.3-8.2) g/dL Albumin 3.6 (3.5-5.0) g/dL Amylase 55 (30-110) U/L Lipase 56 (23-300) U/L Urine Color Urine Appearance (Clear) Urine pH (5.0-8.0) Ur Specific Eva (1.001-1.035) Urine Protein (Negative) Urine Glucose (UA) (Negative) Urine Ketones (Negative) Urine Blood (Negative) Urine Nitrite (Negative) Urine Bilirubin (Negative) Urine Urobilinogen (<2.0) mg/dL Ur Leukocyte Esterase (Negative) Urine RBC (0-5) /hpf Urine WBC (0-5) /hpf Ur Squamous Epith Cells (0-4) /hpf Urine Bacteria (None) /hpf 04/28/20 Range/Units 13:51 WBC (3.8-10.6) k/uL RBC (3.80-5.40) m/uL Hgb (11.4-16.0) gm/dL Hct (34.0-46.0) % MCV (80.0-100.0) fL MCH (25.0-35.0) pg MCHC (31.0-37.0) g/dL RDW (11.5-15.5) % Plt Count (150-450) k/uL Neutrophils % % Lymphocytes % % Monocytes % % Eosinophils % % Basophils % % Neutrophils # (1.3-7.7) k/uL Lymphocytes # (1.0-4.8) k/uL Monocytes # (0-1.0) k/uL Eosinophils # (0-0.7) k/uL Basophils # (0-0.2) k/uL Sodium (137-145) mmol/L Potassium (3.5-5.1) mmol/L Chloride (98-107) mmol/L Carbon Dioxide (22-30) mmol/L Anion Gap mmol/L BUN (7-17) mg/dL Creatinine (0.52-1.04) mg/dL Est GFR (CKD-EPI)AfAm (>60 ml/min/1.73 sqM) Est GFR (CKD-EPI)NonAf (>60 ml/min/1.73 sqM) Glucose (74-99) mg/dL Plasma Lactic Acid Walter (0.7-2.0) mmol/L Calcium (8.4-10.2) mg/dL Total Bilirubin (0.2-1.3) mg/dL AST (14-36) U/L ALT (4-34) U/L Alkaline Phosphatase (38-126) U/L Total Protein (6.3-8.2) g/dL Albumin (3.5-5.0) g/dL Amylase (30-110) U/L Lipase (23-300) U/L Urine Color Yellow Urine Appearance Clear (Clear) Urine pH 6.5 (5.0-8.0) Ur Specific Eva 1.013 (1.001-1.035) Urine Protein Negative (Negative) Urine Glucose (UA) Negative (Negative) Urine Ketones Negative (Negative) Urine Blood Moderate H (Negative) Urine Nitrite Negative (Negative) Urine Bilirubin Negative (Negative) Urine Urobilinogen <2.0 (<2.0) mg/dL Ur Leukocyte Esterase Moderate H (Negative) Urine RBC 44 H (0-5) /hpf Urine WBC 6 H (0-5) /hpf Ur Squamous Epith Cells 2 (0-4) /hpf Urine Bacteria Rare H (None) /hpf Disposition Clinical Impression: Gastroenteritis Disposition: HOME SELF-CARE Condition: Good Instructions (If sedation given, give patient instructions): Acute Nausea and Vomiting in Children (ED) Is patient prescribed a controlled substance at d/c from ED?: No Referrals: Robson Curtis DO [Primary Care Provider] - 1-2 days Time of Disposition: 14:45
[2020-04-28 13:14] LABS: Basophils % (A) 0 %; Eosinophils # (A) 0.2 k/uL (0-0.7); Eosinophils % (A) 2 %; HCT 40.4 % (34.0-46.0); Lymphocytes # (A) 0.7 k/uL (1.0-4.8); Lymphocytes % (A) 6 %; MCH 31.4 pg (25.0-35.0); MCHC 32.1 g/dL (31.0-37.0); MCV 97.7 fL (80.0-100.0); Mean Platelet Volume 6.7; Monocytes # (A) 0.7 k/uL (0-1.0); Monocytes % (A) 6 %; Neutrophils # (A) 9.8 k/uL (1.3-7.7); Neutrophils % (A) 85 %; Platelet Count 319 k/uL (150-450); RBC 4.13 m/uL (3.80-5.40); RDW 12.4 % (11.5-15.5); WBC 11.6 k/uL (3.8-10.6)
[2020-04-28 13:24] LABS: ALT 19 U/L (4-34); AST 22 U/L (14-36); African American GFR (CKD) >90 (>60 ml/min/1.73 sqM); Albumin 3.6 g/dL (3.5-5.0); Alkaline Phosphatase 49 U/L (38-126); Amylase 55 U/L (30-110); Anion Gap 5 mmol/L; Blood Urea Nitrogen 17 mg/dL (7-17); Calcium 9.4 mg/dL (8.4-10.2); Carbon Dioxide 29 mmol/L (22-30); Chloride 105 mmol/L (98-107); Glucose 130 mg/dL (74-99); Non-African American GFR(CKD) >90 (>60 ml/min/1.73 sqM); Potassium 3.6 mmol/L (3.5-5.1); Sodium 139 mmol/L (137-145); Total Bilirubin 0.9 mg/dL (0.2-1.3); Total Protein 6.4 g/dL (6.3-8.2)
--- NOTE | 2020-04-28 13:24 | XR ---
EXAMINATION TYPE: XR chest 2V DATE OF EXAM: 04/28/2020 COMPARISON: Prior chest x-ray 08/09/2019 HISTORY: Abdominal pain, fever and headache and nausea TECHNIQUE: Frontal and lateral views of the chest are obtained. FINDINGS: There is no focal air space opacity, pleural effusion, or pneumothorax seen. The cardiac silhouette size is within normal limits. The osseous structures are intact. There are overlying car diac leads. IMPRESSION: No acute cardiopulmonary process.
[2020-04-28 14:20] LABS: Appearance,Urine Clear (Clear); Bacteria,Urine Rare /hpf; Bilirubin,Urine Negative (Negative); Blood,Urine Moderate (Negative); Color,Urine Yellow; Glucose,Urine (UA) Negative (Negative); Ketones,Urine Negative (Negative); Leukocyte Esterase,Urine Moderate (Negative); Nitrite,Urine Negative (Negative); PH, Urine 6.5 (5.0-8.0); Protein,Urine Negative (Negative); RBC,Urine 44 /hpf (0-5); Specific Gravity,Urine 1.013 (1.001-1.035); Squamous Epithelial Cell,Urine 2 /hpf (0-4); Urobilinogen,Urine <2.0 mg/dL (<2.0); WBC,Urine 6 /hpf (0-5)
[2020-04-28] MEDS ORDERED: ONDANSETRON 4 MG ODT STARTER PACK 2 TAB BTL PO STA (14:45)
[2020-04-28 15:07] VITALS: BP 114/61; PULSE 73; TEMP 98.2
== END 2020-04-28 15:15 | disposition home or self-care (01) ==
LOC: EC 12:04
DX: K52.9 Noninfective gastroenteritis and colitis, unspecified (principal); R06.03 Acute respiratory distress; J45.909 Unspecified asthma, uncomplicated; K21.9 Gastro-esophageal reflux disease without esophagitis; E78.5 Hyperlipidemia, unspecified; I10 Essential (primary) hypertension; M19.90 Unspecified osteoarthritis, unspecified site; E07.9 Disorder of thyroid, unspecified; G89.29 Other chronic pain; M54.9 Dorsalgia, unspecified; Z98.890 Other specified postprocedural states; Z79.51 Long term (current) use of inhaled steroids; Z79.82 Long term (current) use of aspirin; Z79.899 Other long term (current) drug therapy; Z88.1 Allergy status to other antibiotic agents; Z91.011 Allergy to milk products; Z91.018 Allergy to other foods; Z20.828 Contact with and (suspected) exposure to other viral communicable diseases; Z87.19 Personal history of other diseases of the digestive system
CPT/HCPCS: 36415; 93005; 80053; 82150; 83605; 83690; 85025; 81001; 87040; 71046; 96374; 96361; 99284; U0003; J2405; S0119

== ENCOUNTER → 2020-05-05 | Outpatient (CLI) | payer MEDICARE ==
--- NOTE | 2020-05-05 13:57 | XR ---
EXAMINATION TYPE: XR ribs RT DATE OF EXAM: 05/05/2020 COMPARISON: NONE HISTORY: Mid rib pain TECHNIQUE: 4 views submitted FINDINGS: Visualized lung reyes clear. No pneumothorax. Postsurgical change involving the vertebral column. Mild hypertrophic change of the AC joint. Rib cage is intact. IMPRESSION: No acute displaced rib fracture
--- NOTE | 2020-05-05 15:57 | US ---
EXAMINATION TYPE: US abdomen complete DATE OF EXAM: 05/05/2020 COMPARISON: NONE CLINICAL HISTORY: R10.11 Abd pain R upper Quad. RUQ pain EXAM MEASUREMENTS: Liver Length: 12.2 cm Gallbladder Wall: 0.2 cm CBD: 0.5 cm Spleen: unable to view Right Kidney: 9.9 x 4.5 x 5.4 cm Left Kidney: 11.2 x 5.2 x 6.4 cm Pancreas: wnl Liver: intercostal views due to bowel gas subcostally Gallbladder: Unremarkable Evidence for sonographic Aguayo's sign: no CBD: wnl Spleen: not seen due to high placement and bowel gas Right Kidney: 2.0 x 1.6 x 1.7cm inferior pole cyst Left Kidney: 1.9 x 1.8 x 1.2cm inferior pole cyst seen Upper IVC: wnl Abd Aorta: wnl IMPRESSION: 1. Bilateral renal cysts.
== END | disposition home or self-care (01) ==
LOC: RADUSWWP 13:09
PROVIDERS: ATTEND Internal Medicine Critical Care Medicine
DX: R10.11 Right upper quadrant pain (principal)
CPT/HCPCS: 76700

== ENCOUNTER 2020-06-30 10:39 | Day surgery (SDC) | payer MEDICARE ==
[2020-06-29 09:30] VITALS: BMI 27.9
[~2020-06-30 10:39] MED LIST changes: +LACTATED RINGERS 1,000 ML IV SCH; -SODIUM CHLORIDE 0.9% 500 ML 500 ML in EMPTY BAG 1 BAG IV PRN; -ZOLEDRONIC ACID 5 MG in SODIUM CHLORIDE 0.9% 100 ML IV NR
[2020-06-30] MEDS ORDERED: LIDOCAINE 1% (10MG/ML) FOR IV START INTRADERMA ONE (10:53)
[2020-06-30 11:07] VITALS: TEMP 99.4
[2020-06-30] MEDS ORDERED: PROPOFOL 10 MG/ML 20 ML VIAL IV ONE (12:36)
[2020-06-30] MEDS ORDERED: LIDOCAINE 1% INJ 10MG/ML (20 ML MDV) ONE (12:36)
--- NOTE | 2020-06-30 12:58 | P.PCN ---
Date of Procedure: 06/30/20 Procedure(s) Performed: Brief history: Patient is a pleasant 74-year-old white female scheduled for an elective upper endoscopy as well as colonoscopy as a part of evaluation of abdominal pain mostly in the right upper quadrant area. History of pyloroplasty for pyloric stenosis 6 years ago. She is also scheduled for colonoscopy Procedure performed: Esophagogastroduodenoscopy Colonoscopy Preoperative diagnosis: Right upper quadrant abdominal pain Screening for colon cancer Anesthesia: MAC Procedure: After informed consent was obtained the patient was brought into the endoscopy unit and IV sedation was administered by anesthesia under continuous monitoring. Initially upper endoscopy was done. The Olympus GF 160 video endoscope was inserted inserted into the mouth and esophagus intubated without any difficulty and was gradually advanced into the stomach and duodenum and carefully examined. The bulb and second part of the duodenum appeared normal. The scope was then withdrawn into the stomach adequately insufflated with air and upon careful examination the pylorus was patent. Mucosa of the antrum and body, cardia and fundus appeared normal. The scope was then withdrawn into the esophagus. The GE junction was located at 40 cm to the incisors. It appeared regular with superficial erosions and circumferential erythema consistent with LA grade a reflux esophagitis. Rest of the esophagus appeared normal. Patient tolerated the procedure well. At this time the patient continued to remain sedation. Initial digital rectal examination was normal. Olympus CF 160 video colonoscope was then inserted into the rectum and gradually advanced to the cecum without any difficulty. Careful examination was performed as the scope was gradually being withdrawn. The prep was excellent. The cecum, ascending colon, transverse colon, descending colon, sigmoid colon and rectum appeared normal. Scattered sigmoidal diverticulosis. Retroflexion was performed in the rectum and no lesions were noted. Patient tolerated the procedure well. Impression: 1. Upper endoscopy revealed circumferential erythema and one superficial erosion at the GE junction consistent with LA grade a reflux esophagitis, small hiatal hernia and patent pylorus 2. Colonoscopy was within normal limits with no evidence of colitis or colorectal neoplasia] Recommendations: Findings of this examination were discussed with the patient as well as as well as her family. She was advised Prilosec 20 Mg Daily and Follow Antireflux Measures. She Can Have a Repeat Screening Colonoscopy in 10 years.
[2020-06-30 13:09] VITALS: RESP 18
[2020-06-30 13:27] VITALS: BP 128/60; PULSE 67
== END 2020-06-30 13:48 | disposition home or self-care (01) ==
LOC: ORWHC2ENDO 10:39
PROVIDERS: ATTEND Internal Medicine Gastroenterology
DX: K57.30 Diverticulosis of large intestine without perforation or abscess without bleeding (principal); K25.9 Gastric ulcer, unspecified as acute or chronic, without hemorrhage or perforation; I10 Essential (primary) hypertension; E78.5 Hyperlipidemia, unspecified; J45.909 Unspecified asthma, uncomplicated; G47.33 Obstructive sleep apnea (adult) (pediatric); E07.9 Disorder of thyroid, unspecified; K21.9 Gastro-esophageal reflux disease without esophagitis; Z79.82 Long term (current) use of aspirin; Z79.1 Long term (current) use of non-steroidal anti-inflammatories (NSAID); Z79.899 Other long term (current) drug therapy; Z88.1 Allergy status to other antibiotic agents; Z88.8 Allergy status to other drugs, medicaments and biological substances; Z86.73 Personal history of transient ischemic attack (TIA), and cerebral infarction without residual deficits; Z86.711 Personal history of pulmonary embolism; Z99.89 Dependence on other enabling machines and devices; Z79.890 Hormone replacement therapy; Z79.51 Long term (current) use of inhaled steroids
CPT/HCPCS: 45378; 43235; J2001; J2704

== ENCOUNTER → 2020-07-07 | Outpatient (CLI) | payer MEDICARE ==
--- NOTE | 2020-07-07 14:49 | CT ---
EXAMINATION TYPE: CT lumbar spine wo con DATE OF EXAM: 07/07/2020 COMPARISON: None HISTORY: Lumbar disk herniation CT DLP: 998 mGycm CONTRAST: None TECHNIQUE: CT of the lumbar spine is performed on a spiral scan at 3 mm thick sections. Reconstructed images are performed in the coronal and sagittal planes. FINDINGS: T12-L1: No focal disc herniation or significant disc bulge is evident. No spinal canal stenosis or neural foraminal stenosis is present. L1-L2: No focal disc herniation or significant disc bulge is evident. No spinal canal stenosis or n eural foraminal stenosis is present L2-L3: Broad-based disc bulge has mild anterior thecal sac flattening. No AP spinal canal stenosis pr esent. Mild facet hypertrophy is present. Neural foramen are patent. L3-L4: There is narrowing of disc height. Vacuum disc phenomenon is present. Beam hardening artifact is present to this level due to right pedicle screw. Facet hypertrophy is present with some posterior lateral thecal sac compression. No spinal canal stenosis is present. L4-L5: There is loss of disc height to this level. Beam hardening artifact limits evaluation of the s gerardo canal. No obvious stenosis is evident. Some left foraminal narrowing is likely present. L5-S1: Broad-based disc bulge has mild anterior thecal sac contact. No AP spinal canal stenosis prese nt. Neural foramen are patent. Vertebral alignment appears normal. IMPRESSION: 1. Degenerative disc changes with loss of disc height L4-5 and to a lesser degree L3-4. 2. Broad-based disc bulge L2-3 with mild anterior thecal sac compression. 3. Limitations due to pedicle screws L5 L4 and L5 discussed above
== END | disposition home or self-care (01) ==
LOC: RADCTMAIN 08:15
PROVIDERS: ATTEND Specialist
DX: M51.26 Other intervertebral disc displacement, lumbar region (principal); M47.896 Other spondylosis, lumbar region
CPT/HCPCS: 72131

== ENCOUNTER → 2020-08-31 | Outpatient (CLI) | payer MEDICARE ==
[~2020-08-31] MED LIST changes: +COSYNTROPIN 0.25 MG VIAL IVP ONE; -LACTATED RINGERS 1,000 ML IV SCH; +SODIUM CHLORIDE 0.9% 500 ML 500 ML in EMPTY BAG 1 BAG IV PRN
[2020-08-31 08:18] VITALS: BP 144/80; PULSE 76; RESP 16; TEMP 97.9
[2020-08-31 09:10] LABS: African American GFR (CKD) >90 (>60 ml/min/1.73 sqM); Anion Gap 2 mmol/L; Blood Urea Nitrogen 13 mg/dL (7-17); Calcium 9.8 mg/dL (8.4-10.2); Carbon Dioxide 30 mmol/L (22-30); Chloride 107 mmol/L (98-107); Glucose 96 mg/dL (74-99); Non-African American GFR(CKD) >90 (>60 ml/min/1.73 sqM); Potassium 4.4 mmol/L (3.5-5.1); Sodium 139 mmol/L (137-145)
== END | disposition home or self-care (01) ==
LOC: PROCWHC3 07:58
PROVIDERS: ATTEND Internal Medicine
DX: E27.40 Unspecified adrenocortical insufficiency (principal); M81.0 Age-related osteoporosis without current pathological fracture; E21.0 Primary hyperparathyroidism; E55.9 Vitamin D deficiency, unspecified
CPT/HCPCS: 80048; 82533; 82024; 82306; 96374; J0834; 82523

== ENCOUNTER → 2020-09-13 | Outpatient (CLI) | payer MEDICARE ==
--- NOTE | 2020-09-13 10:48 | US ---
EXAMINATION TYPE: US kidneys/renal and bladder DATE OF EXAM: 09/13/2020 COMPARISON: US 05/05/2020 CLINICAL HISTORY: R13.9 Hematuria. EXAM MEASUREMENTS: Right Kidney: 9.4 x 4.6 x 4.4 cm Left Kidney: 10.6 x 5.9 x 5.0 cm Right Kidney: No hydronephrosis. Cystic area lower pole measuring 1.5 x 1.7 x 1.6 cm Left Kidney: Cystic area visualized 1.6 x 1.2 x 1.8 cm Bladder: wnl Bilateral Jets seen: Left jet only There is no evidence for hydronephrosis at this point in time. No nephrolithiasis is seen. The urin ginette bladder is anechoic. Left ureteral jet is seen. IMPRESSION: Bilateral renal cysts
== END | disposition home or self-care (01) ==
LOC: RADUSWWP 10:06
PROVIDERS: ATTEND Urology
DX: N28.1 Cyst of kidney, acquired (principal)
CPT/HCPCS: 76770

== ENCOUNTER → 2020-09-13 | Outpatient (CLI) | payer MEDICARE ==
--- NOTE | 2020-09-13 11:27 | MM ---
Reason for exam: additional evaluation requested from prior study. Last mammogram was performed 1 year and 3 months ago. History: Patient is postmenopausal. Family history of premenopausal breast cancer in mother at age 50. Reductions of both breasts, July 2005. Benign stereotactic core biopsy of the right breast, February 23, 2003. Benign stereotactic core biopsy of the left breast, August 28, 2000. Benign core biopsy of the left breast. Benign core biopsy of the right breast. Benign excisional biopsy of the right breast. Took estrogen for 20 years beginning at age 47. Physical Findings: Nurse did not find any significant physical abnormalities on exam. MG 3D Diag Mammo W/Cad CHARY Bilateral CC and MLO view(s) were taken. Prior study comparison: June 09, 2019, bilateral MG 3d diag mammo w/cad CHARY. March 02, 2018, bilateral MG 3d diag mammo w/cad CHARY. Benign appearing bilateral calcifications. Previous mammotome biopsy in the left breast. There is chronic nodularity in the left breast, stable. These results were verbally communicated with the patient and result sheet given to the patient on 09/13/20. ASSESSMENT: Benign, BI-RAD 2 RECOMMENDATION: Routine screening mammogram of both breasts in 1 year.
== END | disposition home or self-care (01) ==
LOC: RADMAMWWP 10:08
PROVIDERS: ATTEND Internal Medicine Critical Care Medicine
DX: N64.4 Mastodynia (principal)
CPT/HCPCS: 77066; G0279; 77062

== ENCOUNTER → 2020-10-04 | Outpatient (CLI) | payer MEDICARE ==
--- NOTE | 2020-10-04 14:44 | US ---
EXAMINATION TYPE: US venous doppler duplex LE LT DATE OF EXAM: 10/04/2020 2:15 PM COMPARISON: US CLINICAL HISTORY: M79.662 Pain in left lower leg, Z86.718. Pain left leg SIDE PERFORMED: Left TECHNIQUE: The lower extremity deep venous system is examined utilizing real time linear array sonog esteban with graded compression, doppler sonography and color-flow sonography. VESSELS IMAGED: Common Femoral Vein Deep Femoral Vein Greater Saphenous Vein * Femoral Vein Popliteal Vein Small Saphenous Vein * Proximal Calf Veins (* superficial vessels) Left Leg: Negative for DVT, Mccray's cyst left pop fossa= 4.0 x 0.8 x 2.5 cm Attempted to call Dr's office at time of exam, no answer IMPRESSION:. No evidence for DVT.
== END | disposition home or self-care (01) ==
LOC: RADUSWWP 13:42
PROVIDERS: ATTEND Internal Medicine
DX: M79.662 Pain in left lower leg (principal)

== ENCOUNTER → 2020-10-30 | Outpatient (CLI) | payer MEDICARE ==
[~2020-10-30] MED LIST changes: -COSYNTROPIN 0.25 MG VIAL IVP ONE; +ZOLEDRONIC ACID 5 MG in SODIUM CHLORIDE 0.9% 100 ML IV NR
[2020-10-30 13:08] VITALS: BP 165/87; PULSE 67; RESP 16; TEMP 97.8
== END | disposition home or self-care (01) ==
LOC: PROCWHC3 12:50
PROVIDERS: ATTEND Internal Medicine
DX: M81.0 Age-related osteoporosis without current pathological fracture (principal)
CPT/HCPCS: 96365; J3489

== ENCOUNTER → 2020-11-08 | Outpatient (CLI) | payer MEDICARE | END | disposition home or self-care (01) | LOC: LABWHC1 12:45 | PROVIDERS: ATTEND Internal Medicine Critical Care Medicine | DX: Z20.828 Contact with and (suspected) exposure to other viral communicable diseases (principal) | CPT/HCPCS: U0003; C9803 ==

== ENCOUNTER → 2020-11-29 | Outpatient (CLI) | payer MEDICARE ==
--- NOTE | 2020-11-29 16:18 | US ---
EXAMINATION TYPE: US thyroid st tissue head/neck DATE OF EXAM: 11/29/2020 COMPARISON: 12/24/2019 CLINICAL HISTORY: Z04.1 follow up on nodule. follow up thyroid nodules GLAND SIZE: Right Lobe: 4.6 x 1.1 x 1.7 cm Overall Parenchyma: homogenous Left Lobe: 4.3 x 1.2 x 1.5 cm Overall Parenchyma: homogeneous Isthmus Thickness: 0.2 cm NODULES RIGHT: # of nodules measured on right: 1 1. 0.6 X 0.3 x 0.5 cm mixed, hypoechoic nodule, which is wider than tall, with smooth margins, with echogenic foci. Prior size: 0.6 x 0.3 x 0.5 cm LEFT: # of nodules measured on left: 1 1. 0.9 X 0.7 x 0.9 cm solid, hypoechoic nodule, which is wider than tall, with smooth margins, with out echogenic foci. Prior size: 0.9 x 0.7 x 0.8 cm ISTHMUS: # of nodules measured in the isthmus: 0 Bilateral neck scanned, no evidence of lymphadenopathy. IMPRESSION: Stable Subcentimeter nodule left lobe thyroid. 2017 ACR TI-RADS LEVEL: TR-RADS 4 - Moderately Suspicious: Follow if > 1 cm, FNA if > 1.5 cm *Highest TI-RADS level nodule reported
== END | disposition home or self-care (01) ==
LOC: RADUSWWP 15:39
PROVIDERS: ATTEND Allergy & Immunology
DX: E04.1 Nontoxic single thyroid nodule (principal)
CPT/HCPCS: 76536

== ENCOUNTER → 2021-01-31 | Outpatient (CLI) | payer MEDICARE ==
[2021-01-31 16:24] LABS: Basophils # (A) 0.1 k/uL (0-0.2); Basophils % (A) 1 %; Eosinophils # (A) 0.2 k/uL (0-0.7); Eosinophils % (A) 3 %; HCT 34.3 % (34.0-46.0); HGB 11.4 gm/dL (11.4-16.0); Lymphocytes # (A) 1.5 k/uL (1.0-4.8); Lymphocytes % (A) 21 %; MCH 32.2 pg (25.0-35.0); MCHC 33.1 g/dL (31.0-37.0); MCV 97.3 fL (80.0-100.0); Mean Platelet Volume 6.5; Monocytes # (A) 0.4 k/uL (0-1.0); Monocytes % (A) 6 %; Neutrophils # (A) 4.8 k/uL (1.3-7.7); Neutrophils % (A) 68 %; Platelet Count 467 k/uL (150-450); RBC 3.52 m/uL (3.80-5.40); RDW 13.4 % (11.5-15.5)
[2021-01-31 17:36] LABS: Erythrocyte Sedimentation Rate 48 mm/hr (0-20)
--- NOTE | 2021-02-01 07:05 | US ---
EXAMINATION TYPE: US venous doppler duplex LE LT DATE OF EXAM: 01/31/2021 3:38 PM COMPARISON: CLINICAL HISTORY: M79.662 pain lower left limb ,R22.42swelling. Recent left total knee replacement. On blood thinners. Hx DVT. SIDE PERFORMED: Left TECHNIQUE: The lower extremity deep venous system is examined utilizing real time linear array sonog esteban with graded compression, doppler sonography and color-flow sonography. VESSELS IMAGED: Common Femoral Vein Deep Femoral Vein Greater Saphenous Vein * Femoral Vein Popliteal Vein Small Saphenous Vein * Proximal Calf Veins- not well visualized (* superficial vessels) Left Leg: Negative for DVT IMPRESSION: No evidence for DVT at this time.
== END | disposition home or self-care (01) ==
LOC: RADUSWWP 15:19
PROVIDERS: ATTEND Internal Medicine Critical Care Medicine
DX: M79.662 Pain in left lower leg (principal); R22.42 Localized swelling, mass and lump, left lower limb; R50.9 Fever, unspecified
CPT/HCPCS: 84145; 85025; 85652; 87040

== ENCOUNTER → 2021-04-13 | Outpatient (CLI) | payer MEDICARE ==
[2021-04-14 18:42] LABS: African American GFR (CKD) 99.6 (60.0-200.0); Albumin 4.3 g/dL (3.80-4.90); Albumin/Globulin Ratio 1.79 (1.60-3.17); Anion Gap 13.9 mmol/L (4.00-12.00); BUN/Creat Ratio 14.29 Ratio (12.00-20.00); Calcium 10.3 mg/dL (8.7-10.3); Carbon Dioxide 24.1 mmol/L (21.6-31.8); Globulin 2.4 g/dL (1.6-3.3); Total Bilirubin 0.4 mg/dL (0.3-1.2); Total Protein 6.7 g/dL (6.2-8.2)
== END | disposition home or self-care (01) ==
LOC: LABWHC1 14:55
PROVIDERS: ATTEND Internal Medicine
DX: E21.0 Primary hyperparathyroidism (principal)
CPT/HCPCS: 36415; 80053; 83970

== ENCOUNTER → 2021-04-13 | Outpatient (CLI) | payer MEDICARE ==
--- NOTE | 2021-04-13 15:17 | US ---
EXAMINATION TYPE: US venous doppler duplex LE BI DATE OF EXAM: 04/13/2021 2:50 PM COMPARISON: Multiple US's. 01/31/2021 most recent left CLINICAL HISTORY: M25.562 Pain in left knee,M25.462 Effusion. SIDE PERFORMED: Bilateral TECHNIQUE: The lower extremity deep venous system is examined utilizing real time linear array sonog esteban with graded compression, doppler sonography and color-flow sonography. VESSELS IMAGED: Common Femoral Vein Deep Femoral Vein Greater Saphenous Vein * Femoral Vein Popliteal Vein Small Saphenous Vein * Proximal Calf Veins (* superficial vessels) Right Leg: Negative for DVT Left Leg: Negative for DVT IMPRESSION: 1. There is no evidence of deep venous thrombosis in the bilateral lower extremity veins.
== END | disposition home or self-care (01) ==
LOC: RADUSWWP 14:24
PROVIDERS: ATTEND Internal Medicine
DX: M25.562 Pain in left knee (principal); M25.561 Pain in right knee; M25.462 Effusion, left knee; Z86.718 Personal history of other venous thrombosis and embolism
CPT/HCPCS: 93970

== ENCOUNTER → 2021-04-19 | Outpatient (CLI) | payer MEDICARE ==
--- NOTE | 2021-04-19 16:42 | BD ---
EXAMINATION TYPE: Axial Bone Density DATE OF EXAM: 04/19/2021 COMPARISON: NONE CLINICAL HISTORY: Height: 64.5 Weight: 174.3 FRAX RISK QUESTIONS: Alcohol (3 or more units per day): no Family History (Parent hip fracture): no Glucocorticoids (More than 3mos): no (Ex: prednisone, prednisolone, methylprednisolone, dexamethasone, and hydrocortisone). History of Fracture in Adulthood: yes Secondary Osteoporosis: 1. Type 1 Diabetes: no 2. Hyperthyroidism: no 3. Menopause before 45: yes 4. Malnutrition: no 5. Chronic liver disease: no Rheumatoid Arthritis: no Current Tobacco Use: no RISK FACTORS HISTORY OF: Surgery to Spine/Hip(right/left)/Wrist (right/left): l-4, l-5 When: 2019 Family History of Osteoporosis: no Active: yes Diet low in dairy products/other sources of calcium: yes Postmenopausal woman: age 45 Lost more than 2 inches in height since high school: 1 1/2 inches MEDICATIONS: lyrica, muscle meds, pepcid, revastatin, singulair, Symbicort, nasal spray Osteoporosis Medications: Reclast Additional History: EXAM MEASUREMENTS: Bone mineral densitometry was performed using the [employer]. Bone mineral density about the R hip (g/cm2): 0.798 Bone mineral density about the L hip (g/cm2): 0.727 T Score values are as follows: -----R Neck: -1.7 -----L Neck: -2.2 -----R Total: -1.3 -----L Total: -1.7 Bone mineral density has: decreased -0.5 % since study of: 03.24.2019 Bone mineral density about the L Wrist (g/cm2): 0.407 T Score values are as follows: -----Dist. R+U: -4.0 -----Prox. R+U: -3.4 -----Radius total: -4.4 Bone mineral density : baseline IMPRESSION: Osteoporosis (T Score less than -2.5). There is increased fracture risk and therapy is usually indicated based on age. Re-Screen 1-2 years. NOTE: T-SCORE=SD OF THE YOUNG ADULT MEAN.
== END | disposition home or self-care (01) ==
LOC: RADBDWWP 08:43
PROVIDERS: ATTEND Internal Medicine
DX: Z13.820 Encounter for screening for osteoporosis (principal); M81.0 Age-related osteoporosis without current pathological fracture; M85.89 Other specified disorders of bone density and structure, multiple sites; Z78.0 Asymptomatic menopausal state
CPT/HCPCS: 77080

== ENCOUNTER 2021-05-18 19:45 | Emergency (ER) | payer MEDICARE ==
[2021-05-18 19:50] VITALS: TEMP 98.1
--- NOTE | 2021-05-18 20:10 | ED ---
General Adult HPI - General Chief complaint: Chest Pain Stated complaint: Chest pain,Abn labs Time Seen by Provider: 05/18/21 19:56 Source: patient Mode of arrival: wheelchair Limitations: no limitations - History of Present Illness Initial comments: Patient presents to the ED with her for evaluation. Patient states that she had an episode of chest pain about 2 weeks ago for which she scheduled a follow-up appointment with her waffle machine operator in [place] today. Patient states that she saw her waffle machine operator's PA in their clinic today, and she states that she had a d-dimer drawn at that time. She states that she was called this evening and notified that her d-dimer was elevated, and she was instructed to go to the ED for pulmonary embolism rule out. Patient initially stated that she has not had any chest pain since 2 weeks ago, but she then admitted that she has had mild intermittent left-sided chest pain since then. Patient denies having any chest pain currently. Patient denies trauma or injury, fever or chills, headache, focal neuro deficit, neck/arm/jaw/back pain, pleuritic pain, dyspnea, cough or cold symptoms, palpitations, dizziness, nausea/vomiting/diaphoresis, abdominal pain, dysuria or urinary symptoms, leg or calf swelling or pain, or any other symptoms or complaints. - Related Data Home Medications Medication Instructions Recorded Confirmed Montelukast [Singulair] 10 mg PO HS 04/13/15 05/18/21 Baclofen 10 mg PO HS 06/25/17 05/18/21 Rosuvastatin Calcium [Crestor] 10 mg PO HS 08/09/19 05/18/21 Azelastine HCl [Astepro] 2 spray EA NOSTRIL BID 08/19/19 05/18/21 Ergocalciferol [Vitamin D2 50,000 unit PO TU 08/19/19 05/18/21 (DRISDOL)] Acetaminophen/Diphenhydramine 2 tab PO HS 04/28/20 05/18/21 [Tylenol PM 500-25mg] Aspirin EC [Ecotrin Low Dose] 81 mg PO HS 04/28/20 05/18/21 Budesonide/Formoterol Fumarate 2 puff INHALATION RT-BID 04/28/20 05/18/21 [Symbicort 160-4.5 Mcg Inhaler] Olopatadine HCl [Pataday] 1 drop BOTH EYES DAILY 04/28/20 05/18/21 Pregabalin [Lyrica] 50 mg PO HS 04/28/20 05/18/21 dilTIAZem HCL [Diltiazem HCl] 30 mg PO HS 04/28/20 05/18/21 Famotidine 20 mg PO BID 10/30/20 05/18/21 Pregabalin [Lyrica] 25 mg PO DAILY 05/18/21 05/18/21 Allergies Allergy/AdvReac Type Severity Reaction Status Date / Time levofloxacin [From Levaquin] Allergy Rash/Hives Verified 05/18/21 20:31 lacosamide [From Vimpat] AdvReac Confusion Verified 05/18/21 20:31 Milk Containing Products AdvReac avoids Verified 05/18/21 20:31 [Dairy] dairy products wheat AdvReac avoids Verified 05/18/21 20:31 wheat products processed foods AdvReac avoids Uncoded 05/18/21 19:50 processed foods Review of Systems ROS Statement: Those systems with pertinent positive or pertinent negative responses have been documented in the HPI. ROS Other: All systems not noted in ROS Statement are negative. 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 History of Any Multi-Drug Resistant Organisms: C-DIFF Date of last positivie culture/infection: 2018-march MDRO Source:: stool Past Surgical History: Adenoidectomy, Breast Surgery, Heart Catheterization, Hysterectomy, Joint Replacement, Orthopedic Surgery, Tonsillectomy Additional Past Surgical History / Comment(s): Spinal fusion-recent/laminectomy, epidural back injections, L knee arthroscopy, L shoulder arthroscopy for rotator cuff/bone spurs, EGDs/dilatations for pyloric stenosis, pyloroplasty d/t ulcer, esophageal manometry, colonoscopy, bladder cystogram, ventral hernia, L breast benign bx, bilateral breast reductions, abdominoplasty, bilateral cataract removals/lens implants. Left total knee january 2021 Past Anesthesia/Blood Transfusion Reactions: No Reported Reaction Additional Past Anesthesia/Blood Transfusion Reaction / Comment(s): takes a little while to wake up.no hx blood transfusion. Past Psychological History: No Psychological Hx Reported Smoking Status: Never smoker Past Alcohol Use History: None Reported Past Drug Use History: None Reported - Past Family History Brother(s) Family Medical History: Coronary Artery Disease (CAD) Additional Family Medical History / Comment(s): heart stents,2nd brother CABG Mother Family Medical History: Cancer, Hyperlipidemia, Hypertension Additional Family Medical History / Comment(s): Mother of ovarian cancer at the age of 69yrs. She also had breast cancer Father Family Medical History: Coronary Artery Disease (CAD), Hyperlipidemia, Hypertension Additional Family Medical History / Comment(s): quad bypass in his 40's General Exam Limitations: no limitations General appearance: alert, in no apparent distress Head exam: Present: atraumatic, normocephalic Eye exam: Present: normal appearance, EOMI ENT exam: Present: mucous membranes moist Neck exam: Present: other (Trachea is in midline) Respiratory exam: Present: normal lung sounds bilaterally. Absent: respiratory distress, wheezes, rales, rhonchi, stridor, chest wall tenderness Cardiovascular Exam: Present: regular rate, normal rhythm, normal heart sounds, other (Normal radial pulses bilaterally) GI/Abdominal exam: Present: soft. Absent: distended, tenderness, guarding Extremities exam: Present: other (Negative Homans sign bilaterally). Absent: tenderness, pedal edema, calf tenderness Neurological exam: Present: alert, oriented X3. Absent: motor sensory deficit Psychiatric exam: Present: normal affect, normal mood Skin exam: Present: warm, dry, intact, normal color Course Vital Signs 05/18/21 05/18/21 05/18/21 19:46 20:25 20:42 Temperature 98.1 F Pulse Rate 83 80 Pulse Rate [ 71 Buffer Automatic ] Respiratory 17 18 Rate Blood Pressure 185/84 163/71 O2 Sat by Pulse 99 99 Oximetry 05/18/21 05/18/21 20:53 21:52 Temperature Pulse Rate 75 Pulse Rate [ Buffer Automatic ] Respiratory 18 18 Rate Blood Pressure 150/79 O2 Sat by Pulse 97 Oximetry - Reevaluation(s) Reevaluation #1: 05/18/21 21:56 Patient continues to deny having any chest pain or symptoms while in the ED. Patient remains alert and breathing comfortably with a normal room air oxygen saturation. Patient and are aware of the patient's test results, and patient feels comfortable going home with her at this time. Patient was instructed to follow up closely with her PCP, as well as her waffle machine operator. Patient was instructed to have a low threshold for return to the emergency department should her symptoms worsen. Patient was counseled about chest pain, and she was clearly explained return and follow-up instructions. Patient feels comfortable with this plan. EKG Findings - EKG Comments: EKG Findings:: Normal sinus rhythm, no ectopy, ventricular rate of 79 bpm, normal TX and QRS intervals, normal QT interval, leftward axis, no ST or T-wave abnormality Medical Decision Making - Medical Decision Making Patient denies having any chest pain while in the ED. Patient denies feeling dyspneic. Patient has a normal room air oxygen saturation. Patient's CT angiography chest with IV contrast is negative for pulmonary embolism. Patient's troponin is negative. I do not suspect an emergent medical condition at this time. Will discharge patient home with her at this time. - Lab Data Result diagrams: 05/18/21 20:23 05/18/21 20:23 Lab Results 05/18/21 05/18/21 05/18/21 Range/Units 20:23 20:23 20:23 WBC 7.8 (3.8-10.6) k/uL RBC 4.16 (3.80-5.40) m/uL Hgb 13.5 (11.4-16.0) gm/dL Hct 39.2 (34.0-46.0) % MCV 94.1 (80.0-100.0) fL MCH 32.3 (25.0-35.0) pg MCHC 34.3 (31.0-37.0) g/dL RDW 12.5 (11.5-15.5) % Plt Count 309 (150-450) k/uL MPV 6.7 Neutrophils % 53 % Lymphocytes % 35 % Monocytes % 7 % Eosinophils % 1 % Basophils % 1 % Neutrophils # 4.2 (1.3-7.7) k/uL Lymphocytes # 2.7 (1.0-4.8) k/uL Monocytes # 0.6 (0-1.0) k/uL Eosinophils # 0.1 (0-0.7) k/uL Basophils # 0.1 (0-0.2) k/uL PT 11.0 (9.0-12.0) sec INR 1.0 (<1.2) APTT 23.8 (22.0-30.0) sec Sodium 141 (137-145) mmol/L Potassium 3.8 (3.5-5.1) mmol/L Chloride 105 (98-107) mmol/L Carbon Dioxide 30 (22-30) mmol/L Anion Gap 6 mmol/L BUN 11 (7-17) mg/dL Creatinine 0.75 (0.52-1.04) mg/dL Est GFR (CKD-EPI)AfAm >90 (>60 ml/min/1.73 sqM) Est GFR (CKD-EPI)NonAf 79 (>60 ml/min/1.73 sqM) Glucose 105 H (74-99) mg/dL Calcium 10.9 H (8.4-10.2) mg/dL Total Bilirubin 0.3 (0.2-1.3) mg/dL AST 29 (14-36) U/L ALT 16 (4-34) U/L Alkaline Phosphatase 67 (38-126) U/L Troponin I (0.000-0.034) ng/mL NT-Pro-B Natriuret Pep pg/mL Total Protein 6.7 (6.3-8.2) g/dL Albumin 4.1 (3.5-5.0) g/dL 05/18/21 05/18/21 Range/Units 20:23 20:23 WBC (3.8-10.6) k/uL RBC (3.80-5.40) m/uL Hgb (11.4-16.0) gm/dL Hct (34.0-46.0) % MCV (80.0-100.0) fL MCH (25.0-35.0) pg MCHC (31.0-37.0) g/dL RDW (11.5-15.5) % Plt Count (150-450) k/uL MPV Neutrophils % % Lymphocytes % % Monocytes % % Eosinophils % % Basophils % % Neutrophils # (1.3-7.7) k/uL Lymphocytes # (1.0-4.8) k/uL Monocytes # (0-1.0) k/uL Eosinophils # (0-0.7) k/uL Basophils # (0-0.2) k/uL PT (9.0-12.0) sec INR (<1.2) APTT (22.0-30.0) sec Sodium (137-145) mmol/L Potassium (3.5-5.1) mmol/L Chloride (98-107) mmol/L Carbon Dioxide (22-30) mmol/L Anion Gap mmol/L BUN (7-17) mg/dL Creatinine (0.52-1.04) mg/dL Est GFR (CKD-EPI)AfAm (>60 ml/min/1.73 sqM) Est GFR (CKD-EPI)NonAf (>60 ml/min/1.73 sqM) Glucose (74-99) mg/dL Calcium (8.4-10.2) mg/dL Total Bilirubin (0.2-1.3) mg/dL AST (14-36) U/L ALT (4-34) U/L Alkaline Phosphatase (38-126) U/L Troponin I <0.012 (0.000-0.034) ng/mL NT-Pro-B Natriuret Pep 214 pg/mL Total Protein (6.3-8.2) g/dL Albumin (3.5-5.0) g/dL - Radiology Data Radiology results: report reviewed (CT angiography chest with IV contrast: Negative exam. No evidence of pulmonary embolism.) Disposition Clinical Impression: Chest pain Narrative: Reported elevated d-dimer Disposition: HOME SELF-CARE Condition: Stable Instructions (If sedation given, give patient instructions): Chest Pain (ED) Additional Instructions: Return to the ER immediately if you develop new or worsening pain, persistent pain, shortness of breath, a fever, vomiting, feeling dizzy or faint, or new or worsening symptoms. Follow up closely with your primary care provider. Is patient prescribed a controlled substance at d/c from ED?: No Referrals: Robson Curtis DO [Primary Care Provider] - 1-2 days Time of Disposition: 21:59
[2021-05-18] MEDS ORDERED: SODIUM CHLORIDE 0.9% 500 ML 500 ML IV STA (20:20)
[2021-05-18 20:26] VITALS: RESP 18
[2021-05-18 20:32] LABS: Basophils # (A) 0.1 k/uL (0-0.2); Basophils % (A) 1 %; Eosinophils # (A) 0.1 k/uL (0-0.7); Eosinophils % (A) 1 %; HCT 39.2 % (34.0-46.0); HGB 13.5 gm/dL (11.4-16.0); Lymphocytes # (A) 2.7 k/uL (1.0-4.8); Lymphocytes % (A) 35 %; MCH 32.3 pg (25.0-35.0); MCHC 34.3 g/dL (31.0-37.0); MCV 94.1 fL (80.0-100.0); Mean Platelet Volume 6.7; Monocytes # (A) 0.6 k/uL (0-1.0); Monocytes % (A) 7 %; Neutrophils # (A) 4.2 k/uL (1.3-7.7); Neutrophils % (A) 53 %; Platelet Count 309 k/uL (150-450); RBC 4.16 m/uL (3.80-5.40); RDW 12.5 % (11.5-15.5); WBC 7.8 k/uL (3.8-10.6)
[2021-05-18 20:43] LABS: Partial Thromboplastin Time 23.8 sec (22.0-30.0)
[2021-05-18 20:46] LABS: ALT 16 U/L (4-34); AST 29 U/L (14-36); African American GFR (CKD) >90 (>60 ml/min/1.73 sqM); Albumin 4.1 g/dL (3.5-5.0); Alkaline Phosphatase 67 U/L (38-126); Anion Gap 6 mmol/L; Blood Urea Nitrogen 11 mg/dL (7-17); Calcium 10.9 mg/dL (8.4-10.2); Carbon Dioxide 30 mmol/L (22-30); Chloride 105 mmol/L (98-107); Glucose 105 mg/dL (74-99); Non-African American GFR(CKD) 79 (>60 ml/min/1.73 sqM); Potassium 3.8 mmol/L (3.5-5.1); Sodium 141 mmol/L (137-145); Total Bilirubin 0.3 mg/dL (0.2-1.3); Total Protein 6.7 g/dL (6.3-8.2)
--- NOTE | 2021-05-18 21:41 | CT ---
EXAMINATION TYPE: CT chest angio for PE DATE OF EXAM: 05/18/2021 COMPARISON: 11/12/2019 HISTORY: Chest pain and elevated d-dimer. CT DLP: 306.3 mGycm Automated exposure control for dose reduction was used. CONTRAST: Performed with IV Contrast, patient injected with 66ml mL of Isovue 370. There are 3-D post processed images. There is no mediastinal adenopathy. Thoracic aorta is intact. There is no aneurysm or dissection. The heart size is normal. There is no pericardial effusion. There is normal contrast opacification of th e pulmonary arteries. There are no filling defects. The lungs are clear of infiltrate. There is no evidence of a pulmonary mass. There is no pleural effu mark anthony. Thoracic spine appears intact. There is no significant compression deformity. Sternum is intact. IMPRESSION: Negative exam. No evidence of pulmonary embolism.
[2021-05-18 21:54] VITALS: BP 150/79; PULSE 75
== END 2021-05-18 22:05 | disposition home or self-care (01) ==
LOC: EC 19:45
DX: R07.89 Other chest pain (principal); E78.5 Hyperlipidemia, unspecified; I10 Essential (primary) hypertension; J45.909 Unspecified asthma, uncomplicated; K21.9 Gastro-esophageal reflux disease without esophagitis; M19.90 Unspecified osteoarthritis, unspecified site; Z79.51 Long term (current) use of inhaled steroids; Z79.82 Long term (current) use of aspirin; Z79.899 Other long term (current) drug therapy; Z88.1 Allergy status to other antibiotic agents; Z91.018 Allergy to other foods; Z88.8 Allergy status to other drugs, medicaments and biological substances; Z91.011 Allergy to milk products
CPT/HCPCS: 36415; 93005; 83880; 80053; 84484; 85025; 85610; 85730; 71275; 99285; 96360; Q9967

== ENCOUNTER → 2021-05-23 | Outpatient (CLI) | payer MEDICARE ==
--- NOTE | 2021-05-23 13:21 | US ---
EXAMINATION TYPE: US venous doppler duplex LE BI DATE OF EXAM: 05/23/2021 12:56 PM COMPARISON: 04/13/2021 CLINICAL HISTORY: R22.42 R22.41 Swelling of right lower limb. Swelling per patient. Not on blood thi nners. Elevated DDimer SIDE PERFORMED: Bilateral TECHNIQUE: The lower extremity deep venous system is examined utilizing real time linear array sonog esteban with graded compression, doppler sonography and color-flow sonography. VESSELS IMAGED: Common Femoral Vein Deep Femoral Vein Greater Saphenous Vein * Femoral Vein Popliteal Vein Small Saphenous Vein * Proximal Calf Veins (* superficial vessels) Right Leg: Negative for DVT Left Leg: Negative for DVT IMPRESSION: No sonographic evidence for deep vein thrombosis of the bilateral lower extremities.
== END | disposition home or self-care (01) ==
LOC: RADUSWWP 12:24
PROVIDERS: ATTEND Internal Medicine Critical Care Medicine
DX: R22.43 Localized swelling, mass and lump, lower limb, bilateral (principal)
CPT/HCPCS: 93970

== ENCOUNTER → 2021-06-07 | Outpatient (CLI) | payer MEDICARE ==
--- NOTE | 2021-06-08 10:01 | XR ---
EXAMINATION TYPE: XR spine complete AP and Lat DATE OF EXAM: 06/07/2021 COMPARISON: NONE HISTORY: Pain TECHNIQUE: AP and lateral the cervical, thoracic, and lumbar spine submitted FINDINGS: There is loss the normal cervical lordosis. There is posterior spondylosis C5-C6 with severe degenera tive disc disease. Severe degenerative disc disease with anterior spurring C6-C7. Odontoid intact. So ft tissue calcifications likely related to carotid artery. Diffuse osteopenia. Thoracic spine demonstrates a diffuse osteopenia. There is mild narrowing of the disc spaces at multi ple levels with no compression deformities. Pedicles are intact. Lumbar spine demonstrates postsurgical change L4-L5 with evidence of a levoscoliosis and severe degen erative disc disease L3-L4. Moderate degenerative disc disease L2-L3 and L5-S1. No compression deform ities. Diffuse osteopenia. Remaining nonsurgical level pedicles are intact. IMPRESSION: 1. Multilevel degenerative disc disease involving the cervical, thoracic and lumbar spine.
== END | disposition home or self-care (01) ==
LOC: RADXRMAIN 17:45
PROVIDERS: ATTEND Specialist
DX: M48.062 Spinal stenosis, lumbar region with neurogenic claudication (principal); M51.26 Other intervertebral disc displacement, lumbar region; M51.36 Other intervertebral disc degeneration, lumbar region; M51.34 Other intervertebral disc degeneration, thoracic region; M50.30 Other cervical disc degeneration, unspecified cervical region; M99.83 Other biomechanical lesions of lumbar region; Z98.1 Arthrodesis status
CPT/HCPCS: 72082

== ENCOUNTER 2021-07-04 10:11 | Emergency (ER) | payer MEDICARE ==
[2021-07-04 10:27] VITALS: RESP 18; TEMP 98.1
[2021-07-04] MEDS ORDERED: SODIUM CHLORIDE 0.9% 500 ML 500 ML IV STA (10:45)
--- NOTE | 2021-07-04 10:49 | ED ---
General Adult HPI - General Chief complaint: Allergic Reaction Stated complaint: Med Reaction Time Seen by Provider: 07/04/21 10:33 Source: patient, family, RN notes reviewed, old records reviewed Mode of arrival: wheelchair Limitations: no limitations - History of Present Illness Initial comments: 74-year-old white female, alert and oriented 4, presents to the emergency room with his family member complaining of nausea, dry mouth and a decreased appetite after starting Cymbalta. Patient states that she was on Lyrica for 3 years for her fibromyalgia and her primary care doctor switched her to Cymbalta. She states that she started taking it Friday and Friday and Friday and started to have dry mouth nausea and not feeling well. She states that she feels shaky but denies any fevers shortness of breath or chest pain. She does state that she believes it is related to the Cymbalta. She did call her primary care doctor and he told her she could restart the Lyrica and stopped the Cymbalta. She states that she just feels very jittery and doesn't like the feeling that she came to the emergency room. -: days(s) (3) Severity scale (1-10): 0 Associated Symptoms: loss of appetite, nausea/vomiting, other Treatments Prior to Arrival: none (Dry mouth) - Related Data Home Medications Medication Instructions Recorded Confirmed Montelukast [Singulair] 10 mg PO HS 04/13/15 07/04/21 Baclofen 10 mg PO HS 06/25/17 07/04/21 Rosuvastatin Calcium [Crestor] 10 mg PO HS 08/09/19 07/04/21 Azelastine HCl [Astepro] 2 spray EA NOSTRIL BID 08/19/19 07/04/21 Ergocalciferol [Vitamin D2 50,000 unit PO TU 08/19/19 07/04/21 (DRISDOL)] Acetaminophen/Diphenhydramine 2 tab PO HS 04/28/20 07/04/21 [Tylenol PM 500-25mg] Aspirin EC [Ecotrin Low Dose] 81 mg PO HS 04/28/20 07/04/21 Budesonide/Formoterol Fumarate 2 puff INHALATION RT-BID 04/28/20 07/04/21 [Symbicort 160-4.5 Mcg Inhaler] Olopatadine HCl [Pataday] 1 drop BOTH EYES DAILY 04/28/20 07/04/21 Pregabalin [Lyrica] 50 mg PO HS 04/28/20 07/04/21 dilTIAZem HCL [Diltiazem HCl] 30 mg PO HS 04/28/20 07/04/21 Pregabalin [Lyrica] 25 mg PO DAILY 05/18/21 07/04/21 Albuterol Inhaler [Ventolin Hfa 1 - 2 puff INHALATION RT-QID PRN 07/04/21 07/04/21 Inhaler] Albuterol Nebulized [Ventolin 2.5 mg INHALATION RT-QID PRN 07/04/21 07/04/21 Nebulized] Omeprazole Magnesium [PriLOSEC OTC] 20 mg PO DAILY 07/04/21 07/04/21 Allergies Allergy/AdvReac Type Severity Reaction Status Date / Time levofloxacin [From Levaquin] Allergy Rash/Hives Verified 07/04/21 11:58 lacosamide [From Vimpat] AdvReac Confusion Verified 07/04/21 11:58 Milk Containing Products AdvReac avoids Verified 07/04/21 11:58 [Dairy] dairy products wheat AdvReac avoids Verified 07/04/21 11:58 wheat products processed foods AdvReac avoids Uncoded 07/04/21 11:58 processed foods Review of Systems ROS Statement: Those systems with pertinent positive or pertinent negative responses have been documented in the HPI. ROS Other: All systems not noted in ROS Statement are negative. Past Medical History Past Medical History: Asthma, Deep Vein Thrombosis (DVT), Eye Disorder, GE RD/Reflux, Hyperlipidemia, Hypertension, Osteoarthritis (OA), Skin Disorder, Sleep Apnea/CPAP/BIPAP, Thyroid Disorder Additional Past Medical History / Comment(s): Current event monitor for tachycardia/palpitations, pyloric sphincer ulcer with surgery, pyloric stenosis, IBS, adrenal insufficiency r/t detention steroid use, arthritis in multiple joints, chronic cervical pain, chronic back pain, DDD, mild HENRY-no device, thyroid nodules/hypothyroid, coronary cat scan showed 25-50% blockage, neurocardiogenic hypotension, 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 History of Any Multi-Drug Resistant Organisms: C-DIFF Date of last positivie culture/infection: 2018-march MDRO Source:: stool Past Surgical History: Adenoidectomy, Breast Surgery, Heart Catheterization, Hysterectomy, Joint Replacement, Orthopedic Surgery, Tonsillectomy Additional Past Surgical History / Comment(s): Spinal fusion-recent/laminectomy, epidural back injections, L knee arthroscopy, L shoulder arthroscopy for rotator cuff/bone spurs, EGDs/dilatations for pyloric stenosis, pyloroplasty d/t ulcer, esophageal manometry, colonoscopy, bladder cystogram, ventral hernia, L breast benign bx, bilateral breast reductions, abdominoplasty, bilateral cataract removals/lens implants. Left total knee january 2021 Past Anesthesia/Blood Transfusion Reactions: No Reported Reaction Additional Past Anesthesia/Blood Transfusion Reaction / Comment(s): takes a little while to wake up.no hx blood transfusion. Past Psychological History: No Psychological Hx Reported Smoking Status: Never smoker Past Alcohol Use History: None Reported Past Drug Use History: None Reported - Past Family History Brother(s) Family Medical History: Coronary Artery Disease (CAD) Additional Family Medical History / Comment(s): heart stents,2nd brother CABG Mother Family Medical History: Cancer, Hyperlipidemia, Hypertension Additional Family Medical History / Comment(s): Mother of ovarian cancer at the age of 69yrs. She also had breast cancer Father Family Medical History: Coronary Artery Disease (CAD), Hyperlipidemia, Hypertension Additional Family Medical History / Comment(s): quad bypass in his 40's General Exam Limitations: no limitations General appearance: alert, in no apparent distress Head exam: Present: atraumatic, normocephalic, normal inspection Eye exam: Present: normal appearance, PERRL, EOMI. Absent: scleral icterus, conjunctival injection, periorbital swelling ENT exam: Present: normal exam, normal oropharynx, mucous membranes moist Neck exam: Present: normal inspection, full ROM. Absent: tenderness, meningismus, lymphadenopathy Respiratory exam: Present: normal lung sounds bilaterally. Absent: respiratory distress, wheezes, rales, rhonchi, stridor, decreased breath sounds Cardiovascular Exam: Present: regular rate, normal rhythm, normal heart sounds. Absent: systolic murmur, diastolic murmur, rubs, gallop, clicks GI/Abdominal exam: Present: soft, normal bowel sounds. Absent: distended, tenderness, guarding, rebound, rigid Extremities exam: Present: normal inspection, full ROM, normal capillary refill. Absent: tenderness, pedal edema, joint swelling, calf tenderness Back exam: Present: normal inspection, full ROM. Absent: tenderness, CVA tenderness (R), CVA tenderness (L), muscle spasm, paraspinal tenderness, vertebral tenderness, rash noted Neurological exam: Present: alert, oriented X3, CN II-XII intact Psychiatric exam: Present: anxious Skin exam: Present: warm, dry, intact, normal color. Absent: rash, cyanosis, diaphoretic, erythema, petechiae, pallor, mottled Course Vital Signs 07/04/21 07/04/21 07/04/21 10:23 12:25 13:19 Temperature 98.1 F Pulse Rate 80 72 75 Respiratory 18 18 18 Rate Blood Pressure 164/84 176/82 O2 Sat by Pulse 99 99 99 Oximetry EKG Findings - EKG Results: EKG: sinus rhythm (Ventricular rate of 67, NE interval of 0.180, QRS 0.96, QTC 0.414) Medical Decision Making - Medical Decision Making Glucose is 108, troponin is negative at 0.012. EKG shows normal sinus rhythm with no ST elevation or ectopy. No evidence of uti. This is likely side effects from Cymbalta. She was directed to stop Cymbalta as her doctor suggested and restart her Lyrica. Follow-up with her primary care doctor next week. Return with any new or worsening symptoms. Dr. Rodriguez at bedside to evaluate patient. - Lab Data Result diagrams: 07/04/21 11:17 07/04/21 11:17 Lab Results 07/04/21 07/04/21 07/04/21 Range/Units 11:17 11:17 11:17 WBC 6.2 (3.8-10.6) k/uL RBC 4.27 (3.80-5.40) m/uL Hgb 13.8 (11.4-16.0) gm/dL Hct 42.2 (34.0-46.0) % MCV 98.7 (80.0-100.0) fL MCH 32.4 (25.0-35.0) pg MCHC 32.8 (31.0-37.0) g/dL RDW 13.3 (11.5-15.5) % Plt Count 359 (150-450) k/uL MPV 6.5 Neutrophils % 63 % Lymphocytes % 27 % Monocytes % 6 % Eosinophils % 1 % Basophils % 1 % Neutrophils # 3.9 (1.3-7.7) k/uL Lymphocytes # 1.7 (1.0-4.8) k/uL Monocytes # 0.4 (0-1.0) k/uL Eosinophils # 0.1 (0-0.7) k/uL Basophils # 0.0 (0-0.2) k/uL Sodium 135 L (137-145) mmol/L Potassium 3.8 (3.5-5.1) mmol/L Chloride 101 (98-107) mmol/L Carbon Dioxide 27 (22-30) mmol/L Anion Gap 7 mmol/L BUN 6 L (7-17) mg/dL Creatinine 0.51 L (0.52-1.04) mg/dL Est GFR (CKD-EPI)AfAm >90 (>60 ml/min/1.73 sqM) Est GFR (CKD-EPI)NonAf >90 (>60 ml/min/1.73 sqM) Glucose 108 H (74-99) mg/dL Calcium 10.5 H (8.4-10.2) mg/dL Total Bilirubin 0.9 (0.2-1.3) mg/dL AST 29 (14-36) U/L ALT 18 (4-34) U/L Alkaline Phosphatase 72 (38-126) U/L Troponin I (0.000-0.034) ng/mL Total Protein 7.3 (6.3-8.2) g/dL Albumin 4.5 (3.5-5.0) g/dL Amylase 62 (30-110) U/L Lipase 87 (23-300) U/L Urine Color Light Yellow Urine Appearance Clear (Clear) Urine pH 7.5 (5.0-8.0) Ur Specific [place] 1.005 (1.001-1.035) Urine Protein Negative (Negative) Urine Glucose (UA) Negative (Negative) Urine Ketones Negative (Negative) Urine Blood Moderate H (Negative) Urine Nitrite Negative (Negative) Urine Bilirubin Negative (Negative) Urine Urobilinogen <2.0 (<2.0) mg/dL Ur Leukocyte Esterase Small H (Negative) Urine RBC 20 H (0-5) /hpf Urine WBC 2 (0-5) /hpf Ur Squamous Epith Cells <1 (0-4) /hpf Urine Bacteria Rare H (None) /hpf Urine Mucus Rare H (None) /hpf 07/04/21 Range/Units 11:17 WBC (3.8-10.6) k/uL RBC (3.80-5.40) m/uL Hgb (11.4-16.0) gm/dL Hct (34.0-46.0) % MCV (80.0-100.0) fL MCH (25.0-35.0) pg MCHC (31.0-37.0) g/dL RDW (11.5-15.5) % Plt Count (150-450) k/uL MPV Neutrophils % % Lymphocytes % % Monocytes % % Eosinophils % % Basophils % % Neutrophils # (1.3-7.7) k/uL Lymphocytes # (1.0-4.8) k/uL Monocytes # (0-1.0) k/uL Eosinophils # (0-0.7) k/uL Basophils # (0-0.2) k/uL Sodium (137-145) mmol/L Potassium (3.5-5.1) mmol/L Chloride (98-107) mmol/L Carbon Dioxide (22-30) mmol/L Anion Gap mmol/L BUN (7-17) mg/dL Creatinine (0.52-1.04) mg/dL Est GFR (CKD-EPI)AfAm (>60 ml/min/1.73 sqM) Est GFR (CKD-EPI)NonAf (>60 ml/min/1.73 sqM) Glucose (74-99) mg/dL Calcium (8.4-10.2) mg/dL Total Bilirubin (0.2-1.3) mg/dL AST (14-36) U/L ALT (4-34) U/L Alkaline Phosphatase (38-126) U/L Troponin I <0.012 (0.000-0.034) ng/mL Total Protein (6.3-8.2) g/dL Albumin (3.5-5.0) g/dL Amylase (30-110) U/L Lipase (23-300) U/L Urine Color Urine Appearance (Clear) Urine pH (5.0-8.0) Ur Specific [place] (1.001-1.035) Urine Protein (Negative) Urine Glucose (UA) (Negative) Urine Ketones (Negative) Urine Blood (Negative) Urine Nitrite (Negative) Urine Bilirubin (Negative) Urine Urobilinogen (<2.0) mg/dL Ur Leukocyte Esterase (Negative) Urine RBC (0-5) /hpf Urine WBC (0-5) /hpf Ur Squamous Epith Cells (0-4) /hpf Urine Bacteria (None) /hpf Urine Mucus (None) /hpf Disposition Clinical Impression: Medication side effects Disposition: HOME SELF-CARE Condition: Good Additional Instructions: Return if any new or worsening symptoms. Stopped taking Cymbalta as it is krista hammer the cause of her side effects. Follow-up with your primary care doctor this week. Is patient prescribed a controlled substance at d/c from ED?: No Referrals: Robson Curtis DO [Primary Care Provider] - 1-2 days Time of Disposition: 12:25
[2021-07-04 11:26] LABS: Basophils % (A) 1 %; Eosinophils # (A) 0.1 k/uL (0-0.7); Eosinophils % (A) 1 %; HCT 42.2 % (34.0-46.0); HGB 13.8 gm/dL (11.4-16.0); Lymphocytes # (A) 1.7 k/uL (1.0-4.8); Lymphocytes % (A) 27 %; MCH 32.4 pg (25.0-35.0); MCHC 32.8 g/dL (31.0-37.0); MCV 98.7 fL (80.0-100.0); Mean Platelet Volume 6.5; Monocytes # (A) 0.4 k/uL (0-1.0); Monocytes % (A) 6 %; Neutrophils # (A) 3.9 k/uL (1.3-7.7); Neutrophils % (A) 63 %; Platelet Count 359 k/uL (150-450); RBC 4.27 m/uL (3.80-5.40); RDW 13.3 % (11.5-15.5); WBC 6.2 k/uL (3.8-10.6)
[2021-07-04 11:35] LABS: ALT 18 U/L (4-34); AST 29 U/L (14-36); African American GFR (CKD) >90 (>60 ml/min/1.73 sqM); Albumin 4.5 g/dL (3.5-5.0); Alkaline Phosphatase 72 U/L (38-126); Amylase 62 U/L (30-110); Anion Gap 7 mmol/L; Blood Urea Nitrogen 6 mg/dL (7-17); Calcium 10.5 mg/dL (8.4-10.2); Carbon Dioxide 27 mmol/L (22-30); Chloride 101 mmol/L (98-107); Glucose 108 mg/dL (74-99); Lipase 87 U/L (23-300); Non-African American GFR(CKD) >90 (>60 ml/min/1.73 sqM); Potassium 3.8 mmol/L (3.5-5.1); Sodium 135 mmol/L (137-145); Total Bilirubin 0.9 mg/dL (0.2-1.3); Total Protein 7.3 g/dL (6.3-8.2)
[2021-07-04 11:37] LABS: Appearance,Urine Clear (Clear); Bacteria,Urine Rare /hpf; Bilirubin,Urine Negative (Negative); Blood,Urine Moderate (Negative); Color,Urine Light Yellow; Glucose,Urine (UA) Negative (Negative); Ketones,Urine Negative (Negative); Leukocyte Esterase,Urine Small (Negative); Mucus,Urine Rare /hpf; Nitrite,Urine Negative (Negative); PH, Urine 7.5 (5.0-8.0); Protein,Urine Negative (Negative); RBC,Urine 20 /hpf (0-5); Specific Gravity,Urine 1.005 (1.001-1.035); Squamous Epithelial Cell,Urine <1 /hpf (0-4); Urobilinogen,Urine <2.0 mg/dL (<2.0); WBC,Urine 2 /hpf (0-5)
[2021-07-04] MEDS ORDERED: LORazepam 1 MG TAB PO STA (12:37)
[2021-07-04 13:21] VITALS: BP 176/82; PULSE 75
== END 2021-07-04 13:21 | disposition home or self-care (01) ==
LOC: EC 10:11
DX: R63.0 Anorexia (principal); R68.2 Dry mouth, unspecified; R11.2 Nausea with vomiting, unspecified; T43.215A Adverse effect of selective serotonin and norepinephrine reuptake inhibitors, initial encounter; E78.5 Hyperlipidemia, unspecified; M79.7 Fibromyalgia; I10 Essential (primary) hypertension; J45.909 Unspecified asthma, uncomplicated; K21.9 Gastro-esophageal reflux disease without esophagitis; M19.90 Unspecified osteoarthritis, unspecified site; Z79.51 Long term (current) use of inhaled steroids; Z79.82 Long term (current) use of aspirin; Z79.899 Other long term (current) drug therapy; Z88.1 Allergy status to other antibiotic agents; Z91.011 Allergy to milk products; Z91.018 Allergy to other foods
CPT/HCPCS: 36415; 80053; 81001; 82150; 83690; 84484; 85025; 93005; 96360; 96361; 99284

== ENCOUNTER → 2021-07-13 | Outpatient (CLI) | payer MEDICARE ==
--- NOTE | 2021-07-13 14:06 | XR ---
EXAMINATION TYPE: XR Hip Bilateral and AP pelvis DATE OF EXAM: 07/13/2021 COMPARISON: CT 10/07/2015 HISTORY: Z98.1 arthrodesis TECHNIQUE: A single AP view of the pelvis is obtained. Two views of the right and left hip are obtain ed. FINDINGS: There is no acute fracture/dislocation evident in the pelvis. Marginal spurring present at the femoral heads The sacroiliac joints appear symmetric and unremarkable. Sclerotic density is pre sent in the right pubic bone is stable there are small calcifications at the level of the femoral hea ds laterally, possible chondrocalcinosis. Postop changes are noted to the L4-5 level status post post erior fusion, there is an underlying scoliosis, degenerative disc disease. Two views of bilateral hips show no acute fracture or dislocation. No focal lytic or sclerotic lesio n seen in the proximal bilateral femurs. The overlying soft tissue is unremarkable. IMPRESSION: There is no acute fracture or dislocation in the pelvis or bilateral hip. 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
== END | disposition home or self-care (01) ==
LOC: RADXRMAIN 13:10
PROVIDERS: ATTEND Specialist
DX: Z98.1 Arthrodesis status (principal)
CPT/HCPCS: 73521

== ENCOUNTER → 2021-07-13 | Outpatient (CLI) | payer MEDICARE | END | disposition home or self-care (01) | LOC: LABWHC1 13:37 | PROVIDERS: ATTEND Internal Medicine Critical Care Medicine | DX: J45.909 Unspecified asthma, uncomplicated (principal) | CPT/HCPCS: 36415; 82785; 85008 ==

== ENCOUNTER → 2021-07-23 | Outpatient (CLI) | payer MEDICARE ==
--- NOTE | 2021-07-24 02:30 | MR ---
EXAMINATION TYPE: MR lumbar spine wo con DATE OF EXAM: 07/23/2021 COMPARISON: 03/27/2020 HISTORY: Low back pain into buttocks and left lower extremity, traumatic scoliosis Multiplanar multiecho imaging of the lumbar spine without contrast. Lumbar vertebra have normal alignment. There is degenerative disc space narrowing in the lumbar spine mainly at L3-4 and L4-5. There is small posterior disc herniation in the midline at L5-S1. There is small posterior disc herniation centrally and towards left side at L3-4. There is hypertrophic multil evel facet arthropathy. There is posterior fusion surgery with screws at L4-5. There is some lateral recess stenosis at L3-4 due to facet arthropathy. There is apparent left-sided laminectomy at L4. The re is no lumbar paraspinal mass. There is no compression fracture. IMPRESSION: Posterior disc herniations as above at L3-4 and L5-S1 without change. Mild lateral recess stenosis at L4-5 without change. No fracture seen. Bilateral L3-4 neural foraminal narrowing due to disc space n arrowing and facet arthropathy.
== END | disposition home or self-care (01) ==
LOC: RADMRIMAIN 15:03
PROVIDERS: ATTEND Specialist
DX: M51.26 Other intervertebral disc displacement, lumbar region (principal); M48.061 Spinal stenosis, lumbar region without neurogenic claudication; M47.896 Other spondylosis, lumbar region; Z98.1 Arthrodesis status
CPT/HCPCS: 72148

== ENCOUNTER → 2021-08-06 | Outpatient (CLI) | payer MEDICARE ==
[2021-08-06 15:22] LABS: African American GFR (CKD) >90 (>60 ml/min/1.73 sqM); Blood Urea Nitrogen 10 mg/dL (7-17); Non-African American GFR(CKD) >90 (>60 ml/min/1.73 sqM)
--- NOTE | 2021-08-07 09:21 | CT ---
EXAMINATION TYPE: CT ChestAbdPelvis w con DATE OF EXAM: 08/06/2021 COMPARISON: 11/12/2019 and June 11, 2018 HISTORY: mass of IVC, f/u CT DLP: 1087.5 mGycm CONTRAST: CT scan of the chest, abdomen and pelvis is performed with Oral Contrast and with IV Contrast, patien t injected with 100 mL of Isovue 300. CT Chest: LUNGS: The lungs are clear and free of infiltrate or atelectasis. No pulmonary nodule or mass is det ected. No pleural effusion or CT evidence of interstitial lung disease. 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 Thoracic aorta is of normal caliber. The heart is not enlarged. No evidence for me diastinal mass or adenopathy. HILAR STRUCTURES: No evidence for mass. No hilar adenopathy is appreciated. OTHER: No significant abnormality. CONTRAST CT ABDOMEN AND PELVIS FINDINGS: LIVER/GB: No calcified gallstones. No space occupying hepatic lesion. Biliary tree is of normal ca liber. PANCREAS: No inflammation. No distinct mass. SPLEEN: No splenic enlargement. No lesion seen. ADRENALS: No nodule. No thickening. KIDNEYS/BLADDER: No hydronephrosis. No nephrolithiasis. No distinct solid renal mass. Stable renal cyst right kidney measuring 2.5 cm. BOWEL: Normal appendix. Normal bowel caliber. No inflammation. GENITAL ORGANS: Hysterectomy changes. LYMPH NODES: No greater than 1cm abdominal or pelvic lymph nodes are appreciated. AORTA: No significant abnormality. OSSEOUS STRUCTURES: Postoperative changes lumbar spine. OTHER: No significant additional abnormality is seen. IMPRESSION: 1. Stable dilatation of the intrathoracic IVC.
== END | disposition home or self-care (01) ==
LOC: RADCTMAIN 14:39
PROVIDERS: ATTEND Surgery
DX: I77.810 Thoracic aortic ectasia (principal); R22.2 Localized swelling, mass and lump, trunk
CPT/HCPCS: 82565; 84520; 71260; 74177; 36415; Q9967

== ENCOUNTER → 2021-11-05 | Outpatient (CLI) | payer MEDICARE ==
[2021-11-05 11:41] LABS: African American GFR (CKD) 110.3 (60.0-200.0); Albumin 4.1 g/dL (3.8-4.9); Albumin/Globulin Ratio 1.81 (1.60-3.17); Anion Gap 9.5 mmol/L (10.00-18.00); BUN/Creat Ratio 24.25 Ratio (12.00-20.00); Blood Urea Nitrogen 12.2 mg/dL (9.0-27.0); Calcium 10.2 mg/dL (8.7-10.3); Carbon Dioxide 27.7 mmol/L (20.0-27.5); Globulin 2.2 g/dL (1.6-3.3); Non-African American GFR(CKD) 95.2 (60.0-200.0); Potassium 4.7 mmol/L (3.5-5.5); Total Bilirubin 0.4 mg/dL (0.30-1.20); Total Protein 6.3 g/dL (6.2-8.2)
== END | disposition home or self-care (01) ==
LOC: LABWHC1 07:32
PROVIDERS: ATTEND Internal Medicine
DX: E27.40 Unspecified adrenocortical insufficiency (principal); M81.0 Age-related osteoporosis without current pathological fracture
CPT/HCPCS: 36415; 80053; 82024; 82523; 82533

== ENCOUNTER → 2021-11-05 | Outpatient (CLI) | payer MEDICARE ==
--- NOTE | 2021-11-06 07:54 | MM ---
Reason for exam: additional evaluation requested from prior study. Last mammogram was performed 1 year and 2 months ago. History: Patient is postmenopausal. Family history of premenopausal breast cancer in mother at age 50. Reductions of both breasts, July 2005. Benign stereotactic core biopsy of the right breast, February 23, 2003. Benign stereotactic core biopsy of the left breast, August 28, 2000. Benign core biopsy of the left breast. Benign core biopsy of the right breast. Benign excisional biopsy of the right breast. Took estrogen for 20 years beginning at age 47. Physical Findings: Nurse did not find any significant physical abnormalities on exam. MG 3D Diag Mammo W/Cad CHARY Bilateral CC and MLO view(s) were taken. Prior study comparison: September 13, 2020, bilateral MG 3d diag mammo w/cad CHARY. June 09, 2019, bilateral MG 3d diag mammo w/cad CHARY. There are scattered fibroglandular densities. Previous mammotome biopsy in the right and left breast. No significant new findings when compared with previous films. These results were verbally communicated with the patient and result sheet given to the patient on 11/05/21. ASSESSMENT: Benign, BI-RAD 2 RECOMMENDATION: Follow-up diagnostic mammogram of both breasts in 1 year.
== END | disposition home or self-care (01) ==
LOC: RADMAMWWP 14:50
PROVIDERS: ATTEND Internal Medicine Critical Care Medicine
DX: N64.4 Mastodynia (principal)
CPT/HCPCS: 77066; G0279; 77062

== ENCOUNTER 2022-01-10 13:51 | Emergency (ER) | payer MEDICARE ==
[2022-01-10 13:58] VITALS: BP 186/73; PULSE 76; RESP 18; TEMP 97.4
[2022-01-10] MEDS ORDERED: SODIUM CHLORIDE 0.9% 500 ML 500 ML IV STA (14:18)
[2022-01-10] MEDS ORDERED: ACETAMINOPHEN TAB 325 MG TAB PO STA (14:40)
--- NOTE | 2022-01-10 14:42 | ED ---
Abdominal Pain HPI - General Chief Complaint: Abdominal Pain Stated Complaint: Abd/R hip pain Time Seen by Provider: 01/10/22 13:59 Source: patient, RN notes reviewed Mode of arrival: ambulatory Limitations: no limitations - History of Present Illness Initial Comments: This is a 76 year old female who presents to the emergency department for 2 days of abdominal pain. This is described as being in the RLQ and right flank. The pain occurs intermittently, however when it is present it is very severe and described as sharp and stabbing. She was concerned about a pulled muscle initially and went to a massage therapist yesterday, which offered no relief. She has a history of a ventral hernia repair, hysterectomy, and abdominoplasty. Denies any dysuria or hematuria. She has had intermittent nausea but no vomiting as well as a mild headache. Denies any fevers, chills, or changes in bowel movements. MD Complaint: abdominal pain, flank pain Onset/Timin -: days(s) Location: RLQ, R flank Quality: stabbing, sharp Consistency: intermittent Improves With: nothing Associated Symptoms: nausea - Related Data Home Medications Medication Instructions Recorded Confirmed Montelukast [Singulair] 10 mg PO HS 04/13/15 01/10/22 Rosuvastatin Calcium [Crestor] 10 mg PO HS 08/09/19 01/10/22 Azelastine HCl [Astepro] 2 spray EA NOSTRIL BID 08/19/19 01/10/22 Ergocalciferol [Vitamin D2 50,000 unit PO TU 08/19/19 01/10/22 (DRISDOL)] Acetaminophen/Diphenhydramine 2 tab PO HS 04/28/20 01/10/22 [Tylenol PM 500-25mg] Aspirin EC [Ecotrin Low Dose] 81 mg PO HS 04/28/20 01/10/22 Budesonide/Formoterol Fumarate 2 puff INHALATION RT-BID 04/28/20 01/10/22 [Symbicort 160-4.5 Mcg Inhaler] Pregabalin [Lyrica] 50 mg PO HS 04/28/20 01/10/22 dilTIAZem HCL [Diltiazem HCl] 30 mg PO HS 04/28/20 01/10/22 Pregabalin [Lyrica] 25 mg PO DAILY 05/18/21 01/10/22 Albuterol Inhaler [Ventolin Hfa 1 - 2 puff INHALATION RT-QID PRN 07/04/21 01/10/22 Inhaler] Famotidine [Pepcid] 20 mg PO BID 01/10/22 01/10/22 Allergies Allergy/AdvReac Type Severity Reaction Status Date / Time levofloxacin [From Levaquin] Allergy Rash/Hives Verified 01/10/22 14:51 lacosamide [From Vimpat] AdvReac Confusion Verified 01/10/22 14:51 Milk Containing Products AdvReac avoids Verified 01/10/22 14:51 [Dairy] dairy products wheat AdvReac avoids Verified 01/10/22 14:51 wheat products processed foods AdvReac avoids Uncoded 01/10/22 14:51 processed foods Review of Systems ROS Statement: Those systems with pertinent positive or pertinent negative responses have been documented in the HPI. ROS Other: All systems not noted in ROS Statement are negative. Constitutional: Denies: fever, chills ENT: Denies: ear pain, throat pain Respiratory: Denies: cough, dyspnea Cardiovascular: Denies: chest pain, palpitations Gastrointestinal: Reports: abdominal pain, nausea. Denies: vomiting, diarrhea, constipation, hematemesis, hematochezia Genitourinary: Denies: urgency, dysuria, frequency, hematuria Musculoskeletal: Reports: back pain Skin: Denies: rash, lesions Neurological: Reports: headache Past Medical History Past Medical History: Asthma, Deep Vein Thrombosis (DVT), Eye Disorder, GERD/Reflux, Hyperlipidemia, Hypertension, Osteoarthritis (OA), Skin Disorder, Sleep Apnea/CPAP/BIPAP, Thyroid Disorder Additional Past Medical History / Comment(s): Current event monitor for tachycardia/palpitations, pyloric sphincer ulcer with surgery, pyloric stenosis, IBS, adrenal insufficiency r/t predatory animal exterminator steroid use, arthritis in multiple joints, chronic cervical pain, chronic back pain, DDD, mild HENRY-no device, thyroid nodules/hypothyroid, coronary cat scan showed 25-50% blockage, neurocar diogenic hypotension, 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 History of Any Multi-Drug Resistant Organisms: C-DIFF Date of last positivie culture/infection: 2018-march MDRO Source:: stool Past Surgical History: Adenoidectomy, Breast Surgery, Heart Catheterization, Hysterectomy, Joint Replacement, Orthopedic Surgery, Tonsillectomy Additional Past Surgical History / Comment(s): Spinal fusion-recent/laminectomy, epidural back injections, L knee arthroscopy, L shoulder arthroscopy for rotator cuff/bone spurs, EGDs/dilatations for pyloric stenosis, pyloroplasty d/t ulcer, esophageal manometry, colonoscopy, bladder cystogram, ventral hernia, L breast benign bx, bilateral breast reductions, abdominoplasty, bilateral cataract removals/lens implants. Left total knee january 2021 Past Anesthesia/Blood Transfusion Reactions: No Reported Reaction Additional Past Anesthesia/Blood Transfusion Reaction / Comment(s): takes a little while to wake up.no hx blood transfusion. Past Psychological History: No Psychological Hx Reported Smoking Status: Never smoker Past Alcohol Use History: None Reported Past Drug Use History: None Reported - Past Family History Brother(s) Family Medical History: Coronary Artery Disease (CAD) Additional Family Medical History / Comment(s): heart stents,2nd brother CABG Mother Family Medical History: Cancer, Hyperlipidemia, Hypertension Additional Family Medical History / Comment(s): Mother of ovarian cancer at the age of 69yrs. She also had breast cancer Father Family Medical History: Coronary Artery Disease (CAD), Hyperlipidemia, Hypertension Additional Family Medical History / Comment(s): quad bypass in his 40's General Exam Limitations: no limitations General appearance: alert, in no apparent distress Head exam: Present: atraumatic, normocephalic, normal inspection Respiratory exam: Present: normal lung sounds bilaterally. Absent: respiratory distress, wheezes, rales, rhonchi, stridor Cardiovascular Exam: Present: regular rate, normal rhythm, normal heart sounds. Absent: systolic murmur, diastolic murmur, rubs, gallop, clicks GI/Abdominal exam: Present: soft, tenderness (RLQ), normal bowel sounds. Absent: distended, guarding, rebound, rigid, organomegaly, mass Back exam: Present: normal inspection, full ROM. Absent: tenderness, CVA t enderness (R), CVA tenderness (L) Neurological exam: Present: alert, oriented X3, CN II-XII intact Psychiatric exam: Present: normal affect, normal mood Skin exam: Present: warm, dry, intact, normal color. Absent: rash Course Vital Signs 01/10/22 13:52 Temperature 97.4 F L Pulse Rate 76 Respiratory 18 Rate Blood Pressure 186/73 O2 Sat by Pulse 99 Oximetry Medical Decision Making - Medical Decision Making This is a 76 year old female who presents to the emergency department for RLQ and right flank pain. Lab work unremarkable aside from moderate RBCs in the urine. Patient states that this is chronic and she has had full workups regarding this issue. CT scan abd/pelvis was unremarkable. Patient advised that no clear cause of her pain was found during today's workup. This may be musculoskeletal in origin. Advised Tylenol and Motrin for pain as well as using a hot pack. Return precautions reviewed in depth, the patient is instructed to return to the emergency department if symptoms worsen or do not improve. Patient verbalized understanding. This case was discussed in detail with the attending ED physician. Presentation, findings, and treatment plan discussed in detail as well. - Lab Data Result diagrams: 01/10/22 Unknown 01/10/22 Unknown Lab Results 01/10/22 01/10/22 01/10/22 Range/Units 14:49 Unknown Unknown WBC 7.5 (3.8-10.6) k/uL RBC 3.83 (3.80-5.40) m/uL Hgb 12.8 (11.4-16.0) gm/dL Hct 38.2 (34.0-46.0) % MCV 99.7 (80.0-100.0) fL MCH 33.5 (25.0-35.0) pg MCHC 33.6 (31.0-37.0) g/dL RDW 12.4 (11.5-15.5) % Plt Count 277 (150-450) k/uL MPV 7.1 Neutrophils % 69 % Lymphocytes % 23 % Monocytes % 5 % Eosinophils % 1 % Basophils % 1 % Neutrophils # 5.2 (1.3-7.7) k/uL Lymphocytes # 1.7 (1.0-4.8) k/uL Monocytes # 0.4 (0-1.0) k/uL Eosinophils # 0.1 (0-0.7) k/uL Basophils # 0.1 (0-0.2) k/uL Sodium 137 (137-145) mmol/L Potassium 3.8 (3.5-5.1) mmol/L Chloride 104 (98-107) mmol/L Carbon Dioxide 26 (22-30) mmol/L Anion Gap 7 mmol/L BUN 13 (7-17) mg/dL Creatinine 0.63 (0.52-1.04) mg/dL Est GFR (CKD-EPI)AfAm >90 (>60 ml/min/1.73 sqM) Est GFR (CKD-EPI)NonAf 89 (>60 ml/min/1.73 sqM) Glucose 98 (74-99) mg/dL Plasma Lactic Acid Walter (0.7-2.0) mmol/L Calcium 10.6 H (8.4-10.2) mg/dL Total Bilirubin 1.0 (0.2-1.3) mg/dL AST 28 (14-36) U/L ALT 16 (4-34) U/L Alkaline Phosphatase 62 (38-126) U/L Total Protein 7.0 (6.3-8.2) g/dL Albumin 4.1 (3.5-5.0) g/dL Amylase 70 (30-110) U/L Lipase 59 (23-300) U/L Urine Color Light Yellow Urine Appearance Clear (Clear) Urine pH 6.5 (5.0-8.0) Ur Specific Roland 1.004 (1.001-1.035) Urine Protein Negative (Negative) Urine Glucose (UA) Negative (Negative) Urine Ketones Negative (Negative) Urine Blood Moderate H (Negative) Urine Nitrite Negative (Negative) Urine Bilirubin Negative (Negative) Urine Urobilinogen <2.0 (<2.0) mg/dL Ur Leukocyte Esterase Negative (Negative) Urine RBC 1 (0-5) /hpf Urine WBC <1 (0-5) /hpf 01/10/22 Range/Units Unknown WBC (3.8-10.6) k/uL RBC (3.80-5.40) m/uL Hgb (11.4-16.0) gm/dL Hct (34.0-46.0) % MCV (80.0-100.0) fL MCH (25.0-35.0) pg MCHC (31.0-37.0) g/dL RDW (11.5-15.5) % Plt Count (150-450) k/uL MPV Neutrophils % % Lymphocytes % % Monocytes % % Eosinophils % % Basophils % % Neutrophils # (1.3-7.7) k/uL Lymphocytes # (1.0-4.8) k/uL Monocytes # (0-1.0) k/uL Eosinophils # (0-0.7) k/uL Basophils # (0-0.2) k/uL Sodium (137-145) mmol/L Potassium (3.5-5.1) mmol/L Chloride (98-107) mmol/L Carbon Dioxide (22-30) mmol/L Anion Gap mmol/L BUN (7-17) mg/dL Creatinine (0.52-1.04) mg/dL Est GFR (CKD-EPI)AfAm (>60 ml/min/1.73 sqM) Est GFR (CKD-EPI)NonAf (>60 ml/min/1.73 sqM) Glucose (74-99) mg/dL Plasma Lactic Acid Walter 0.7 (0.7-2.0) mmol/L Calcium (8.4-10.2) mg/dL Total Bilirubin (0.2-1.3) mg/dL AST (14-36) U/L ALT (4-34) U/L Alkaline Phosphatase (38-126) U/L Total Protein (6.3-8.2) g/dL Albumin (3.5-5.0) g/dL Amylase (30-110) U/L Lipase (23-300) U/L Urine Color Urine Appearance (Clear) Urine pH (5.0-8.0) Ur Specific Roland (1.001-1.035) Urine Protein (Negative) Urine Glucose (UA) (Negative) Urine Ketones (Negative) Urine Blood (Negative) Urine Nitrite (Negative) Urine Bilirubin (Negative) Urine Urobilinogen (<2.0) mg/dL Ur Leukocyte Esterase (Negative) Urine RBC (0-5) /hpf Urine WBC (0-5) /hpf Disposition Clinical Impression: RLQ abdominal pain, Right flank pain Disposition: HOME SELF-CARE Instructions (If sedation given, give patient instructions): Abdominal Pain (ED), Flank Pain (ED) Additional Instructions: Return to the emergency department if symptoms worsen or do not improve. Follow up with your primary care provider as scheduled or sooner if symptoms warrant. Is patient prescribed a controlled substance at d/c from ED?: No Referrals: Robson Curtis DO [Primary Care Provider] - 1-2 days
[2022-01-10 14:49] LABS: Basophils % (A) 1 %; Eosinophils # (A) 0.1 k/uL (0-0.7); Eosinophils % (A) 1 %; HCT 38.2 % (34.0-46.0); HGB 12.8 gm/dL (11.4-16.0); Lymphocytes # (A) 1.7 k/uL (1.0-4.8); Lymphocytes % (A) 23 %; MCH 33.5 pg (25.0-35.0); MCHC 33.6 g/dL (31.0-37.0); MCV 99.7 fL (80.0-100.0); Mean Platelet Volume 7.1; Monocytes # (A) 0.4 k/uL (0-1.0); Monocytes % (A) 5 %; Neutrophils # (A) 5.2 k/uL (1.3-7.7); Neutrophils % (A) 69 %; Platelet Count 277 k/uL (150-450); RBC 3.83 m/uL (3.80-5.40); RDW 12.4 % (11.5-15.5); WBC 7.5 k/uL (3.8-10.6)
[2022-01-10 14:50] LABS: Basophils # (A) 0.1 k/uL (0-0.2)
[2022-01-10 15:03] LABS: Appearance,Urine Clear (Clear); Bilirubin,Urine Negative (Negative); Blood,Urine Moderate (Negative); Color,Urine Light Yellow; Glucose,Urine (UA) Negative (Negative); Ketones,Urine Negative (Negative); Leukocyte Esterase,Urine Negative (Negative); Nitrite,Urine Negative (Negative); PH, Urine 6.5 (5.0-8.0); Protein,Urine Negative (Negative); RBC,Urine 1 /hpf (0-5); Specific Gravity,Urine 1.004 (1.001-1.035); Urobilinogen,Urine <2.0 mg/dL (<2.0); WBC,Urine <1 /hpf (0-5)
[2022-01-10 15:06] LABS: African American GFR (CKD) >90 (>60 ml/min/1.73 sqM); Anion Gap 7 mmol/L; Blood Urea Nitrogen 13 mg/dL (7-17); Carbon Dioxide 26 mmol/L (22-30); Chloride 104 mmol/L (98-107); Glucose 98 mg/dL (74-99); Potassium 3.8 mmol/L (3.5-5.1); Sodium 137 mmol/L (137-145)
[2022-01-10 15:07] LABS: ALT 16 U/L (4-34); AST 28 U/L (14-36); Albumin 4.1 g/dL (3.5-5.0); Alkaline Phosphatase 62 U/L (38-126); Amylase 70 U/L (30-110); Calcium 10.6 mg/dL (8.4-10.2); Lipase 59 U/L (23-300); Non-African American GFR(CKD) 89 (>60 ml/min/1.73 sqM)
--- NOTE | 2022-01-10 15:59 | CT ---
EXAMINATION TYPE: CT abdomen pelvis w con DATE OF EXAM: 01/10/2022 COMPARISON: CT dated 08/06/2021 HISTORY: Right lower quadrant and right flank pain. CT DLP: 1208.1 mGycm Automated exposure control for dose reduction was used. TECHNIQUE: Helical acquisition of images was performed from the lung bases through the pelvis. CONTRAST: Performed without Oral Contrast and with IV Contrast, patient injected with 100 mL of Isovue 300. FINDINGS: LUNG BASES: Stable dilatation of the intrathoracic IVC. LIVER/GB: No significant abnormality is appreciated. PANCREAS: Atrophic with fatty infiltration of the pancreatic head SPLEEN: No significant abnormality is seen. ADRENALS: No significant abnormality is seen. KIDNEYS: Multiple variable sized bilateral renal cysts without suspicious feature. Unremarkable kidne ys otherwise. FREE AIR: No free air is visualized. RETROPERITONEAL ADENOPATHY: No pathologically enlarged REPRODUCTIVE ORGANS: Previous hysterectomy. No adnexal mass. URINARY BLADDER: Questionable minimal bladder neck descent/cystocele, otherwise unremarkable urinary bladder. PELVIC ADENOPATHY: No pathologically enlarged OSSEOUS STRUCTURES: Degenerative changes of the hip joints. Osteopenia. L4-5 fixation using 2 rods a nd 4 screws. Degenerative changes at L3-4 level. The right L4 screw is seen passing through the dusty x of the right side of L4, stable compared to the previous. Levoscoliosis of the lower lumbar spine. BOWEL: Unremarkable nondistended stomach, duodenum and small bowel. Scattered uncomplicated colonic diverticulosis with mild to moderate fecal loading of the colon. Normal appendix. OTHER: No sizable ascites. Scattered mild arterial atherosclerotic calcifications. IMPRESSION: No definite acute abnormality is seen in the abdomen or the pelvis. Incidental findings as detailed a anselmo.
== END 2022-01-10 16:53 | disposition home or self-care (01) ==
LOC: EC 13:51
DX: R10.31 Right lower quadrant pain (principal); J45.909 Unspecified asthma, uncomplicated; I10 Essential (primary) hypertension; Z88.1 Allergy status to other antibiotic agents; Z91.011 Allergy to milk products; Z88.8 Allergy status to other drugs, medicaments and biological substances; Z91.018 Allergy to other foods
CPT/HCPCS: 36415; 80053; 82150; 83605; 83690; 85025; 81001; 74177; 99284; Q9967

== ENCOUNTER → 2022-05-03 | Outpatient (CLI) | payer MEDICARE ==
[2022-05-03 11:11] LABS: African American GFR (CKD) 104.1 (60.0-200.0); Albumin/Globulin Ratio 1.74 (1.60-3.17); Anion Gap 8.6 mmol/L (10.00-18.00); BUN/Creat Ratio 18.33 Ratio (12.00-20.00); Calcium 10.8 mg/dL (8.7-10.3); Carbon Dioxide 28.4 mmol/L (20.0-27.5); Globulin 2.3 g/dL (1.6-3.3); Non-African American GFR(CKD) 89.8 (60.0-200.0); Potassium 4.3 mmol/L (3.5-5.5); Total Bilirubin 0.4 mg/dL (0.30-1.20); Total Protein 6.3 g/dL (6.2-8.2)
== END | disposition home or self-care (01) ==
LOC: LABWHC1 07:00
PROVIDERS: ATTEND Internal Medicine
DX: E27.40 Unspecified adrenocortical insufficiency (principal); M81.0 Age-related osteoporosis without current pathological fracture
CPT/HCPCS: 36415; 80053; 82024; 82523; 82533

== ENCOUNTER → 2022-05-07 | Outpatient (CLI) | payer MEDICARE ==
--- NOTE | 2022-05-08 04:41 | US ---
EXAMINATION TYPE: US venous doppler duplex LE LT DATE OF EXAM: 05/07/2022 12:14 PM COMPARISON: 05/23/2021 CLINICAL HISTORY: 76-year-old female [id number], [id number] SWELLING OF LEFT LOWER LIMB. Left leg swelling, hi story of DVT SIDE PERFORMED: Left TECHNIQUE: The lower extremity deep venous system is examined utilizing real time linear array sonog esteban with graded compression, doppler sonography and color-flow sonography. FINDINGS: VESSELS IMAGED: Common Femoral Vein Deep Femoral Vein Greater Saphenous Vein * Femoral Vein Popliteal Vein Small Saphenous Vein * Proximal Calf Veins (* superficial vessels) Left Leg: Appears negative for DVT IMPRESSION: No evidence for DVT within the left lower extremity imaged from the groin to the upper calf.
== END | disposition home or self-care (01) ==
LOC: RADUSWWP 11:44
PROVIDERS: ATTEND Internal Medicine Critical Care Medicine
DX: M79.662 Pain in left lower leg (principal); R22.42 Localized swelling, mass and lump, left lower limb

== ENCOUNTER → 2022-11-04 | Outpatient (CLI) | payer MEDICARE ==
[2022-11-04 16:32] LABS: Chol/HDL Ratio 2.37 Ratio; LDL Cholesterol,Calculated 102.8 mg/dL (0.0-131.0); VLDL Calculation 19.72 mg/dL (5.00-40.00)
== END | disposition home or self-care (01) ==
LOC: LABWHC1 11:01
PROVIDERS: ATTEND Internal Medicine
DX: I10 Essential (primary) hypertension (principal); Z86.16 Personal history of COVID-19; E78.5 Hyperlipidemia, unspecified; I25.10 Atherosclerotic heart disease of native coronary artery without angina pectoris; R00.2 Palpitations
CPT/HCPCS: 36415; 80061

== ENCOUNTER → 2022-11-04 | Outpatient (CLI) | payer MEDICARE ==
--- NOTE | 2022-11-04 11:42 | US ---
EXAMINATION TYPE: US abdomen complete DATE OF EXAM: 11/04/2022 COMPARISON: CT, US CLINICAL HISTORY: R14.0 ABDOMINAL DISTENSION (GASEOUS). Distension. Patient states ascites was seen o n outside echo. Hx renal cyst, pyloroplasty 10 years ago, hx hernia surgery. Left-sided abdominal анна n. TECHNIQUE: Multiple sonographic images of the abdomen are obtained. FINDINGS: EXAM MEASUREMENTS: Liver Length: 13.1 cm Gallbladder Wall: 0.21 cm CBD: 0.42 cm Spleen: Obscured Right Kidney: 11.1 x 6.4 x 5.6 cm Left Kidney: 11.7 x 5.9 x 6.4 cm MAKE UP ARTIST NOTES: Limited due to gas. Pancreas: Not well seen. Liver: Appears heterogeneous. Gallbladder: Appears anechoic. Measures 3.8 cm in transverse. Evidence for sonographic Aguayo's sign: No CBD: Appears wnl Spleen: Obscured Right Kidney: Anechoic area seen medially at mid-lower pole: 2.3 x 2.3 x 2.4 cm. Subcentimeter addit ional anechoic area seen laterally. Left Kidney: Irregular contour, similar to prior CT 01/10/2022. Anechoic area seen lower pole: 2.3 x 2. 6 x 1.2 cm. Upper IVC: Appears wnl Abd Aorta: Appears wnl No ascites seen at this time. IMPRESSION: No evidence for acute process. Right renal cyst.
== END | disposition home or self-care (01) ==
LOC: RADUSWWP 10:20
PROVIDERS: ATTEND Internal Medicine Gastroenterology
DX: N28.1 Cyst of kidney, acquired (principal); R14.0 Abdominal distension (gaseous); R18.8 Other ascites
CPT/HCPCS: 76700

== ENCOUNTER → 2023-04-19 | Outpatient (CLI) | payer MEDICARE ==
[2023-04-19 13:55] LABS: Calcium 11.6 mg/dL (8.7-10.3); Carbon Dioxide 28.4 mmol/L (21.6-31.8); Chloride 108 mmol/L (96-109); Creatine Kinase 85 U/L (26-186); Glucose 92 mg/dL (70-110); Potassium 3.8 mmol/L (3.5-5.5); Sodium 146 mmol/L (135-145)
[2023-04-21 11:43] LABS: Albumin 4.3 d/dL (3.8-4.9); Total Bilirubin 0.6 mg/dL (0.3-1.2); Total Protein 6.6 d/dL (6.2-8.2)
== END | disposition home or self-care (01) ==
LOC: LABWHC1 08:17
PROVIDERS: ATTEND Psychiatry & Neurology Neurology
DX: E27.40 Unspecified adrenocortical insufficiency (principal); E21.0 Primary hyperparathyroidism; E55.9 Vitamin D deficiency, unspecified; M81.0 Age-related osteoporosis without current pathological fracture; M62.81 Muscle weakness (generalized)
CPT/HCPCS: 36415; 80048; 82024; 82040; 82247; 82306; 82533; 82550; 84075; 84155; 84450; 84460

== ENCOUNTER → 2023-05-20 | Day surgery (SDC) | payer MEDICARE | LOC: MMGPCCSM 12:00 → MPHPCCSM 12:00 | PROVIDERS: ATTEND Internal Medicine Critical Care Medicine | DX: M54.2 Cervicalgia (principal); R50.9 Fever, unspecified; D72.829 Elevated white blood cell count, unspecified; G47.30 Sleep apnea, unspecified; R03.0 Elevated blood-pressure reading, without diagnosis of hypertension; E27.40 Unspecified adrenocortical insufficiency; K21.9 Gastro-esophageal reflux disease without esophagitis; K58.9 Irritable bowel syndrome, unspecified; F10.90 Alcohol use, unspecified, uncomplicated; Z86.711 Personal history of pulmonary embolism; Z86.718 Personal history of other venous thrombosis and embolism; Z86.16 Personal history of COVID-19; Z79.01 Long term (current) use of anticoagulants; Z79.51 Long term (current) use of inhaled steroids; Z79.899 Other long term (current) drug therapy; Z88.1 Allergy status to other antibiotic agents; Z91.011 Allergy to milk products; Z91.018 Allergy to other foods; Z88.8 Allergy status to other drugs, medicaments and biological substances | CPT/HCPCS: 99214 ==

== ENCOUNTER → 2023-06-30 | Outpatient (CLI) | payer MEDICARE ==
[2023-06-30 11:12] LABS: BUN/Creat Ratio 14.57 Ratio (12.00-20.00); Blood Urea Nitrogen 10.2 mg/dL (9.0-27.0); Calcium 11.4 mg/dL (8.7-10.3); Carbon Dioxide 27.5 mmol/L (21.6-31.8); Chloride 108 mmol/L (96-109); Glucose 91 mg/dL (70-110); Potassium 4.9 mmol/L (3.5-5.5); Sodium 144 mmol/L (135-145)
== END | disposition home or self-care (01) ==
LOC: LABWHC1 06:57
DX: E21.0 Primary hyperparathyroidism (principal)
CPT/HCPCS: 36415; 80048; 82024; 82533; 83970

== ENCOUNTER → 2024-01-02 | Outpatient (CLI) | payer MEDICARE | END | disposition home or self-care (01) | LOC: LABWHC1 12:25 | PROVIDERS: ATTEND Internal Medicine Critical Care Medicine | DX: R05.9 Cough, unspecified (principal); R50.9 Fever, unspecified; J32.9 Chronic sinusitis, unspecified; Z20.822 Contact with and (suspected) exposure to COVID-19 | CPT/HCPCS: 87636 ==

== ENCOUNTER → 2024-01-23 | Outpatient (CLI) | payer MEDICARE ==
--- NOTE | 2024-01-23 11:44 | MM ---
Reason for Exam: Clinical finding. Last screening mammogram was performed 12 month(s) ago. Indicated Problems: Pain of both sides. Patient History: Menarche at age 13. First Full-Term at age 24. Left ovary removed at age 47. Right ovary removed at age 47. Hysterectomy at age 47. Postmenopausal. Patient has history of breast feeding. Estrogen for 20 years from age 47 until age 67. 07/2005, Bilateral Reduction. Benign Core Biopsy on the right side. Benign Core Biopsy on the left side. Benign Excisional Biopsy on the right side. 02/23/2003, Benign Stereotactic Core Biopsy on the right side. 08/28/2000, Benign Stereotactic Core Biopsy on the left side. Mother had breast cancer, age 50. Risk Values: Darby 5 year model risk: 5.5%. NCI Lifetime model risk: 10.9%. Prior Study Comparison: 03/02/2018 Bilateral Diagnostic Mammogram, [facility]. 06/09/2019 Bilateral Diagnostic Mammogram, [facility]. 09/13/2020 Bilateral Diagnostic Mammogram, [facility]. 11/05/2021 Bilateral Diagnostic Mammogram, [facility]. 01/21/2023 Bilateral MG 3D diag mammo w/cad CHARY, [facility]. Tissue Density: There are scattered areas of fibroglandular density. Findings: Analyzed By CAD. Microclip in either breast from prior biopsies. Scattered benign oil cyst calcifications are present. Asymmetric density subareolar left breast is unchanged. Skin markers along the inferior aspect of both breasts. No underlying discrete abnormality is seen to correspond to the patient's cutaneous findings. Overall Assessment: Benign, BI-RAD 2 Management: Screening Mammogram of both breasts in 1 year. Further clinical management of patient's areas of redness and tenderness. Results were given to the patient verbally at the time of exam. Patient should continue monthly self-breast exams. A clinical breast exam by your physician is recommended on an annual basis. This exam should not preclude additional follow-up of suspicious palpable abnormalities. Note on Darby scores and lifetime risk: 1. A Darby score greater than 3% is considered moderate risk. If this is the case, consider specialist referral to assess eligibility for a risk reducing agent. 2. If overall lifetime risk for the development of breast cancer is 20% or higher, the patient may qualify for future screening with alternating mammogram and breast MRI. Electronically signed and approved by: Eliezer Rice M.D. Radiologist
== END | disposition home or self-care (01) ==
LOC: RADMAMWWP 10:46
PROVIDERS: ATTEND Internal Medicine Critical Care Medicine
DX: N64.4 Mastodynia (principal); Z80.3 Family history of malignant neoplasm of breast; Z78.0 Asymptomatic menopausal state
CPT/HCPCS: 77066; G0279; 77062

== ENCOUNTER → 2024-03-12 | Outpatient (CLI) | payer MEDICARE ==
--- NOTE | 2024-03-18 23:06 | P.PCN ---
Date of Procedure: 03/12/24 Operative Findings: Home sleep study testing Date of services 03/12/2024 History This is a 78-year-old female patient with a history of obstructive sleep apnea. She was diagnosed having obstructive sleep apnea many years back and the patient was given CPAP therapy. Noted the patient has not been using her CPAP due to poor tolerance. Alternative treatments were considered and based on that the patient was given a home sleep study to reestablish diagnosis and severity and discuss alternative options. The patient has multiple medical problems and comorbidities. The patient is known to have chronic bronchial asthma, irritable bowel syndrome, previous history of DVT and pulmonary embolism, history of costochondritis and adrenal insufficiency. More recently, the patient was diagnosed having hyperparathyroidism and she is going to undergo a parathyroid surgery at [facility]. The patient has an Winona score of 6. Pertinent physical findings The height is 5 feet and 4 inches and the weight is 194 pounds Technical description The [employer] system was used to complete this home sleep study. Is a type III home sleep study. The total recording duration was 9 hours and 17 minutes. The study started at 10:21 PM and it ended at 7:38 AM. This was an adequate study as the patient had more than 9 hours of flow and oxygen saturation evaluation Results The respiratory evaluation showed a total of 36 obstructive apneas and 107 obstructive hypopneas and the resulting AHI was 15. No positional variation in the disease severity observed Oxygenation analysis The patient had mild nocturnal oxygen desaturation. Baseline pulse ox when awake was 98%, average pulse ox during sleep was 92% and the lowest pulse ox was 80% and the patient spent approximately 23 minutes of sleep time below pulse ox of 89% Cardiac summary Average heart rate was 57 with a minimum heart rate of 50 and a maximum of 85 Assessment Mild HENRY with an AHI of 15.7 Mild nocturnal oxygen desaturations Mild hypersomnia with an Winona score of 6 Poor tolerability to CPAP therapy Hyperparathyroidism Remote history of DVT and pulmonary embolism Chronic bronchial asthma Plan Patient has been on tolerant to CPAP therapy. Alternatives should be considered. The patient may be a good candidate for an oral appliance for treatment of mild obstructive sleep apnea. I would suggest the patient discussing this with her dentist and proceed with an oral appliance which should help her in her case of mild obstructive sleep apnea. I do not see the need for hypoglossal nerve stimulation/inspire therapy at this point in time. Her disease is mild and the patient is able to respond to an oral appliance.
== END ==
LOC: 3 N SLEEP 11:55
PROVIDERS: ATTEND Internal Medicine Critical Care Medicine
DX: G47.33 Obstructive sleep apnea (adult) (pediatric) (principal); G47.36 Sleep related hypoventilation in conditions classified elsewhere; G47.10 Hypersomnia, unspecified; E21.3 Hyperparathyroidism, unspecified; J45.909 Unspecified asthma, uncomplicated; E27.40 Unspecified adrenocortical insufficiency; K58.9 Irritable bowel syndrome, unspecified; Z86.711 Personal history of pulmonary embolism; Z86.718 Personal history of other venous thrombosis and embolism; Z88.1 Allergy status to other antibiotic agents; Z88.8 Allergy status to other drugs, medicaments and biological substances; Z91.011 Allergy to milk products; Z91.018 Allergy to other foods; Z79.899 Other long term (current) drug therapy; Z79.51 Long term (current) use of inhaled steroids

== ENCOUNTER → 2024-03-26 | Day surgery (SDC) | payer MEDICARE ==
[2024-03-24 09:55] VITALS: BMI 32.5
[~2024-03-26] MED LIST changes: +LIDOCAINE 2% (PF) 20 MG/ML 5 ML VIAL ONE; +PROPOFOL 10 MG/ML 20 ML VIAL IV ONE; -SODIUM CHLORIDE 0.9% 500 ML 500 ML in EMPTY BAG 1 BAG IV PRN; -ZOLEDRONIC ACID 5 MG in SODIUM CHLORIDE 0.9% 100 ML IV NR
[2024-03-26] MEDS: LACTATED RINGERS 1,000 ML IV SCH (07:03)
[2024-03-26 07:09] LABS: Glucose,Whole Blood 89 mg/dL (70-110)
--- NOTE | 2024-03-26 07:10 | P.PCN ---
Date of Procedure: 03/26/24 Procedure(s) Performed: BRIEF HISTORY: Patient is a 78-year-old, pleasant, white female skin polyp anoscopy as a part of evaluation of longstanding history of GERD of several years duration. He has been having intermittent epigastric pain associate with abdominal bloating and early satiety. She has been on famotidine 40 mg twice daily despite which remains symptomatic.. History of pyloric stenosis for which she underwent pyloroplasty 10 years ago. PROCEDURE PERFORMED: Esophagogastroduodenoscopy with biopsy. PREOPERATIVE DIAGNOSIS: Longstanding of GERD/epigastric pain and early satiety. IV sedation per anesthesia. PROCEDURE: After informed consent was obtained, the patient was brought into the endoscopy unit. IV sedation was administered by Anesthesia under continuous monitoring. Initially the Olympus GIF-140 video endoscope was inserted into the mouth. Esophagus intubated without any difficulty. It was gradually advanced into the stomach and duodenum and carefully examined. The bulb and the second part of the duodenum appeared normal. The scope at this time was withdrawn to the stomach, adequately insufflated with air, and upon careful examination, mucosa of the antrum, body, cardia and the fundus appeared normal. The scope was then withdrawn into the esophagus. Small hiatal hernia noted. The GE junction was located at 39 cm from the incisors. There were 2 superficial erosions and circumferential erythema of the GE junction consistent with LA grade B reflux esophagitis. Rest of the esophagus appeared normal and the patient tolerated the procedure well. IMPRESSION: 1. Circumferential erythema and 1 superficial erosion at the GE junction consistent with LA grade B reflux esophagitis. 2. Small hiatal hernia. 3. Patent pylorus RECOMMENDATIONS: The findings of this examination were discussed with the patient as well as her family. She was advised to continue with Pepcid 40 mg twice daily and take omeprazole 20 mg daily as needed. Continue with diet modification and antireflux measures. Follow-up in the office in 3 months..
[2024-03-26 07:37] VITALS: TEMP 97.2
[2024-03-26 08:34] VITALS: BP 109/70; PULSE 72; RESP 18
== END | disposition home or self-care (01) ==
LOC: ORWHC2ENDO 06:04
PROVIDERS: ATTEND Internal Medicine Gastroenterology
DX: K21.00 Gastro-esophageal reflux disease with esophagitis, without bleeding (principal); K44.9 Diaphragmatic hernia without obstruction or gangrene; I10 Essential (primary) hypertension; E78.5 Hyperlipidemia, unspecified; J45.909 Unspecified asthma, uncomplicated; G47.33 Obstructive sleep apnea (adult) (pediatric); M19.90 Unspecified osteoarthritis, unspecified site; Z86.73 Personal history of transient ischemic attack (TIA), and cerebral infarction without residual deficits; Z79.01 Long term (current) use of anticoagulants; Z79.899 Other long term (current) drug therapy; Z98.890 Other specified postprocedural states
CPT/HCPCS: 43235; J2704; J2001

== ENCOUNTER 2024-07-07 09:46 | Day surgery (SDC) | payer MEDICARE ==
[~2024-07-07 09:46] MED LIST changes: +FAMOTIDINE 20 MG/2 ML VIAL IV PRN; +LIDOCAINE 1% (10MG/ML) FOR IV START INTRADERMA PRN; -LIDOCAINE 2% (PF) 20 MG/ML 5 ML VIAL ONE; -PROPOFOL 10 MG/ML 20 ML VIAL IV ONE
[2024-07-07] MEDS: IV FLUID CONTINUATION 1,000 ML IV ONE ×2 (10:13→12:39)
[2024-07-07 10:24] VITALS: RESP 16
[2024-07-07] MEDS: OXYMETAZOLINE 0.05% NASL SPRAY 1 SPRAY BOTTLE EA NOSTRIL PRN (10:30)
[2024-07-07] MEDS: LACTATED RINGERS 1,000 ML IV SCH (10:30)
[2024-07-07] MEDS: HYDROCORTISONE SUCCINATE 100 MG/2 ML VIAL IV STA (10:42)
[2024-07-07] MEDS: ONDANSETRON 4 MG/2 ML VIAL IVP PRN (10:43)
[2024-07-07] MEDS ORDERED: LIDOCAINE 1% INJ 10MG/ML (20 ML MDV) ONE (10:54)
[2024-07-07] MEDS ORDERED: PROPOFOL 10 MG/ML 20 ML VIAL IV ONE (10:54)
[2024-07-07] MEDS ORDERED: fentaNYL (PF) 50 MCG/ML 2 ML AMP ONE (10:54)
[2024-07-07] MEDS ORDERED: SUCCINYLCHOLINE CHLORIDE 200 MG/10 ML VIAL IV ONE (10:54)
[2024-07-07] MEDS: LIDOCAINE 1%-EPI 1:100,000 20 ML VIAL SQ ONE (11:18)
[2024-07-07] MEDS: BACITRACIN OINT 1 EACH PACKET TOPICAL ONE (11:44)
--- NOTE | 2024-07-07 11:50 | P.OP ---
Date of Procedure: 07/07/24 Preoperative Diagnosis: deviated nasal septum Inferior turbinate hypertrophy Right-sided chronic sinusitis Postoperative Diagnosis: same Procedure(s) Performed: right-sided endoscopic sinus surgery including right maxillary antrostomy with removal of tissue from the right maxillary sinus, right anterior posterior ethmoidectomy Inferior turbinoplasty septoplasty Anesthesia: VARUN Surgeon: Nic Yoder Estimated Blood Loss (ml): 10 Pathology: other Condition: stable Disposition: PACU Indications for Procedure: this 78-year-old white female is had difficulties with chronic right-sided sinusitis since last fall showed to be evidence of chronic sinusitis Operative Findings: nasal septum deviated to the left anteriorly to the right posteriorly inferior turbinate hypertrophy there was purulence filling the right maxillary sinus and inflammation within the sinus diffusely as well as mucosal thickening in the ethmoid air cells on the right and frontal sinus Description of Procedure: The patient was brought into the operative suite and placed in a supine position. The patient underwent induction of general anesthesia with oral endotracheal intubation without difficulty. The patient was prepped and draped in the usual aseptic fashion with the orbits in the operating field for monitoring to the case and the computed tomography scan was on the computer screen for review throughout the case. 1% lidocaine with 1 :100,000 epinephrine was infused submucosally into both sides of the nasal septum as well as the lateral nasal wall and anterior tips of the middle turbinates. While this was taking vasoconstrictive effect the inferior turbinates were infractured with [place] elevator and partial submucous resection of the inferior turbinates was performed with a portion of the submucosal soft tissue and the inferior turbinate bone removed with Coblation device. The inferior turbinates were then outfractured with the [place] elevator. A left hemitransfixion incision was then made with the mucoperichondrial and mucoperiosteal flap on the left elevated. The bony cartilaginous junction was disarticulated and the mucoperiosteal flap on the right was elevated. Bony nasal septal deformities were removed with Dewey forceps and an inferior cartilaginous strip was removed leaving a full 1.5 cm caudal strut. Checking intranasally this corrected the nasoseptal deformities and the hemitransfixion incision was closed with a running 4-0 chromic suture. Full 0 endoscopic examination is performed bilaterally. on the right, the middle turbinate was medialized. The maxillary ostium was located with a ballpoint probe and an infundibulotomy was performed followed by uncinectomy. The maxillary antrostomy was enlarged at the expense of the anterior and posterior fontanelle taking care anteriorly not to injure the lacrimal bone. was purulence this was cultured and suctioned clear.The maxillary sinus was evaluated with 30 and 70 endoscope .[Abnormal appearing tissue was removed from the maxillary sinus]. Anterior and posterior ethmoidectomy were then performed from anterior to posterior to the level of the skull base. The roof of the anterior ethmoid air cells were then cleaned from posterior to anterior using up-biting [place]akesley forceps. the frontal sinusotomy was performed using all point probe and giraffe forceps and curved suction The frontal sinus was then explored with 30 endoscope.[Ab normal tissue was removed from the frontal sinus]. [small pledget of nonobstructive Nasopore nasal dressing was placed in the middle meatus bilaterally under direct visualization]. Bilateral [place] airway splints coated with bacitracin ointment were placed and sutured transseptally with a 4-0 nylon suture. The patient was suctioned in oral gastric fashion and was allowed to emerge from general anesthesia having tolerated procedure well and was extubated in the operating suite and transferred to the postoperative recovery area in satisfactory condition.
[2024-07-07 11:59] VITALS: TEMP 98
[2024-07-07] MEDS: HYDROmorphone 0.5 MG/0.5 ML SYRINGE IVP PRN (12:07)
[2024-07-07 13:20] VITALS: BP 151/74; PULSE 64
== END 2024-07-07 13:32 | disposition home or self-care (01) ==
LOC: OR 09:46
PROVIDERS: ATTEND Otolaryngology
DX: D72.10 Eosinophilia, unspecified (principal); J34.2 Deviated nasal septum; J34.3 Hypertrophy of nasal turbinates
CPT/HCPCS: 87070; 87075; 87205; 88300; 88305

== ENCOUNTER → 2025-03-25 | Outpatient (CLI) | payer MEDICARE ==
--- NOTE | 2025-03-25 14:01 | XR ---
EXAMINATION TYPE: XR cervical spine w flex/ext DATE OF EXAM: 03/25/2025 1:44 PM COMPARISON: 06/07/2021 CLINICAL INDICATION: Female, 79 years old with history of M54.2 CERVICALGIA; PHH, pain TECHNIQUE: The cervical spine was imaged in frontal, lateral, odontoid and bilateral oblique. Extensi on and flexion views also performed. FINDINGS: The osseous structures show normal alignment without evidence of an acute fracture. There are osteoph ytes at C5-C6 and C7 of the cervical spine on the anterior and lateral aspects of the vertebral alejandro s. The intervertebral disk spaces are narrowed at multiple levels. Pedicles are intact. Soft tissues are within normal limits. The odontoid appears intact. No abnormal alignment on extension or flexion views. IMPRESSION: 1. No fracture or dislocation. 2. Similar Mild degenerative disc disease changes of the cervical spine. [facility], , 03/25/2025 1:58 PM
== END | disposition home or self-care (01) ==
LOC: RADXRMAIN 13:30
PROVIDERS: ATTEND Pain Medicine Interventional Pain Medicine
DX: M50.30 Other cervical disc degeneration, unspecified cervical region (principal)
CPT/HCPCS: 72052

== ENCOUNTER → 2025-05-27 | Outpatient (CLI) | payer MEDICARE ==
--- NOTE | 2025-05-27 14:07 | MM ---
Reason for Exam: Screening (asymptomatic). Last mammogram was performed 1 year(s) and 4 month(s) ago. Patient History: Menarche at age 13. First Full-Term at age 24. Left ovary removed at age 47. Right ovary removed at age 47. Hysterectomy at age 47. Postmenopausal. Patient has history of breast feeding. Estrogen for 20 years from age 47 until age 67. 07/2005, Bilateral Reduction. Benign Core Biopsy on the right side. Benign Core Biopsy on the left side. Benign Excisional Biopsy on the right side. 02/23/2003, Benign Stereotactic Core Biopsy on the right side. 08/28/2000, Benign Stereotactic Core Biopsy on the left side. Mother had breast cancer, age 50. Risk Values: Darby 5 year model risk: 5.5%. NCI Lifetime model risk: 10.2%. Prior Study Comparison: 11/05/2021 Bilateral Diagnostic Mammogram, LOCATED [facility]IN [facility]. 01/21/2023 Bilateral MG 3D diag mammo w/cad [facility], [facility]. 01/23/2024 Bilateral MG 3D diag mammo w/cad [facility], [facility]. Tissue Density: There are scattered areas of fibroglandular density. Findings: Analyzed By CAD. There is no suspicious group of microcalcifications or new suspicious mass in either breast. Benign-appearing calcifications. Stable position of surgical clip. Overall Assessment: Benign, BI-RAD 2 Management: Screening Mammogram of both breasts in 1 year. . Patient should continue monthly self-breast exams. A clinical breast exam by your physician is recommended on an annual basis. This exam should not preclude additional follow-up of suspicious palpable abnormalities. Note on Darby scores and lifetime risk: 1. A Darby score greater than 3% is considered moderate risk. If this is the case, consider specialist referral to assess eligibility for a risk reducing agent. 2. If overall lifetime risk for the development of breast cancer is 20% or higher, the patient may qualify for future screening with alternating mammogram and breast MRI. [facility], , 05/27/2025 2:04 PM. Electronically signed and approved by: Odin Moncada M.D. Radiologis
== END | disposition home or self-care (01) ==
LOC: RADMAMWWP 13:04
PROVIDERS: ATTEND Internal Medicine Critical Care Medicine
DX: Z12.31 Encounter for screening mammogram for malignant neoplasm of breast (principal); R92.323 Mammographic fibroglandular density, bilateral breasts; Z80.3 Family history of malignant neoplasm of breast; Z78.0 Asymptomatic menopausal state
CPT/HCPCS: 77063; 77067